=== PATIENT | female | born 1965 | race Caucasian/White ===

== ENCOUNTER 2016-08-24 17:43 | Emergency (ER) | payer OTHER ==
--- NOTE | 2016-08-24 18:22 | ER Document Report ---
ED Medical Screen (RME) - General Stated Complaint: SIDE PAIN Mode of Arrival: Ambulatory Information source: Patient Notes: Patient presents complaining of right-sided abdominal pain. Patient states pain does radiate to right flank area. Patient denies any nausea, vomiting, diarrhea. Patient denies any vaginal bleeding or discharge. hx: Diabetes, cholecystectomy, kidney surgery due to kidney stone I have greeted and performed a rapid initial assessment of this patient. A comprehensive ED assessment and evaluation of the patient, analysis of test results and completion of the medical decision making process will be conducted by additional ED providers. TRAVEL OUTSIDE OF THE [place] IN LAST 30 DAYS: No - Related Data Allergies/Adverse Reactions: levofloxacin [From Levaquin] Allergy (Verified 08/24/16 18:20) Sulfa (Sulfonamide Antibiotics) Allergy (Verified 08/24/16 18:20) Past Medical History - Social History Chew tobacco use (# tins/day): No Frequency of alcohol use: None Drug Abuse: None Renal/ Medical History: Denies: Hx Peritoneal Dialysis Physical Exam - Vital signs Vitals: Temp Pulse Resp BP Pulse Ox 97.7 F 67 16 121/61 96 08/24/16 17:51 08/24/16 17:51 08/24/16 17:51 08/24/16 17:51 08/24/16 17:51 - Back Back: CVA tenderness - Right Course - Vital Signs Vital signs: Temp Pulse Resp BP Pulse Ox 97.7 F 67 16 121/61 96 08/24/16 17:51 08/24/16 17:51 08/24/16 17:51 08/24/16 17:51 08/24/16 17:51
[2016-08-24 18:55] LABS: ABSOLUTE BASOPHILS # (AUTO) 0.1 10^3/uL (0.0-0.2); ABSOLUTE EOSINOPHILS # (AUTO) 0.3 10^3/uL (0.0-0.6); ABSOLUTE LYMPHOCYTES (AUTO) 3.5 10^3/uL (0.5-4.7); ABSOLUTE MONOCYTES (AUTO) 0.5 10^3/uL (0.1-1.4); ABSOLUTE NEUT (AUTO) 3.4 10^3/uL (1.7-8.2); BASOPHILS % (AUTO) 0.9 % (0-2); EOSINOPHILS % (AUTO) 3.7 % (0-6); HEMATOCRIT 42.8 % (36.0-47.0); HEMOGLOBIN 14.9 g/dL (12.0-15.5); HGB HCT DIFFERENCE 1.9; LYMPHOCYTES % (AUTO) 45.3 % (13-45); MEAN CORPUSCULAR HGB CONC 34.8 g/dL (32.0-36.0); MEAN CORPUSCULAR VOLUME 89 fl (80-97); MONOCYTES % (AUTO) 6.9 % (3-13); RED BLOOD COUNT 4.81 10^6/uL (3.72-5.28); RED CELL DISTRIBUTION WIDTH 13.8 % (11.5-14.0); SEGMENTED NEUTROPHILS % (AUTO) 43.2 % (42-78); WHITE BLOOD COUNT 7.8 10^3/uL (4.0-10.5)
[2016-08-24 18:58] LABS: APPEARANCE,URINE SLIGHTLY-CLOUDY; BILIRUBIN,URINE NEGATIVE (NEGATIVE); GLUCOSE, URINE >=500 mg/dL (NEGATIVE); KETONES,URINE NEGATIVE (NEGATIVE); LEUKOCYTE ESTERASE,URINE SMALL (NEGATIVE); NITRITE,URINE POSITIVE (NEGATIVE); PROTEIN,URINE NEGATIVE (NEGATIVE)
[2016-08-24 19:17] LABS: ALANINE AMINOTRANSFERASE 71 U/L (9-52); ALBUMIN 4.3 g/dL (3.5-5.0); ALKALINE PHOSPHATASE 124 U/L (38-126); ANION GAP 12 (5-19); ASPARTATE AMINO TRANSFERASE 34 U/L (14-36); BILIRUBIN,TOTAL 0.5 mg/dL (0.2-1.3); BLOOD UREA NITROGEN 14 mg/dL (7-20); CALCIUM 9.4 mg/dL (8.4-10.2); CARBON DIOXIDE 28 mmol/L (22-30); CHLORIDE 103 mmol/L (98-107); CREATININE RESULT 0.79 mg/dL (0.52-1.25); GLUCOSE 160 mg/dL (75-110); LIPASE 191.6 U/L (23-300); SODIUM 142.5 mmol/L (137-145); TOTAL PROTEIN 7.1 g/dL (6.3-8.2)
[2016-08-24] MEDS ORDERED: NAPROXEN 250 MG TABLET PO ONE (20:46)
[2016-08-24] MEDS ORDERED: CEPHALEXIN 500 MG CAPSULE PO ONE (20:46)
--- NOTE | 2016-08-24 20:49 | ER Document Report ---
ED General - General Chief Complaint: Abdominal Pain Stated Complaint: SIDE PAIN Mode of Arrival: Ambulatory Information source: Patient Notes: 51-year-old female presents with complaints of right lower quadrant and right flank pain that started 3 days ago. Patient notes foul-smelling urine. Denies any fevers chills nausea vomiting or diarrhea. Patient denies any burning on urination TRAVEL OUTSIDE OF THE [place] IN LAST 30 DAYS: No - HPI Onset: Other - Three-day duration Onset/Duration: Persistent Quality of pain: Achy Severity: Mild Pain Level: 1 Associated symptoms: Other Exacerbated by: Other - Urination Relieved by: Denies Similar symptoms previously: No Recently seen / treated by doctor: No - Related Data Allergies/Adverse Reactions: levofloxacin [From Levaquin] Allergy (Verified 08/24/16 18:20) Sulfa (Sulfonamide Antibiotics) Allergy (Verified 08/24/16 18:20) Past Medical History - General Information source: Patient - Social History Smoking Status: Current Every Day Smoker Cigarette use (# per day): Yes Chew tobacco use (# tins/day): No Smoking Education Provided: No Frequency of alcohol use: None Drug Abuse: None Family History: Reviewed & Not Pertinent Patient has suicidal ideation: No Patient has homicidal ideation: No Endocrine Medical History: Reports: Hx Diabetes Mellitus Type 2 Renal/ Medical History: Reports: Hx Kidney Stones. Denies: Hx Peritoneal Dialysis Past Surgical History: Reports: Hx Cholecystectomy, Hx Genitourinary Surgery - BLADDER LIFT, Hx Kidney (Renal Surgery) Review of Systems - Review of Systems Notes: REVIEW OF SYSTEMS: CONSTITUTIONAL : Denies fever, chills, or sweats. Denies recent illness. EENT: Denies eye, ear, throat, or mouth pain or symptoms. Denies nasal or sinus congestion or discharge. Denies throat, tongue, or mouth swelling or difficulty swallowing. CARDIOVASCULAR: Denies chest pain. Denies palpitations or racing or irregular heart beat. Denies ankle edema. RESPIRATORY: Denies cough, cold, or chest congestion. Denies shortness of breath, difficulty breathing, or wheezing. GASTROINTESTINAL: Denies abdominal pain or distention. Denies nausea, vomiting , or diarrhea. Denies blood in vomitus, stools, or per rectum. Denies black, tarry stools. Denies constipation. GENITOURINARY: Admits to foul-smelling urine FEMALE GENITOURINARY: Denies vaginal bleeding, heavy or abnormal periods, irregular periods. Denies vaginal discharge or odor. MUSCULOSKELETAL: Admits to flank pain. SKIN: Denies rash, lesions or sores. HEMATOLOGIC : Denies easy bruising or bleeding. LYMPHATIC: Denies swollen, enlarged glands. NEUROLOGICAL: Denies confusion or altered mental status. Denies passing out or loss of consciousness. Denies dizziness or lightheadedness. Denies headache. Denies weakness or paralysis or loss of use of either side. Denies problems with gait or speech. Denies sensory loss, numbness, or tingling. Denies seizures. PSYCHIATRIC: Denies anxiety or stress. Denies depression, suicidal ideation, or homicidal ideation. ALL OTHER SYSTEMS REVIEWED AND NEGATIVE. Dictation was performed using [employer] voice recognition software PHYSICAL EXAMINATION: GENERAL: Well-appearing, well-nourished and in no acute distress. HEAD: Atraumatic, normocephalic. EYES: Pupils equal round and reactive to light, extraocular movements intact, conjunctiva are normal. ENT: Nares patent, oropharynx clear without exudates. Moist mucous membranes. NECK: Normal range of motion, supple without lymphadenopathy LUNGS: Breath sounds clear to auscultation bilaterally and equal. No wheezes rales or rhonchi. HEART: Regular rate and rhythm without murmurs ABDOMEN: Soft, nontender, nondistended abdomen. No guarding, no rebound. No masses appreciated. Female : deferred Musculoskeletal: Right flank tenderness on palpation CVA NEUROLOGICAL: Cranial nerves grossly intact. Normal speech, normal gait. Normal sensory, motor exams PSYCH: Normal mood, normal affect. SKIN: Warm, Dry, normal turgor, no rashes or lesions noted. Physical Exam - Vital signs Vitals: Temp Pulse Resp BP Pulse Ox 97.7 F 67 16 121/61 96 08/24/16 17:51 08/24/16 17:51 08/24/16 17:51 08/24/16 17:51 08/24/16 17:51 Course - Re-evaluation Re-evalutation: 08/24/16 22:31 Physical examination is consistent with suprapubic right flank pain. Patient has allergies to levofloxacin and sulfa, she will be started on Keflex and is otherwise stable. Lab work otherwise notes no acute abnormality After performing a Medical Screening Examination, I estimate there is LOW risk for ACUTE APPENDICITIS, BOWEL OBSTRUCTION, ACUTE CHOLECYSTITIS, PERFORATED DIVERTICULITIS, INCARCERATED HERNIA, PANCREATITIS, PELVIC INFLAMMATORY DISEASE, PERFORATED ULCER, ECTOPIC , or TUBO-OVARIAN ABSCESS, thus I consider the discharge disposition reasonable. Also, there is no evidence or peritonitis , sepsis, or toxicity. The patient and I have discussed the diagnosis and risks , and we agree with discharging home with close follow-up with the understanding that symptoms and presentations can change. We also discussed returning to the Emergency Department immediately if new or worsening symptoms occur. We have discussed the symptoms which are most concerning (e.g., bloody stool, fever, changing or worsening pain, vomiting) that necessitate immediate return. - Vital Signs Vital signs: Temp Pulse Resp BP Pulse Ox 97.6 F 70 16 118/62 97 08/24/16 21:00 08/24/16 21:00 08/24/16 21:00 08/24/16 21:00 08/24/16 21:00 - Laboratory Result Diagrams: 08/24/16 18:35 08/24/16 18:35 Laboratory results interpreted by me: 08/24/16 08/24/16 08/24/16 18:35 18:35 18:35 Lymphocytes % 45.3 H Glucose 160 H ALT 71 H Urine Glucose (UA) >=500 H Urine Nitrite POSITIVE H Urine Urobilinogen 2.0 H Ur Leukocyte Esterase SMALL H Discharge - Discharge Clinical Impression: RLQ abdominal pain UTI (urinary tract infection) Qualifiers: Urinary tract infection type: acute cystitis Hematuria presence: with hematuria Qualified Code(s): N30.01 - Acute cystitis with hematuria Condition: Stable Disposition: HOME, SELF-CARE Instructions: Abdominal Pain ([facility]), Urinary Tract Infection ([facility]) Additional Instructions: Follow up with your physician tomorrow for further care or return to the ED IMMEDIATELY if symptoms worsen or new concerns occur Prescriptions: Cephalexin Monohydrate [Keflex 500 mg Capsule] 500 mg PO BID #20 capsule Hydrocodone/Acetaminophen [[place] 5-325 mg Tablet] 1 tab PO Q6 #10 tablet Forms: Return to Work
[2016-08-24 21:03] VITALS: BP 118/62
== END 2016-08-24 21:03 | disposition home or self-care (01) ==
LOC: ER 17:43
DX: N30.01 Acute cystitis with hematuria (principal); E11.9 Type 2 diabetes mellitus without complications; F17.210 Nicotine dependence, cigarettes, uncomplicated; Z87.442 Personal history of urinary calculi; Z90.49 Acquired absence of other specified parts of digestive tract; Z88.1 Allergy status to other antibiotic agents; Z88.2 Allergy status to sulfonamides
CPT/HCPCS: 36415; 80053; 81001; 83690; 84703; 85025; 99284

== ENCOUNTER 2016-11-09 16:49 | Emergency (ER) | payer OTHER ==
[2016-11-09] MEDS ORDERED: ASPIRIN 325 MG TABLET PO ONE (18:49)
--- NOTE | 2016-11-09 18:55 | ER Document Report ---
ED Medical Screen (RME) - General TRAVEL OUTSIDE OF THE [place] IN LAST 30 DAYS: No <MEAGNA FAJARDO - Last Filed: 11/09/16 18:48> <DENZEL NOLAND - Last Filed: 11/09/16 20:31> - General Chief Complaint: Urinary Problem Stated Complaint: WEAKNESS,SHORTNESS OF BREATH Time Seen by Provider: 11/09/16 18:40 Notes: 51-year-old female presents to the emergency department from urgent care for "really bad urinary tract infection." Patient states she went to urgent care today for some shortness of breath, heart racing, general malaise, and decreased urination. Patient states she feels like she can't catch her breath. Patient's symptoms were onset 2 days ago. Patient states she is only urinating very small amounts and she normally urinates much more. Patient had a mild stroke in September and was evaluated at [facility]. Patient states she had some fevers yesterday but not today. Patient has diabetes mellitus and is taking metformin. (MEAGAN FAJARDO) - Related Data Allergies/Adverse Reactions: levofloxacin [From Levaquin] Allergy (Verified 11/09/16 18:41) Sulfa (Sulfonamide Antibiotics) Allergy (Verified 11/09/16 18:41) Past Medical History Endocrine Medical History: Reports: Hx Diabetes Mellitus Type 2 Renal/ Medical History: Reports: Hx Kidney Stones. Denies: Hx Peritoneal Dialysis Past Surgical History: Reports: Hx Cholecystectomy, Hx Genitourinary Surgery - BLADDER LIFT, Hx Kidney (Renal Surgery) <MEAGAN FAJARDO - Last Filed: 11/09/16 18:48> Physical Exam <MEAGAN FAJARDO - Last Filed: 11/09/16 18:48> <DENZEL NOLAND - Last Filed: 11/09/16 20:31> - Vital signs Vitals: Temp Pulse Resp BP Pulse Ox 98.3 F 101 H 18 101/62 94 11/09/16 17:30 11/09/16 17:30 11/09/16 17:30 11/09/16 17:30 11/09/16 17:30 - Notes Notes: GENERAL: Alert, interacts well. No acute distress. EYES: Pupils equal, round, and reactive to light. Disconjugate gaze. LUNGS: Clear to auscultation bilaterally, no wheezes, rales, or rhonchi. No respiratory distress. HEART: Regular rate and rhythm. No murmurs, gallops, or rubs. NEUROLOGICAL: Alert and oriented x3. Normal speech. (MEAGAN FAJARDO) Course - Laboratory Result Diagrams: 11/09/16 19:15 11/09/16 19:15 <DENZEL NOLAND - Last Filed: 11/09/16 20:31> - Vital Signs Vital signs: Temp Pulse Resp BP Pulse Ox 98.3 F 101 H 18 101/62 94 11/09/16 17:30 11/09/16 17:30 11/09/16 17:30 11/09/16 17:30 11/09/16 17:30 - Laboratory Laboratory results interpreted by me: 11/09/16 11/09/16 11/09/16 19:15 19:15 19:55 WBC 13.2 H RDW 14.1 H Absolute Neutrophils 8.7 H Glucose 139 H Total Bilirubin 1.6 H Direct Bilirubin 0.5 H AST 46 H ALT 75 H Alkaline Phosphatase 160 H Urine Protein 100 H Urine Blood SMALL H Ur Leukocyte Esterase LARGE H Scribe Documentation - Scribe Written by Scribe:: Jose Enrique Cotton 11/09/16 18:50 acting as scribe for :: Dagmar <MEAGAN FAJARDO - Last Filed: 11/09/16 18:48>
[2016-11-09 19:28] LABS: ABSOLUTE BASOPHILS # (AUTO) 0.1 10^3/uL (0.0-0.2); ABSOLUTE LYMPHOCYTES (AUTO) 3.1 10^3/uL (0.5-4.7); ABSOLUTE MONOCYTES (AUTO) 1.3 10^3/uL (0.1-1.4); ABSOLUTE NEUT (AUTO) 8.7 10^3/uL (1.7-8.2); BASOPHILS % (AUTO) 0.8 % (0-2); EOSINOPHILS % (AUTO) 0.2 % (0-6); HEMATOCRIT 45.8 % (36.0-47.0); HGB HCT DIFFERENCE -0.8; LYMPHOCYTES % (AUTO) 23.6 % (13-45); MEAN CORPUSCULAR HEMOGLOBIN 29.4 pg (27.0-33.4); MEAN CORPUSCULAR HGB CONC 32.8 g/dL (32.0-36.0); MEAN CORPUSCULAR VOLUME 90 fl (80-97); MONOCYTES % (AUTO) 9.9 % (3-13); RED BLOOD COUNT 5.11 10^6/uL (3.72-5.28); RED CELL DISTRIBUTION WIDTH 14.1 % (11.5-14.0); SEGMENTED NEUTROPHILS % (AUTO) 65.5 % (42-78); WHITE BLOOD COUNT 13.2 10^3/uL (4.0-10.5)
--- NOTE | 2016-11-09 19:32 | RADIOLOGY REPORT (SQ) ---
EXAM DESCRIPTION: CHEST PA/LAT COMPLETED DATE/TIME: 11/09/2016 7:23 pm REASON FOR STUDY: palpitations COMPARISON: None. EXAM PARAMETERS: NUMBER OF VIEWS: two views TECHNIQUE: Digital Frontal and Lateral radiographic views of the chest acquired. RADIATION DOSE: NA LIMITATIONS: none FINDINGS: LUNGS AND PLEURA: No opacities, masses or pneumothorax. No pleural effusion. MEDIASTINUM AND HILAR STRUCTURES: No masses or contour abnormalities. HEART AND VASCULAR STRUCTURES: Heart normal size. No evidence for failure. BONES: No acute findings. HARDWARE: None in the chest. OTHER: No other significant finding. IMPRESSION: NO SIGNIFICANT RADIOGRAPHIC FINDING IN THE CHEST. TECHNICAL DOCUMENTATION: JOB ID: [id number] [employer]- All Rights Reserved
[2016-11-09 19:41] LABS: ALANINE AMINOTRANSFERASE 75 U/L (9-52); ALBUMIN 4.4 g/dL (3.5-5.0); ALKALINE PHOSPHATASE 160 U/L (38-126); ANION GAP 13 (5-19); ASPARTATE AMINO TRANSFERASE 46 U/L (14-36); BILIRUBIN,DIRECT 0.5 mg/dL (0.0-0.4); BILIRUBIN,TOTAL 1.6 mg/dL (0.2-1.3); BLOOD UREA NITROGEN 14 mg/dL (7-20); CALCIUM 9.4 mg/dL (8.4-10.2); CARBON DIOXIDE 23 mmol/L (22-30); CHLORIDE 103 mmol/L (98-107); CREATINE KINASE 63 U/L (30-135); CREATININE RESULT 0.87 mg/dL (0.52-1.25); GLUCOSE 139 mg/dL (75-110); POTASSIUM 4.3 mmol/L (3.6-5.0); TOTAL PROTEIN 7.8 g/dL (6.3-8.2)
[2016-11-09] MEDS ORDERED: MORPHINE SULFATE 10 MG/ML INJ IV ONE (19:43)
[2016-11-09] MEDS ORDERED: ONDANSETRON HCL INJ/PF 4 MG/2 ML SDV IV ONE (19:43)
[2016-11-09] MEDS ORDERED: NORMAL SALINE 1000 ML 1,000 ML IV ONE ×3 (19:43→22:43)
--- NOTE | 2016-11-09 19:47 | ER Document Report ---
ED General - General Chief Complaint: Urinary Problem Stated Complaint: WEAKNESS,SHORTNESS OF BREATH Time Seen by Provider: 11/09/16 18:40 Notes: Patient is a 51-year-old female who comes emergency department for chief complaint of feeling poorly for the past 2 days, she states she has decreased urination, she feels like her heart is racing intermittently, she has increased malaise, she states that she feels short of breath intermittently. She states that after she came to the emergency department on referral from urgent care she started having pain in her mid to lower abdomen worse on the right side. She has not eaten anything since last night due to lack of appetite. She states she feels intermittently nauseated. She denies fever, dysuria, cough, chest pain, headache, dizziness. Past medical history of type 2 diabetes on metformin, cholecystectomy, bladder lift, kidney stones. TRAVEL OUTSIDE OF THE [place] IN LAST 30 DAYS: No - Related Data Allergies/Adverse Reactions: levofloxacin [From Levaquin] Allergy (Verified 11/09/16 18:41) Sulfa (Sulfonamide Antibiotics) Allergy (Verified 11/09/16 18:41) Past Medical History - General Information source: Patient - Social History Smoking Status: Never Smoker Frequency of alcohol use: None Drug Abuse: None Lives with: Family Family History: Reviewed & Not Pertinent Endocrine Medical History: Reports: Hx Diabetes Mellitus Type 2 Renal/ Medical History: Reports: Hx Kidney Stones. Denies: Hx Peritoneal Dialysis Past Surgical History: Reports: Hx Cholecystectomy, Hx Genitourinary Surgery - BLADDER LIFT, Hx Kidney (Renal Surgery) Review of Systems - Review of Systems Constitutional: See HPI EENT: No symptoms reported Cardiovascular: See HPI Respiratory: See HPI Gastrointestinal: See HPI Genitourinary: See HPI Female Genitourinary: No symptoms reported Musculoskeletal: No symptoms reported Skin: No symptoms reported Hematologic/Lymphatic: No symptoms reported Neurological/Psychological: See HPI Physical Exam - Vital signs Vitals: Temp Pulse Resp BP Pulse Ox 98.3 F 101 H 18 101/62 94 11/09/16 17:30 11/09/16 17:30 11/09/16 17:30 11/09/16 17:30 11/09/16 17:30 Interpretation: Normal - General General appearance: Appears well In distress: None - Patient appears generally tired but is otherwise in no distress - HEENT Head: Normocephalic, Atraumatic Eyes: Normal Conjunctiva: Normal Extraocular movements intact: Yes Eyelashes: Normal Pupils: PERRL Sinus: Normal Nasal: Normal Mouth/Lips: Normal Mucous membranes: Normal Pharynx: Normal Neck: Normal - Respiratory Respiratory status: No respiratory distress Chest status: Nontender Breath sounds: Normal. No: Decreased air movement, Wheezing Chest palpation: Normal - Cardiovascular Rhythm: Regular, Tachycardia Heart sounds: Normal auscultation, S1 appreciated, S2 appreciated Murmur: No - Abdominal Inspection: Normal Distension: No distension Bowel sounds: Normal Tenderness: Tender - Very mild generalized abdominal tenderness, nonspecific, no guarding, no rebound tenderness, no rigidity, no distention. No: Guarding Organomegaly: No organomegaly - Back Back: Normal, Nontender. No: Tender, CVA tenderness - Extremities General upper extremity: Normal inspection, Nontender, Normal color, Normal ROM , Normal temperature General lower extremity: Normal inspection, Nontender, Normal color, Normal ROM , Normal temperature, Normal weight bearing. No: Lorenzo's sign - Neurological Neuro grossly intact: Yes Cognition: Normal Orientation: AAOx4 Hailey Coma Scale Eye Opening: Spontaneous Hailey Coma Scale Verbal: Oriented Hailey Coma Scale Motor: Obeys Commands Hailey Coma Scale Total: 15 Speech: Normal Motor strength normal: LUE, RUE, LLE, RLE Sensory: Normal - Psychological Associated symptoms: Normal affect, Normal mood - Skin Skin Temperature: Warm Skin Moisture: Dry Skin Color: Normal Course - Re-evaluation Re-evalutation: Initially patient borderline tachycardic with mild hypotension, this worsened to 90s over 50s. Patient has a very mild generalized abdominal tenderness which is nonspecific with no guarding. No CVA tenderness noted. CBC shows mild leukocytosis with elevation of neutrophils but no bandemia, chemistry is generally unremarkable, urine is consistent with infection. Culture placed. Rocephin given. Because of leukocytosis, abdominal pain, and reported flank pain CT was ordered but shows no ureterolithiasis or other acute etiology other than questionable stranding at the left kidney. Possible pyelonephritis. After 2 more liters of fluid patient's blood pressure normalized. Patient states she feels great. Cardiac workup unremarkable. Discussed with Dr. Bey. He recommends orthostatic vital signs and if normal patient can be discharged on oral antibiotic with follow-up recommendations and return precautions. Orthostatics are normal, patient states she feels great, will place on Keflex, discussed follow-up, discussed return precautions in detail, patient states understanding and agreement. - Vital Signs Vital signs: Temp Pulse Resp BP Pulse Ox 99.0 F 70 16 120/80 96 11/09/16 22:27 11/10/16 00:06 11/10/16 00:01 11/10/16 00:06 11/09/16 23:57 - Laboratory Result Diagrams: 11/09/16 19:15 11/09/16 19:15 Laboratory results interpreted by me: 11/09/16 11/09/16 11/09/16 19:15 19:15 19:55 WBC 13.2 H RDW 14.1 H Absolute Neutrophils 8.7 H Glucose 139 H Total Bilirubin 1.6 H Direct Bilirubin 0.5 H AST 46 H ALT 75 H Alkaline Phosphatase 160 H Urine Protein 100 H Urine Blood SMALL H Ur Leukocyte Esterase LARGE H Discharge - Discharge Clinical Impression: Weakness Urinary tract infection Qualifiers: Urinary tract infection type: site unspecified Hematuria presence: without hematuria Qualified Code(s): N39.0 - Urinary tract infection, site not specified Abdominal pain Qualifiers: Abdominal location: generalized Qualified Code(s): R10.84 - Generalized abdominal pain Condition: Stable Disposition: HOME, SELF-CARE Additional Instructions: Workup shows urinary tract infection. You have been given Rocephin, continue treatment with Keflex, we have a culture growing in our lab. You have kidney stones in your left kidney but you are not currently passing any stones. Follow-up with urology. Follow-up with primary care within the next several days. Return to emergency department immediately if you worsen in any way including vomiting, fever, return or increased pain, passing out, or any other concerning symptoms. Prescriptions: Cephalexin Monohydrate [Keflex 500 mg Capsule] 500 mg PO BID #14 capsule Forms: Return to Work
[2016-11-09 19:54] LABS: CREATINE KINASE MB < 0.22 ng/mL (<4.55); TROPONIN I < 0.012 ng/mL
[2016-11-09 20:22] LABS: APPEARANCE,URINE CLOUDY; BILIRUBIN,URINE NEGATIVE (NEGATIVE); GLUCOSE, URINE NEGATIVE (NEGATIVE); KETONES,URINE NEGATIVE (NEGATIVE); LEUKOCYTE ESTERASE,URINE LARGE (NEGATIVE); NITRITE,URINE NEGATIVE (NEGATIVE); PROTEIN,URINE 100 mg/dL (NEGATIVE); URINE SPECIFIC GRAVITY 1.018; UROBILINOGEN,URINE NEGATIVE mg/dL (<2.0)
[2016-11-09] MEDS ORDERED: CEFTRIAXONE 1 GM/D5W RTU 50 ML IV ONE (20:42)
--- NOTE | 2016-11-09 21:26 | RADIOLOGY REPORT (SQ) ---
EXAM DESCRIPTION: CT LTD RENAL STONE PROTOCOL ON COMPLETED DATE/TIME: 11/09/2016 9:03 pm REASON FOR STUDY: right flank and abd pain, nausea, UTI, hx stones COMPARISON: None. TECHNIQUE: CT scan of the abdomen and pelvis performed without intravenous or oral contrast. Images reviewed with lung, soft tissue, and bone windows. Reconstructed coronal and sagittal MPR images revi ewed. All images stored on PACS. All CT scanners at this facility use dose modulation, iterative reconstruction, and/or weight based d osing when appropriate to reduce radiation dose to as low as reasonably achievable (ALARA). [facility]: Dose Right [facility]: CareDose [facility]: Dose Right [facility]: Teradose 4D [facility]: Sendori RADIATION DOSE: 5.31mGy. LIMITATIONS: None. FINDINGS: LOWER CHEST: No significant findings. No nodules or infiltrates. NON-CONTRASTED LIVER, SPLEEN, ADRENALS: Evaluation limited by lack of IV contrast. No identified sign ificant masses. PANCREAS: There is a cyst in the tail the pancreas. This measures 3.6 cm in greatest diameter. No s olid components are appreciated. GALLBLADDER: Surgically absent. RIGHT KIDNEY AND URETER: No suspicious masses. Assessment limited by lack of IV contrast. No signif icant calcifications. No hydronephrosis or hydroureter. LEFT KIDNEY AND URETER: There is mild left perinephric stranding. There are numerous nonobstructing left renal calculi. The largest measures 6.4 mm. Hounsfield units measure 958. No hydronephrosis or hydroureter. AORTA AND RETROPERITONEUM: No aneurysm. No retroperitoneal masses or adenopathy. BOWEL AND PERITONEAL CAVITY: No obvious masses or inflammatory changes. No free fluid. APPENDIX: Normal. PELVIS, BLADDER, AND ABDOMINAL WALL:No abnormal masses. No free fluid. Bladder normal. BONES: No significant findings. OTHER: There are numerous phleboliths in the pelvis. IMPRESSION: 1. Nonobstructing left renal calculi. No hydronephrosis. There is minimal left perinep hric stranding. 2. 3.6 cm simple cyst in the tail the pancreas. 3. Nothing is noted to explain the patient's right lower quadrant and right flank pain. TECHNICAL DOCUMENTATION: JOB ID: [id number] Quality ID # [id number]: Final reports with documentation of one or more dose reduction techniques (e.g., Au tomated exposure control, adjustment of the mA and/or kV according to patient size, use of iterative reconstruction technique) 2010 [employer]- All Rights Reserved
[2016-11-10] MEDS ORDERED: CEPHALEXIN 500 MG CAPSULE PO ONE (00:05)
[2016-11-10 07:42] VITALS: BP 122/84
--- NOTE | 2016-11-10 07:50 | EKG REPORT ---
SEVERITY:- ABNORMAL ECG - SINUS RHYTHM RIGHT BUNDLE BRANCH BLOCK : Confirmed by: Thomas Miramontes MD 10-Nov-2016 07:50:17
== END 2016-11-10 00:20 | disposition home or self-care (01) ==
LOC: ER 16:49
DX: N39.0 Urinary tract infection, site not specified (principal); R53.1 Weakness; R10.84 Generalized abdominal pain; R53.81 Other malaise; R06.02 Shortness of breath; R10.30 Lower abdominal pain, unspecified; R63.0 Anorexia; D72.828 Other elevated white blood cell count; R11.0 Nausea; R00.0 Tachycardia, unspecified; I95.9 Hypotension, unspecified; E11.9 Type 2 diabetes mellitus without complications; Z79.84 Long term (current) use of oral hypoglycemic drugs; Z90.49 Acquired absence of other specified parts of digestive tract; Z88.1 Allergy status to other antibiotic agents; Z88.2 Allergy status to sulfonamides
CPT/HCPCS: 93005; 99285; 96361; 96375; 96365; 36415; 87040; 87086; 82553; 82550; 85025; 87088; 80053; 81001; 84484; 87186; 71020; 76380; 93010; J2270; J2405; J7030; J0696

== ENCOUNTER 2016-12-09 13:57 | Emergency (ER) | payer OTHER ==
[2016-12-09 14:13] VITALS: BP 126/77
--- NOTE | 2016-12-09 15:03 | ER Document Report ---
ED Medical Screen (RME) - General Chief Complaint: Fall Injury Stated Complaint: FALL HEAD PAIN Time Seen by Provider: 12/09/16 14:58 Notes: Patient fell down some steps about noon today and injured her left hand and wrist. Also hit her head, but says "my head is fine". No loss of consciousness. No neurologic deficits. TRAVEL OUTSIDE OF THE [place] IN LAST 30 DAYS: No - Related Data Allergies/Adverse Reactions: levofloxacin [From Levaquin] Allergy (Verified 11/09/16 18:41) Sulfa (Sulfonamide Antibiotics) Allergy (Verified 11/09/16 18:41) Past Medical History Endocrine Medical History: Reports: Hx Diabetes Mellitus Type 2 Renal/ Medical History: Reports: Hx Kidney Stones. Denies: Hx Peritoneal Dialysis Past Surgical History: Reports: Hx Cholecystectomy, Hx Genitourinary Surgery - BLADDER LIFT, Hx Kidney (Renal Surgery) - Immunizations Hx Diphtheria, Pertussis, Tetanus Vaccination: Yes Physical Exam - Vital signs Vitals: Temp Pulse Resp BP Pulse Ox 98.3 F 82 16 126/77 H 96 12/09/16 14:11 12/09/16 14:11 12/09/16 14:11 12/09/16 14:11 12/09/16 14:11 Course - Vital Signs Vital signs: Temp Pulse Resp BP Pulse Ox 98.3 F 82 16 126/77 H 96 12/09/16 14:11 12/09/16 14:11 12/09/16 14:11 12/09/16 14:11 12/09/16 14:11
--- NOTE | 2016-12-09 15:49 | ER Document Report ---
ED Fall - General Chief Complaint: Fall Injury Stated Complaint: FALL HEAD PAIN Time Seen by Provider: 12/09/16 14:58 Notes: Patient fell down some steps about noon today and injured her left hand and wrist. Also hit her head, but says "my head is fine". No loss of consciousness. No neurologic deficits. Not noted any swelling or tenderness of her scalp anywhere. No rib tenderness and no difficulty breathing. No shortness of breath. No abdominal pains. Primary complaint is of pain of the lateral, ulnar aspect of the left wrist and hand. TRAVEL OUTSIDE OF THE [place] IN LAST 30 DAYS: No - Related data Allergies/Adverse Reactions: levofloxacin [From Levaquin] Allergy (Verified 11/09/16 18:41) Sulfa (Sulfonamide Antibiotics) Allergy (Verified 11/09/16 18:41) Past Medical History - Social History Smoking Status: Current Every Day Smoker Cigarette use (# per day): Yes Family History: Reviewed & Not Pertinent Patient has suicidal ideation: No Patient has homicidal ideation: No Neurological Medical History: Reports: Hx Cerebrovascular Accident Endocrine Medical History: Reports: Hx Diabetes Mellitus Type 2 Renal/ Medical History: Reports: Hx Kidney Stones Past Surgical History: Reports: Hx Cholecystectomy, Hx Genitourinary Surgery - BLADDER LIFT, Hx Kidney (Renal Surgery) - Immunizations Hx Diphtheria, Pertussis, Tetanus Vaccination: Yes Review of Systems - Review of Systems Notes: REVIEW OF SYSTEMS: CONSTITUTIONAL : Denies fever. EENT: Denies eye, ear, nose or mouth or throat pain or other symptoms. CARDIOVASCULAR: Denies chest pain. RESPIRATORY: Denies cough, chest congestion, or shortness of breath. GASTROINTESTINAL: Denies abdominal pain or nausea, vomiting, or diarrhea. GENITOURINARY: Denies difficulty or painful urinating, urinary frequency, blood in urine. MUSCULOSKELETAL: Denies back or neck pain. See HPI. SKIN: Denies rash or skin lesions. NEUROLOGICAL: Denies LOC or altered mental status. Denies headache. Denies sensory loss or motor deficits. ALL OTHER SYSTEMS REVIEWED AND NEGATIVE. Physical Exam - Vital signs Vitals: Temp Pulse Resp BP Pulse Ox 98.3 F 82 16 126/77 H 96 12/09/16 14:11 12/09/16 14:11 12/09/16 14:11 12/09/16 14:11 12/09/16 14:11 Interpretation: Normal - Notes Notes: PHYSICAL EXAMINATION: GENERAL: Well-appearing, in no acute distress. Vital signs are normal. HEAD: Atraumatic, normocephalic. No hematoma felt. No tender areas felt. EYES: Pupils equal round and reactive to light, extraocular movements intact. NECK: Normal range of motion, supple. LUNGS: Breath sounds clear and equal bilaterally. HEART: Regular rate and rhythm without murmurs. ABDOMEN: Soft, nontender. No guarding or rebound. BACK: No tenderness throughout entire back. EXTREMITIES: Normal range of motion without pain except patient has complained of pain along the ulnar aspect of the left wrist and left hand. On the dorsal aspect of that wrist, there is a small cystic structure which patient says is new. It looks and feels like a ganglion cyst. I suppose it could be of traumatic origin. No bony deformities or dislocations noted on physical exam. NEUROLOGICAL: Normal speech, normal gait. Normal sensory, motor, and reflex exams. Awake, alert, and oriented x3. Cranial nerves normal. PSYCH: Normal mood, normal affect. SKIN: Warm, dry, no rashes. Course - Vital Signs Vital signs: Temp Pulse Resp BP Pulse Ox 98.3 F 82 16 126/77 H 96 12/09/16 14:11 12/09/16 14:11 12/09/16 14:11 12/09/16 14:11 12/09/16 14:11 - Diagnostic Test Radiology results interpreted by me: 12/09/16 21:04 X-ray of the left wrist and left hand are both normal except for some degenerative arthritic changes. Procedures - Immobilization Left Wrist Immobilizer type: Cock-up Performed by: PCT Post-Proc Neuro Vasc Exam: Normal Alignment checked and good: Yes Discharge - Discharge Clinical Impression: Left wrist sprain Qualifiers: Encounter type: initial encounter Qualified Code(s): S63.502A - Unspecified sprain of left wrist, initial encounter Contusion of head Qualifiers: Encounter type: initial encounter Contusion of head detail: unspecified part of head Qualified Code(s): S00.93XA - Contusion of unspecified part of head, initial encounter Condition: Stable Disposition: HOME, SELF-CARE Additional Instructions: HEAD INJURY PRECAUTIONS: At this point, there is no evidence that your head injury is serious. Observation is necessary, however. Take only clear liquids for the first few hours, unless told otherwise by the doctor. If no pain medication was prescribed, you may take acetaminophen according to the directions on the bottle. Do not take any medication that may alter your level of alertness (unless you've discussed it with the doctor first) . Limit activity for the first 24 hours. Bed rest is best. During the first 24 hours, check to see approximately every two to three hours that the patient is easily arousable, responds normally, and can perform common tasks such as walking without difficulty. Contact your doctor or go to the hospital if any of the following things occur: Persistent vomiting, difficulty in arousing the patient, worsening or continued headache, or failure to improve as expected. Head injuries can cause symptoms that persist for a few days or even a few weeks. MUSCLE STRAIN: You have strained a muscle -- torn the fibers within the muscle. This often occurs with strenuous exertion, or during an injury that suddenly stretches the muscle. The seriousness of a strain varies. Some strains heal within days, others cause problems for months. X-rays cannot show a muscle strain. X-rays are taken only if symptoms suggest that a fracture could be present. The usual treatment of a muscle strain is rest and ice packs. Sometimes, a sling, splint, or crutches may be necessary to rest the muscle. The muscle can be used again once pain subsides. Severe strains require a special exercise and stretching program to prevent permanent stiffness and disability. Your doctor will advise you if this will be necessary. Call the doctor immediately if pain or swelling becomes severe, or if numbness or discoloration develop. CONTUSION: Your injury has resulted in a contusion -- a crushing of the deep tissues. No injury to important structures was detected during the physician's exam. Contusions vary in the amount of pain they cause, and in the length of time required for healing. Typically, the area will become bruised, and will remain painful to touch for two or three weeks. However, most patients are back to working and playing within a few days. After the initial period of rest and cold-packs, your symptoms (together with the doctor's recommendations) will determine how rapidly you can get back to full activity. Usually this means "do what feels okay, but don't do things that hurt." If re-examination was recommended, it's important to follow up as instructed. Call the doctor or return any time if pain increases, if swelling becomes severe, if you develop numbness or weakness in an injured extremity, or if any other alarming symptoms occur. SPRAIN: Your injury is a sprain. A sprain results from stretching or tearing of the ligaments, usually from a twisting injury. The ligaments will require time and protection in order to heal properly. Many sprains are quite disabling and should be taken seriously. The usual initial treatment of sprains is cold packs, elevation, and rest of the injured area. Your physician has assessed the seriousness of your ligament injury, and has outlined a treatment plan. Understand that this treatment may change, depending on how you progress. If a re-examination was recommended, it is important that you follow up as instructed. Call the doctor any time if there is severe pain, numbness, or loss of function in the injured area. SPLINT PRECAUTIONS: A splint has been placed. This will protect the area while healing begins. Your problem does NOT normally require a cast. It MUST, however, be held still! Keep the splint on ALL THE TIME until instructed to remove it by the doctor. As you begin to use the area, be careful. You shouldn't do anything which causes discomfort -- you may disturb the injury even with the splint in place. After the initial period of rest and elevation, if splint does not prevent pain when you move, come back. You may require placement of a different splint , or a cast. If there is unexpected severe pain, or numbness, discoloration, or swelling beyond the splint, you should return at once. If you feel that the splint has broken or become loose, come back. ICE & ELEVATION: Apply ice packs frequently against the painful area. Many different schedules are recommended, such as "20 minutes on, 20 minutes off" or "one hour ice, two hours rest." If you need to work, you may need to go longer between ice treatments. You should plan to have the area ice packed AT LEAST one- fourth of the time. The ice should be applied over the wrap, tape, or splint, or over a layer of cloth -- not directly against the skin. Some ice bags have a built-in cloth and can be put directly on the skin. Your injured part should be elevated as much as possible over the next 48 hours. Try to keep the injury above the level of the heart. Avoid use of the injured area. Elevation and rest will decrease the swelling. ORAL NARCOTIC MEDICATION: You have been given a prescription for pain control. This medication is a narcotic. It's best taken with food, as nausea can result if taken on an empty stomach. Don't operate machinery or drive within six hours of taking this medication. Do not combine this medicine with alcohol, or with any medication which can cause sedation (such as cold tablets or sleeping pills) unless you get permission from the physician. Narcotics tend to cause constipation. If possible, drink plenty of fluids and eat a diet high in fiber and fruits. FOLLOW-UP CARE: If you have been referred to a physician for follow-up care, call the physician s office for an appointment as you were instructed or within the next two days. If you experience worsening or a significant change in your symptoms, notify the physician immediately or return to the Emergency Department at any time for re-evaluation. Prescriptions: Oxycodone HCl/Acetaminophen [Percocet 5-325 mg Tablet] 1 - 2 tab PO Q4H PRN #15 tablet PRN Reason: Forms: Return to Work Referrals: EFRAIN MARCELINO DO [ACTIVE STAFF] - Follow up as needed
--- NOTE | 2016-12-09 15:52 | RADIOLOGY REPORT (SQ) ---
EXAM DESCRIPTION: WRIST LEFT 3 VIEWS COMPLETED DATE/TIME: 12/09/2016 3:35 pm REASON FOR STUDY: Fell and injured left hand and wrist COMPARISON: None. NUMBER OF VIEWS: Three views. TECHNIQUE: AP, lateral, and oblique radiographic images acquired of the left wrist. LIMITATIONS: None. FINDINGS: MINERALIZATION: Normal. BONES: No fracture or dislocation. There are mild degenerative changes in the 1st carpometacarpal art int. SOFT TISSUES: No soft tissue swelling. No foreign body. OTHER: No other significant finding. IMPRESSION: Mild degenerative joint changes with no acute abnormality. TECHNICAL DOCUMENTATION: JOB ID: [id number] [employer]- All Rights Reserved
--- NOTE | 2016-12-09 15:53 | RADIOLOGY REPORT (SQ) ---
EXAM DESCRIPTION: HAND LEFT 3 VIEWS COMPLETED DATE/TIME: 12/09/2016 3:35 pm REASON FOR STUDY: : Injured left hand COMPARISON: None. EXAM PARAMETERS: NUMBER OF VIEWS: Three views. TECHNIQUE: AP, lateral and oblique radiographic images acquired of the left hand. LIMITATIONS: None. FINDINGS: MINERALIZATION: Normal. BONES: No acute fracture or dislocation. No worrisome bone lesions. JOINTS: There are mild degenerative changes the 1st carpometacarpal joint. SOFT TISSUES: No soft tissue swelling. No foreign body. OTHER: No other significant finding. IMPRESSION: Mild degenerative joint changes with acute osseous abnormality. TECHNICAL DOCUMENTATION: JOB ID: [id number] [employer]- All Rights Reserved
== END 2016-12-09 15:56 | disposition home or self-care (01) ==
LOC: ER 13:57
DX: S63.502A Unspecified sprain of left wrist, initial encounter (principal); S00.93XA Contusion of unspecified part of head, initial encounter; W10.9XXA Fall (on) (from) unspecified stairs and steps, initial encounter; M25.532 Pain in left wrist; M79.642 Pain in left hand; E11.9 Type 2 diabetes mellitus without complications; F17.210 Nicotine dependence, cigarettes, uncomplicated; Z86.73 Personal history of transient ischemic attack (TIA), and cerebral infarction without residual deficits
CPT/HCPCS: 99283; 73130; 73110; L3984

== ENCOUNTER 2017-02-28 18:15 | Inpatient (IN) | payer OTHER ==
[2017-02-28] MEDS ORDERED: HYDROCODONE/ACETAMINOPHEN 5-325 MG 6 TAB/DSPK PO PRN (18:47)
[2017-02-28] MEDS ORDERED: ONDANSETRON 4 MG TAB.RAPDIS SL ONE (18:47)
--- NOTE | 2017-02-28 18:48 | ER Document Report ---
ED Medical Screen (RME) - General Chief Complaint: Vomiting Stated Complaint: VOMITING,BACK PAIN Time Seen by Provider: 02/28/17 18:44 Mode of Arrival: Ambulatory Information source: Patient TRAVEL OUTSIDE OF THE [place] IN LAST 30 DAYS: No - HPI Patient complains to provider of: Abdominal pain with nausea and vomiting Onset: Last week Notes: 02/28/17 18:47 Patient is a 51-year-old female presenting to the emergency room today complaining of diffuse abdominal pain with nausea and vomiting that has been going on for the past 7 days, she reports chills with subjective fever, has a history of kidney stones and urinary tract infections in the past with slightly similar symptoms, she does report that the pain starts in the left flank and wraps around to her back into the right flank, however when I palpate her abdomen while sitting up in a chair she is diffusely tender - Related Data Allergies/Adverse Reactions: levofloxacin [From Levaquin] Allergy (Verified 02/28/17 18:27) Sulfa (Sulfonamide Antibiotics) Allergy (Verified 02/28/17 18:27) Past Medical History - Social History Chew tobacco use (# tins/day): No Frequency of alcohol use: None Drug Abuse: None Neurological Medical History: Reports: Hx Cerebrovascular Accident Endocrine Medical History: Reports: Hx Diabetes Mellitus Type 2 Renal/ Medical History: Reports: Hx Kidney Stones. Denies: Hx Peritoneal Dialysis Past Surgical History: Reports: Hx Cholecystectomy, Hx Genitourinary Surgery - BLADDER LIFT, Hx Kidney (Renal Surgery) - Immunizations Hx Diphtheria, Pertussis, Tetanus Vaccination: Yes Physical Exam - Vital signs Vitals: Temp Pulse Resp BP Pulse Ox 97.5 F 97 16 135/81 H 97 02/28/17 18:24 02/28/17 18:24 02/28/17 18:24 02/28/17 18:24 02/28/17 18:24 Course - Vital Signs Vital signs: Temp Pulse Resp BP Pulse Ox 97.5 F 97 16 135/81 H 97 02/28/17 18:24 02/28/17 18:24 02/28/17 18:24 02/28/17 18:24 02/28/17 18:24
[2017-02-28] MEDS ORDERED: HYDROCODONE/ACETAMINOPHEN 5-325 MG TABLET PO ONE (18:56)
[2017-02-28 19:52] LABS: ABSOLUTE BASOPHILS # (AUTO) 0.1 10^3/uL (0.0-0.2); ABSOLUTE EOSINOPHILS # (AUTO) 0.1 10^3/uL (0.0-0.6); ABSOLUTE LYMPHOCYTES (AUTO) 2.5 10^3/uL (0.5-4.7); ABSOLUTE MONOCYTES (AUTO) 0.8 10^3/uL (0.1-1.4); ABSOLUTE NEUT (AUTO) 3.2 10^3/uL (1.7-8.2); BASOPHILS % (AUTO) 0.9 % (0-2); EOSINOPHILS % (AUTO) 1.9 % (0-6); HEMOGLOBIN 13.4 g/dL (12.0-15.5); HGB HCT DIFFERENCE -1.8; MEAN CORPUSCULAR HEMOGLOBIN 29.4 pg (27.0-33.4); MEAN CORPUSCULAR HGB CONC 31.9 g/dL (32.0-36.0); MEAN CORPUSCULAR VOLUME 92 fl (80-97); MONOCYTES % (AUTO) 11.2 % (3-13); RED BLOOD COUNT 4.57 10^6/uL (3.72-5.28); RED CELL DISTRIBUTION WIDTH 13.7 % (11.5-14.0); WHITE BLOOD COUNT 6.7 10^3/uL (4.0-10.5)
[2017-02-28 19:58] LABS: APPEARANCE,URINE CLEAR; BILIRUBIN,URINE NEGATIVE (NEGATIVE); GLUCOSE, URINE >=500 mg/dL (NEGATIVE); KETONES,URINE NEGATIVE (NEGATIVE); LEUKOCYTE ESTERASE,URINE SMALL (NEGATIVE); NITRITE,URINE NEGATIVE (NEGATIVE); PROTEIN,URINE NEGATIVE (NEGATIVE); URINE SPECIFIC GRAVITY 1.028; UROBILINOGEN,URINE NEGATIVE mg/dL (<2.0)
[2017-02-28 20:07] LABS: ALANINE AMINOTRANSFERASE 56 U/L (9-52); ALBUMIN 4.1 g/dL (3.5-5.0); ALKALINE PHOSPHATASE 215 U/L (38-126); ANION GAP 18 (5-19); ASPARTATE AMINO TRANSFERASE 35 U/L (14-36); BILIRUBIN,DIRECT 0.4 mg/dL (0.0-0.4); BILIRUBIN,TOTAL 0.5 mg/dL (0.2-1.3); BLOOD UREA NITROGEN 15 mg/dL (7-20); CALCIUM 9.8 mg/dL (8.4-10.2); CARBON DIOXIDE 21 mmol/L (22-30); CHLORIDE 96 mmol/L (98-107); CREATININE RESULT 0.78 mg/dL (0.52-1.25); LIPASE 170.7 U/L (23-300); POTASSIUM 4.1 mmol/L (3.6-5.0); SODIUM 134.9 mmol/L (137-145); TOTAL PROTEIN 6.9 g/dL (6.3-8.2)
[2017-02-28 20:21] LABS: GLUCOSE 742 mg/dL (75-110)
[2017-02-28] MEDS ORDERED: NORMAL SALINE 1000 ML 1,000 ML IV PRN (20:25)
[2017-02-28 21:15] LABS: VENOUS BLOOD BASE EXCESS -3.1 mmol/L; VENOUS BLOOD HCO3 21.9 mmol/L (20-32); VENOUS BLOOD PH 7.37 (7.30-7.42)
[2017-02-28] MEDS ORDERED: NORMAL SALINE 100 ML with INSULIN REGULAR, HUMAN 100 UNIT IV PRN ×2 (21:34)
--- NOTE | 2017-02-28 21:38 | ER Document Report ---
ED GI/ - General Chief Complaint: Vomiting Stated Complaint: VOMITING,BACK PAIN Time Seen by Provider: 02/28/17 18:44 Mode of Arrival: Ambulatory Information source: Patient Notes: Patient presents complaining of nausea and vomiting for the past week. Patient states she is also had left upper quadrant abdominal pain that radiates to her back and has now gone to bilateral flank area. Patient does report that she is vomited 4 times today. Patient denies any fever, diarrhea, cough or cold symptoms. Patient denies any vaginal bleeding or discharge. Patient does report a previous history of frequent UTIs. Patient states she is recently relocated to this area and has not gotten established with a primary doctor. Patient states she has been off of her metformin for the past month. TRAVEL OUTSIDE OF THE [place] IN LAST 30 DAYS: No - HPI Patient complains to provider of: Abdominal pain, Flank pain, Vomiting Onset: Last week Timing/Duration: Persistent Quality of pain: Achy Pain Level: 4 Location: LUQ, Left flank Vaginal bleeding (Compared to normal period): None Associated symptoms: Nausea, Vomiting. denies: Dysuria, Fever, Loss of appetite , Urinary hesitancy, Urinary frequency, Urinary retention, Urinary urgency, Vaginal discharge Exacerbated by: Denies Relieved by: Denies Similar symptoms previously: Yes Recently seen / treated by doctor: No - Related Data Allergies/Adverse Reactions: levofloxacin [From Levaquin] Allergy (Verified 02/28/17 18:27) Sulfa (Sulfonamide Antibiotics) Allergy (Verified 02/28/17 18:27) Past Medical History - General Information source: Patient - Social History Smoking Status: Current Every Day Smoker Chew tobacco use (# tins/day): No Frequency of alcohol use: None Drug Abuse: None Occupation: [employer] living Lives with: Family Family History: Reviewed & Not Pertinent - Past Medical History Cardiac Medical History: Reports: Hx Hypercholesterolemia Neurological Medical History: Reports: Hx Cerebrovascular Accident Endocrine Medical History: Reports: Hx Diabetes Mellitus Type 2 Renal/ Medical History: Reports: Hx Kidney Stones. Denies: Hx Peritoneal Dialysis GI Medical History: Reports: Other - pancreatitis Past Surgical History: Reports: Hx Cholecystectomy, Hx Genitourinary Surgery - BLADDER LIFT, Hx Kidney (Renal Surgery) - left nephrostomy tube 2008 - Immunizations Hx Diphtheria, Pertussis, Tetanus Vaccination: Yes Review of Systems - Review of Systems Constitutional: No symptoms reported. denies: Fever, Recent illness EENT: No symptoms reported Cardiovascular: No symptoms reported Respiratory: No symptoms reported. denies: Cough, Short of breath Gastrointestinal: Abdominal pain, Nausea, Vomiting. denies: Diarrhea Genitourinary: Flank pain. denies: Dysuria, Discharge Female Genitourinary: No symptoms reported Musculoskeletal: Back pain Skin: No symptoms reported Hematologic/Lymphatic: No symptoms reported Neurological/Psychological: No symptoms reported Physical Exam - Vital signs Vitals: Temp Pulse Resp BP Pulse Ox 97.5 F 97 16 135/81 H 97 02/28/17 18:24 02/28/17 18:24 02/28/17 18:24 02/28/17 18:24 02/28/17 18:24 - General General appearance: Appears well, Alert In distress: None - HEENT Head: Normocephalic, Atraumatic Nasal: Normal Mouth/Lips: Normal Mucous membranes: Dry Pharynx: Normal Neck: Normal, Supple. No: Lymphadenopathy - Respiratory Respiratory status: No respiratory distress Chest status: Nontender Breath sounds: Normal. No: Rales, Rhonchi, Stridor, Wheezing Chest palpation: Normal - Cardiovascular Rhythm: Regular Heart sounds: S1 appreciated, S2 appreciated Murmur: No - Abdominal Inspection: Normal Distension: No distension Bowel sounds: Normal Tenderness: Tender - LUQ Organomegaly: No organomegaly - Back Back: CVA tenderness - bilat. No: Vertebra tenderness - Extremities General upper extremity: Normal inspection, Normal ROM General lower extremity: Normal inspection, Normal ROM - Neurological Neuro grossly intact: Yes Cognition: Normal Orientation: AAOx4 Hanna Coma Scale Eye Opening: Spontaneous Hanna Coma Scale Verbal: Oriented Hailey Coma Scale Motor: Obeys Commands Hailey Coma Scale Total: 15 - Psychological Associated symptoms: Normal affect, Normal mood - Skin Skin Temperature: Warm Skin Moisture: Dry Skin Color: Normal Course - Re-evaluation Re-evalutation: 02/28/17 21:[address] Mohr regarding patient presentation and reviewed diagnostic test results. Recommends adding on hemoglobin A1c and starting insulin drip at 1 unit an hour. Agrees with plan for IV fluid hydration and CT scan. 03/01/17 00:[address] Ravi regarding patient status, recommends repeating chemistry panel and consulting with urology at [facility]. 03/01/17 00:51 call placed to transfer center for consultation with urology at [facility] 03/01/17 01:[address] Castillo (urology at [facility]) and discuss patient's presentation as well as CT report findings. States that patient probably has gas as a result of the organism that is likely infecting her urine. Discussed antibiotic choice with Dr. Castillo, recommends placing patient on Rocephin 03/01/17 01:[address] Ravi who agrees to accept patient as a full admission to [facility] - Vital Signs Vital signs: Temp Pulse Resp BP Pulse Ox 97.8 F 72 21 H 101/56 L 97 03/01/17 04:55 03/01/17 04:55 03/01/17 04:55 03/01/17 04:55 03/01/17 04:55 - Laboratory Result Diagrams: 02/28/17 19:15 03/01/17 01:28 Laboratory results interpreted by me: 02/28/17 02/28/17 02/28/17 19:15 19:15 19:15 MCHC 31.9 L Sodium 134.9 L Chloride 96 L Carbon Dioxide 21 L Glucose 742 H* POC Glucose Hemoglobin A1c % Serum Osmolality ALT 56 H Alkaline Phosphatase 215 H Urine Glucose (UA) >=500 H Urine Blood SMALL H Ur Leukocyte Esterase SMALL H 02/28/17 02/28/17 03/01/17 19:15 19:25 00:32 MCHC Sodium Chloride Carbon Dioxide Glucose POC Glucose 462 H* Hemoglobin A1c % 11.7 H Serum Osmolality 317 H ALT Alkaline Phosphatase Urine Glucose (UA) Urine Blood Ur Leukocyte Esterase 03/01/17 01:28 MCHC Sodium Chloride Carbon Dioxide Glucose 466 H* POC Glucose Hemoglobin A1c % Serum Osmolality ALT Alkaline Phosphatase Urine Glucose (UA) Urine Blood Ur Leukocyte Esterase 03/01/17 01:16 Labs- Entire Visit 02/28/17 02/28/17 02/28/17 19:15 19:15 19:15 WBC 6.7 RBC 4.57 Hgb 13.4 Hct 42.0 MCV 92 MCH 29.4 MCHC 31.9 L RDW 13.7 Plt Count 211 Seg Neutrophils % 48.0 Lymphocytes % 38.0 Monocytes % 11.2 Eosinophils % 1.9 Basophils % 0.9 Absolute Neutrophils 3.2 Absolute Lymphocytes 2.5 Absolute Monocytes 0.8 Absolute Eosinophils 0.1 Absolute Basophils 0.1 VBG pH VBG pCO2 VBG HCO3 VBG Base Excess Sodium 134.9 L Potassium 4.1 Chloride 96 L Carbon Dioxide 21 L Anion Gap 18 BUN 15 Creatinine 0.78 Est GFR ( Amer) > 60 Est GFR (Non-Af Amer) > 60 Glucose 742 H* POC Glucose Hemoglobin A1c % Serum Osmolality Calcium 9.8 Total Bilirubin 0.5 Direct Bilirubin 0.4 Indirect Bilirubin Not Reportable Neonat Total Bilirubin Not Reportable AST 35 ALT 56 H Alkaline Phosphatase 215 H Total Protein 6.9 Albumin 4.1 Lipase 170.7 Urine Color STRAW Urine Appearance CLEAR Urine pH 6.0 Ur Specific [place] 1.028 Urine Protein NEGATIVE Urine Glucose (UA) >=500 H Urine Ketones NEGATIVE Urine Blood SMALL H Urine Nitrite NEGATIVE Urine Bilirubin NEGATIVE Urine Urobilinogen NEGATIVE Ur Leukocyte Esterase SMALL H Urine WBC (Auto) 28 Urine RBC (Auto) 2 Urine Bacteria (Auto) 1+ Squamous Epi Cells Auto 1 Urine Mucus (Auto) RARE Urine Ascorbic Acid NEGATIVE 02/28/17 02/28/17 02/28/17 19:15 19:25 20:58 WBC RBC Hgb Hct MCV MCH MCHC RDW Plt Count Seg Neutrophils % Lymphocytes % Monocytes % Eosinophils % Basophils % Absolute Neutrophils Absolute Lymphocytes Absolute Monocytes Absolute Eosinophils Absolute Basophils VBG pH 7.37 VBG pCO2 39.0 VBG HCO3 21.9 VBG Base Excess -3.1 Sodium Potassium Chloride Carbon Dioxide Anion Gap BUN Creatinine Est GFR ( Amer) Est GFR (Non-Af Amer) Glucose POC Glucose Hemoglobin A1c % 11.7 H Serum Osmolality 317 H Calcium Total Bilirubin Direct Bilirubin Indirect Bilirubin Neonat Total Bilirubin AST ALT Alkaline Phosphatase Total Protein Albumin Lipase Urine Color Urine Appearance Urine pH Ur Specific [place] Urine Protein Urine Glucose (UA) Urine Ketones Urine Blood Urine Nitrite Urine Bilirubin Urine Urobilinogen Ur Leukocyte Esterase Urine WBC (Auto) Urine RBC (Auto) Urine Bacteria (Auto) Squamous Epi Cells Auto Urine Mucus (Auto) Urine Ascorbic Acid 03/01/17 00:32 WBC RBC Hgb Hct MCV MCH MCHC RDW Plt Count Seg Neutrophils % Lymphocytes % Monocytes % Eosinophils % Basophils % Absolute Neutrophils Absolute Lymphocytes Absolute Monocytes Absolute Eosinophils Absolute Basophils VBG pH VBG pCO2 VBG HCO3 VBG Base Excess Sodium Potassium Chloride Carbon Dioxide Anion Gap BUN Creatinine Est GFR ( Amer) Est GFR (Non-Af Amer) Glucose POC Glucose 462 H* Hemoglobin A1c % Serum Osmolality Calcium Total Bilirubin Direct Bilirubin Indirect Bilirubin Neonat Total Bilirubin AST ALT Alkaline Phosphatase Total Protein Albumin Lipase Urine Color Urine Appearance Urine pH Ur Specific [place] Urine Protein Urine Glucose (UA) Urine Ketones Urine Blood Urine Nitrite Urine Bilirubin Urine Urobilinogen Ur Leukocyte Esterase Urine WBC (Auto) Urine RBC (Auto) Urine Bacteria (Auto) Squamous Epi Cells Auto Urine Mucus (Auto) Urine Ascorbic Acid - Diagnostic Test Radiology reviewed: Reports reviewed Discharge - Discharge Clinical Impression: Pyelonephritis, Non-compliance Diabetes Qualifiers: Diabetes mellitus type: type 2 Diabetes mellitus complication status: with hyperglycemia 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
[2017-02-28] MEDS ORDERED: INSULIN LISPRO 100 UNIT/ML 3 ML VIAL ONE (22:09)
[2017-02-28] MEDS ORDERED: INSULIN REG, HUMAN 100 UNIT/ML 3 ML VIAL (PYX) ONE (22:10)
--- NOTE | 2017-02-28 23:50 | RADIOLOGY REPORT (SQ) ---
EXAM DESCRIPTION: CT ABD/PELVIS WITH IV ONLY COMPLETED DATE/TIME: 02/28/2017 11:13 pm REASON FOR STUDY: LUQ, bilat flank pain, hyperglycemia COMPARISON: 11/09/2016 TECHNIQUE: CT scan of the abdomen and pelvis performed using helical scanning technique with dynamic intravenous contrast injection. No oral contrast. Images reviewed with lung, soft tissue, and bone windows. Reconstructed coronal and sagittal MPR images reviewed. Delayed images for evaluation of the urinary system also acquired. All images stored on PACS. All CT scanners at this facility use dose modulation, iterative reconstruction, and/or weight based d osing when appropriate to reduce radiation dose to as low as reasonably achievable (ALARA). [facility]: Dose Right [facility]: CareDose [facility]: Dose Right [facility]: Teradose 4D [facility]: [email or web address] CONTRAST TYPE AND DOSE: contrast/concentration: Isovue 370.00 mg/ml; Total Contrast Delivered: 69.0 ml; Total Saline Delivered: 65.0 ml RENAL FUNCTION: GFR > 60. RADIATION DOSE: Up-to-date CT equipment and radiation dose reduction techniques were employed. CTDIv ol: 5.5 mGy. DLP: 604 mGy-cm.. LIMITATIONS: None. FINDINGS: LOWER CHEST: No significant findings. No nodules or infiltrates. LIVER: Normal size. No masses. No dilated ducts. SPLEEN: Normal size. No focal lesions. PANCREAS: 4.1 cm cystic lesion in the tail of the pancreas, slightly bigger than the prior exam wher e it measured 3.6 cm in greatest dimension. . No significant calcifications. No adjacent inflammatio n or peripancreatic fluid collections. Pancreatic duct not dilated. GALLBLADDER: Surgically absent. ADRENAL GLANDS: No significant masses or asymmetry. RIGHT KIDNEY AND URETER: No solid masses. No significant calcifications. No hydronephrosis or hyd roureter. LEFT KIDNEY AND URETER: There is gas present in the collecting system of the left kidney and proxima l ureter with mild adjacent fat stranding in the pararenal space. Multiple parenchymal calcification s. No hydronephrosis or hydroureter. AORTA AND VESSELS: No aneurysm. No dissection. Renal arteries, SMA, celiac without stenosis. RETROPERITONEUM: There is similar left upper retroperitoneal retroperitoneal adenopathy. BOWEL AND PERITONEAL CAVITY: No masses or inflammatory changes. No free fluid or peritoneal masses. APPENDIX: Normal. PELVIS: No mass. No free fluid. Normal bladder. ABDOMINAL WALL: No masses. No hernias. BONES: No significant or acute findings. OTHER: No other significant finding. IMPRESSION: There is gas present in the collecting system of the bladder, left kidney and proximal u reter with mild adjacent fat stranding in the left pararenal space, this appearance is concerning for infection, correlate for history of recent urologic instrumentation. Multiple left renal parenchymal stones. No hydronephrosis or hydroureter.There is similar left upper retroperitoneal retroperitone al adenopathy. 4.1 cm cystic lesion in the tail of the pancreas, slightly bigger than the prior exam where it measu red 3.6 cm in greatest dimension. TECHNICAL DOCUMENTATION: JOB ID: [id number] Quality ID # [id number]: Final reports with documentation of one or more dose reduction techniques (e.g., Au tomated exposure control, adjustment of the mA and/or kV according to patient size, use of iterative reconstruction technique) 2010 [employer]- All Rights Reserved
[2017-03-01] MEDS ORDERED: CEFTRIAXONE 1 GM/D5W RTU 1 GM/50 ML RTUPB IV ONE (00:18)
[2017-03-01] MEDS: NORMAL SALINE 1000 ML 1,000 ML IV PRN ×4 (01:00→19:33)
[2017-03-01] MEDS ORDERED: NORMAL SALINE 100 ML with INSULIN REGULAR, HUMAN 100 UNIT IV PRN ×2 (01:14)
[2017-03-01] MEDS ORDERED: GLUCAGON,HUMAN RECOMB 1 MG INJ IM PRN (01:14)
[2017-03-01] MEDS ORDERED: DEXTROSE 50%-WATER 25 GM/50 ML DISP.SYRIN IV PRN ×2 (01:14)
[2017-03-01] MEDS ORDERED: DEXTROSE 40% GEL 15 GM TUBE PO PRN ×2 (01:14)
[2017-03-01] MEDS ORDERED: HYDROCODONE/ACETAMINOPHEN 5-325 MG TABLET PO ONE (01:23)
[2017-03-01 01:49] LABS: ANION GAP 11 (5-19); BLOOD UREA NITROGEN 13 mg/dL (7-20); CALCIUM 8.7 mg/dL (8.4-10.2); CARBON DIOXIDE 23 mmol/L (22-30); CHLORIDE 107 mmol/L (98-107); CREATININE RESULT 0.59 mg/dL (0.52-1.25); POTASSIUM 4.3 mmol/L (3.6-5.0)
[2017-03-01 02:00] LABS: GLUCOSE 466 mg/dL (75-110)
[2017-03-01] MEDS ORDERED: PROMETHAZINE HCL INJ 25 MG/1 ML VIAL IV PRN (05:48)
[2017-03-01] MEDS ORDERED: ACETAMINOPHEN 325 MG TABLET PO PRN (05:48)
[2017-03-01] MEDS ORDERED: MAGNESIUM HYDROXIDE SUSP 30 ML UDCUP PO PRN (05:49)
[2017-03-01] MEDS ORDERED: NICOTINE 14 MG/24 HR PATCH.TD24 TD PRN (05:50)
[2017-03-01] MEDS ORDERED: PIPERACILLIN SODIUM/TAZOBACTAM 3.375 GM in NORMAL SALINE 100 ML IV SCH (06:00)
--- NOTE | 2017-03-01 06:07 | PDOC H&P ---
History of Present Illness Admission Date/PCP: 03/01/17 01:29 PCP None Patient complains of: N/V, back pain History of Present Illness: KAYLEY CALLOWAY is a 51 year old female with underlying type 2 diabetes mellitus, hypothyroidism, mild reflux, status post prior stroke in September of this year, with no reported aftereffects, along with,, by her account fairly frequent urinary tract infections, who presents to the emergency room for evaluation of approximately a one-week history of nausea and vomiting, along with initially left upper quadrant abdominal pain that eventually radiated to her back, and then transitioned to bilateral flank pain. 4 episodes of vomiting in the last 4 days. Due to her nausea and vomiting, has not been able to tolerate her oral medications for several days. No fever chills, diarrhea or cough. Patient has been discussed with emergency room nurse practitioner who evaluated the patient. Nurse practitioner also discussed the patient with Dr. Castillo (sp.?? ), on-call urologist at [facility], in particular concerning the CT scan results with air in the urinary tract. Urologist felt patient could be adequately managed at our facility. Dictation via voice recognition software. Laboratory results are listed in Apieron and are reviewed. X-ray summary results are listed below, with full report(s) reviewed. . Social history/personal habits: . Has children. 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 Up until approximately 2 weeks ago, was smoking a pack a day; now down to half pack a day. No alcohol or illicit drug use. Allergies/adverse reactions are listed in Ap[facility] and are reviewed. Home medications initially autopopulated into [facility] may not accurately reflect patient's true medications, dosages, and/or frequencies. electrical/instrument technician to reconcile medications. Unfortunately, patient not certain of all medications/dosages/frequencies. REVIEW OF SYSTEMS: Constitutional: No fever or chills. Eyes: Wears glasses. ENT: No swallowing problems or complaints. Denies hearing loss. Pulmonary: No current complaints. Cardiovascular: No current complaints, including chest pain. Gastrointestinal: See history and present illness. Skin: No current complaints, including rashes. Hematologic: Easy bruising. Neurologic: No current complaints, including numbness or tingling. Musculoskeletal: No current or chronic joint complaints, such as arthritis. Psychiatric: Denies anxiety or depression. Endocrine: No current complaints, including polyuria. Genitourinary: No current complaints, including dysuria. PHYSICAL EXAMINATION: 5 feet 2 inches tall. 65.8 kg. BMI 26.5 kg/m. 97% saturation on room air. Respirations are 21 and unlabored. Temperature 97.8. Blood pressure 101/52. Pulse 72 and regular. Slightly overweight somewhat chronically ill-appearing female who appears not to feel very well. Awake alert pleasant and cooperative, however. is present at her side; patient approves. Female floor nurse Kim is present. Skin is warm and dry. No grossly obvious evidence of rash in areas of skin examined. No subcutaneous nodules palpated. ENT: Hearing grossly normal to normal conversation. Tongue midline on protrusion pink and moist. Eyes: No scleral icterus. Pupils equal and reactive to light at 4 mm. [place] conjunctivae. Slight right lid droop, which patient states is a chronic finding , without recent change. Neck is supple and nontender to gentle active range of motion and palpation. Midline trachea. No palpable thyroid nodule mass enlargement or tenderness. Lymphatic: No palpable cervical or clavicular nodes. Neck and lymphatic exams limited by patient body habitus. Psychiatric: Reasonable insight into acute and chronic medical issues. Oriented to time location and why here. Lungs: Auscultation reveals clear and equal breath sounds bilaterally. No use of accessory respiratory muscles. Cardiovascular: Heart regular rate and rhythm, without gallop murmur or rub. No carotid or abdominal aortic bruits. No ankle or pedal edema. Faintly palpable dorsalis pedis pulses. Abdomen:soft slightly distended with positive bowel sounds. Unable to adequately evaluate abdomen for masses or organomegaly due to distention. Very mild left upper quadrant discomfort to palpation, perhaps a bit more noticeable than the left flank. Certainly no guarding or peritoneal signs. Otherwise, abdomen and right flank are nontender to palpation. Extremities: Feet are warm and dry. No calf tenderness to compression. No grossly obvious visual evidence of calf swelling. Gentle manipulation of lower extremities fails to reveal any obvious evidence of injury or instability to knees hips or ankles. Neurologic: Moves upper extremities grossly normally. Patellar reflexes absent. Absent Babinski. Light touch is intact at feet. Dorsiflexion and plantarflexion of feet 5 / 5 and symmetric. Past Medical History Cardiac Medical History: Reports: Hyperlipidema Denies: Atrial Fibrillation, Congestive Heart Failure, Coronary Artery Disease, DVT, Myocardial Infarction, Hypertension, Pulmonary Embolism Pulmonary Medical History: Denies: Asthma, Chronic Obstructive Pulmonary Disease (COPD), Sleep Apnea EENT Medical History: Reports: Eyes - Glasses Denies: Ears, Throat Neurological Medical History: Reports: Ischemic CVA, Other - Stroke September 2016, without aftereffects Denies: Hemorrhagic CVA, Seizures Endocrine Medical History: Reports: Diabetes Mellitus Type 2, Hypothyroidism - Postoperative; surgery for goiter Denies: Diabetes Mellitus Type 1, Hyperthyroidism Renal/ Medical History: Reports: Other - Frequent UTIs GI Medical History: Reports: Gastroesophageal Reflux Disease, Other - pancreatitis Denies: Cirrhosis, Hepatitis, Peptic Ulcer Disease Musculoskeltal Medical History: Denies: Arthritis Skin Medical History: Reports: None Psychiatric Medical History: Reports: Tobacco Dependency Denies: Alcohol Dependency, Depression, General Anxiety Disorder, Substance Abuse Hematology: Reports: Other - Easy bruising Infectious Medical History: Denies: Hepatitis B, Hepatitis C Past Surgical History Past Surgical History: Reports: Cholecystectomy, Other - Left nephrostomy tube, 2008, due to large stone; bladder tack Social History Information Source: Patient, Emergency Med Personnel, [facility] Records Lives with: Spouse/Significant other Smoking Status: Current Every Day Smoker Cigarettes Packs Per Day: 1 Frequency of Alcohol Use: None Hx Recreational Drug Use: No Drugs: None Hx Prescription Drug Abuse: No - Advance Directive Resuscitation Status: Full Code Family History Family History: Reviewed & Not Pertinent Parental Family History Reviewed: Yes - Mother alive and hypertensive. Father alive, uncertain health status. Children Family History Reviewed: Yes - Healthy Sibling(s) Family History Reviewed.: Yes - Hypertension Medication/Allergy Home Medications: Aspirin 82 mg PO DAILY 03/01/17 Atorvastatin Calcium [Lipitor 80 mg Tablet] 80 mg PO QHS 03/01/17 Levothyroxine Sodium [Synthroid] 75 mcg PO DAILY 03/01/17 Metformin HCl 500 mg PO BID 03/01/17 Allergies/Adverse Reactions: levofloxacin [From Levaquin] Allergy (Verified 02/28/17 18:27) Sulfa (Sulfonamide Antibiotics) Allergy (Verified 02/28/17 18:27) Physical Exam Vital Signs: Temp Pulse Resp BP Pulse Ox 97.8 F 72 21 H 101/56 L 97 03/01/17 04:55 03/01/17 04:55 03/01/17 04:55 03/01/17 04:55 03/01/17 04:55 Intake & Output 02/28/17 03/01/17 03/02/17 00:59 00:59 00:59 Weight 65.8 kg Results Impressions: Abdomen/Pelvis CT 02/28/17 21:35 IMPRESSION: There is gas present in the collecting system of the bladder, left kidney and proximal ureter with mild adjacent fat stranding in the left pararenal space, this appearance is concerning for infection, correlate for history of recent urologic instrumentation. Multiple left renal parenchymal stones. No hydronephrosis or hydroureter.There is similar left upper retroperitoneal retroperitoneal adenopathy. 4.1 cm cystic lesion in the tail of the pancreas, slightly bigger than the prior exam where it measured 3.6 cm in greatest dimension. Assessment & Plan - Diagnosis (1) History of CVA (cerebrovascular accident) Is this a current diagnosis for this admission?: Yes Plan: Resume home medications as appropriate once these have been determined and reviewed. (2) Retroperitoneal lymphadenopathy Is this a current diagnosis for this admission?: Yes Plan: Surgery consult. Both and patient understand the importance of follow- up of this abnormal finding, to ensure the findings are not due to cancer. Discussed with day hospitalist team. (3) Pancreatic cyst Is this a current diagnosis for this admission?: Yes Plan: Surgery consult. Both and patient understand the importance of follow- up of this abnormal finding, to ensure the findings are not due to cancer. Discussed with day hospitalist team. (4) Tobacco dependency Is this a current diagnosis for this admission?: Yes Plan: As needed nicotine patch. (5) Pyelonephritis Is this a current diagnosis for this admission?: Yes Plan: Zosyn. As needed medication for control of pain, fever, nausea and vomiting. IV Pepcid. I have strongly encouraged patient not to get out of bed without notifying staff , to avoid a fall with injury. Knee high SCDs for DVT prophylaxis, along with subcutaneous Lovenox. Impression and plans were discussed with patient and , both of whom concur. Time spent in evaluation and management of patient: 70 minutes. 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 Insulin drip protocol. - Time Time Spent: 50 to 70 Minutes Anticipated discharge: Home Within: Other - Inpatient Certification Based on my medical assessment, after consideration of the patient's comorbidities, presenting symptoms, or acuity I expect that the services needed warrant INPATIENT care.: Yes I certify that my determination is in accordance with my understanding of Medicare's requirements for reasonable and necessary INPATIENT services [42 CFR 412.3e].: Yes Medical Necessity: Need Close Monitoring Due to Risk of Patient Decompensation, Need For IV Fluids, Need For Continuous Telemetry Monitoring, Need for IV Antibiotics, Risk of Diagnosis Which Will Require Inpatient Eval/Care/Monitoring Post Hospital Care: D/C or Transfer Summary
[2017-03-01] MEDS ORDERED: DEXTROSE 5%-1/2 NORMAL SALINE 1,000 ML IV PRN (06:09)
[2017-03-01 06:25] LABS: ADD ON TESTING BLD IN LAB ACKNOWLEDGE
[2017-03-01] MEDS ORDERED: PIPERACILLIN/TAZOBACTAM 3.375 GM VIAL IV ONE (06:25)
[2017-03-01] MEDS: MORPHINE SULFATE 10 MG/ML INJ IV PRN ×4 (06:28→22:00)
[2017-03-01 06:35] LABS: ABSOLUTE BASOPHILS # (AUTO) 0.1 10^3/uL (0.0-0.2); ABSOLUTE EOSINOPHILS # (AUTO) 0.2 10^3/uL (0.0-0.6); ABSOLUTE LYMPHOCYTES (AUTO) 2.2 10^3/uL (0.5-4.7); ABSOLUTE MONOCYTES (AUTO) 0.6 10^3/uL (0.1-1.4); ABSOLUTE NEUT (AUTO) 2.5 10^3/uL (1.7-8.2); BASOPHILS % (AUTO) 1.1 % (0-2); EOSINOPHILS % (AUTO) 3.7 % (0-6); HEMATOCRIT 31.4 % (36.0-47.0); HGB HCT DIFFERENCE 0.4; LYMPHOCYTES % (AUTO) 38.5 % (13-45); MEAN CORPUSCULAR HEMOGLOBIN 29.8 pg (27.0-33.4); MEAN CORPUSCULAR HGB CONC 33.6 g/dL (32.0-36.0); MEAN CORPUSCULAR VOLUME 89 fl (80-97); MONOCYTES % (AUTO) 11.2 % (3-13); RED BLOOD COUNT 3.55 10^6/uL (3.72-5.28); RED CELL DISTRIBUTION WIDTH 13.3 % (11.5-14.0); SEGMENTED NEUTROPHILS % (AUTO) 45.5 % (42-78); WHITE BLOOD COUNT 5.6 10^3/uL (4.0-10.5)
[2017-03-01 06:39] LABS: MAGNESIUM 1.8 mg/dL (1.6-2.3)
[2017-03-01 06:40] LABS: ANION GAP 9 (5-19); BLOOD UREA NITROGEN 9 mg/dL (7-20); CALCIUM 8.1 mg/dL (8.4-10.2); CARBON DIOXIDE 22 mmol/L (22-30); CHLORIDE 109 mmol/L (98-107); GLUCOSE 269 mg/dL (75-110); SODIUM 140.3 mmol/L (137-145)
[2017-03-01 06:41] LABS: HEMOGLOBIN 10.6 g/dL (12.0-15.5)
[2017-03-01 06:47] LABS: POTASSIUM 3.3 mmol/L (3.6-5.0)
[2017-03-01] MEDS ORDERED: INSULIN GLARGINE,HUM.REC.ANLOG 1,000 UNIT/10 ML UNIT SUBCUT ONE (09:33)
[2017-03-01] MEDS: ENOXAPARIN SODIUM INJ 40 MG/0.4 ML DISP.SYRIN SUBCUT SCH (09:42)
[2017-03-01] MEDS: POTASSIUM CHLORIDE 10 MEQ TABLET.SA PO SCH ×2 (09:43→22:02)
[2017-03-01] MEDS: FAMOTIDINE INJ/PF 20 MG/2 ML SDV IV SCH ×2 (09:43→22:01)
[2017-03-01] MEDS: INSULIN GLARGINE,HUM.REC.ANLOG 300 UNIT/3 ML INSULN.PEN SUBCUT SCH (09:52)
[2017-03-01 10:08] LABS: ANION GAP 8 (5-19); BLOOD UREA NITROGEN 8 mg/dL (7-20); CALCIUM 7.9 mg/dL (8.4-10.2); CARBON DIOXIDE 23 mmol/L (22-30); CHLORIDE 107 mmol/L (98-107); CREATININE RESULT 0.52 mg/dL (0.52-1.25); GLUCOSE 270 mg/dL (75-110); POTASSIUM 3.2 mmol/L (3.6-5.0); SODIUM 138.3 mmol/L (137-145)
--- NOTE | 2017-03-01 12:00 | PDOC PROGRESS REPORT ---
Subjective Progress Note for:: 03/01/17 Subjective:: Patient reports that her back pain is improved. Physical Exam Vital Signs: Temp Pulse Resp BP Pulse Ox 97.9 F 72 16 106/50 L 97 03/01/17 07:38 03/01/17 07:38 03/01/17 07:38 03/01/17 07:38 03/01/17 07:38 Intake & Output 02/28/17 03/01/17 03/02/17 06:59 06:59 06:59 Intake Total 1540 Balance 1540 Weight 65.8 kg General appearance: PRESENT: no acute distress Eye exam: PRESENT: conjunctiva pink. ABSENT: scleral icterus Ear exam: PRESENT: normal external ear exam Mouth exam: PRESENT: moist, tongue midline Neck exam: ABSENT: JVD Respiratory exam: PRESENT: clear to auscultation maribell. ABSENT: rales, rhonchi, wheezes Cardiovascular exam: PRESENT: RRR. ABSENT: diastolic murmur, rubs, systolic murmur GI/Abdominal exam: PRESENT: normal bowel sounds, soft. ABSENT: distended, guarding, mass, organolmegaly, rebound, tenderness Extremities exam: ABSENT: calf tenderness, clubbing, pedal edema Neurological exam: PRESENT: alert, awake, oriented to person, oriented to place , oriented to time, oriented to situation, CN II-XII grossly intact. ABSENT: motor sensory deficit Psychiatric exam: PRESENT: appropriate affect Skin exam: PRESENT: dry, intact, warm. ABSENT: cyanosis, rash Results Laboratory Results: 03/01/17 06:15 03/01/17 09:13 03/01/17 03/01/17 03/01/17 06:15 06:15 06:15 WBC RBC Hgb Hct MCV MCH MCHC RDW Plt Count Seg Neutrophils % Lymphocytes % Monocytes % Eosinophils % Basophils % Absolute Neutrophils Absolute Lymphocytes Absolute Monocytes Absolute Eosinophils Absolute Basophils Sodium 140.3 Potassium 3.3 L D Chloride 109 H Carbon Dioxide 22 Anion Gap 9 BUN 9 Creatinine 0.50 L Est GFR ( Amer) > 60 Est GFR (Non-Af Amer) > 60 Glucose 269 H Calcium 8.1 L Magnesium 1.8 TSH 10.90 H 03/01/17 03/01/17 06:15 09:13 WBC 5.6 RBC 3.55 L Hgb 10.6 L D Hct 31.4 L MCV 89 MCH 29.8 MCHC 33.6 RDW 13.3 Plt Count 152 Seg Neutrophils % 45.5 Lymphocytes % 38.5 Monocytes % 11.2 Eosinophils % 3.7 Basophils % 1.1 Absolute Neutrophils 2.5 Absolute Lymphocytes 2.2 Absolute Monocytes 0.6 Absolute Eosinophils 0.2 Absolute Basophils 0.1 Sodium 138.3 Potassium 3.2 L Chloride 107 Carbon Dioxide 23 Anion Gap 8 BUN 8 Creatinine 0.52 Est GFR ( Amer) > 60 Est GFR (Non-Af Amer) > 60 Glucose 270 H Calcium 7.9 L Magnesium TSH Impressions: Abdomen/Pelvis CT 02/28/17 21:35 IMPRESSION: There is gas present in the collecting system of the bladder, left kidney and proximal ureter with mild adjacent fat stranding in the left pararenal space, this appearance is concerning for infection, correlate for history of recent urologic instrumentation. Multiple left renal parenchymal stones. No hydronephrosis or hydroureter.There is similar left upper retroperitoneal retroperitoneal adenopathy. 4.1 cm cystic lesion in the tail of the pancreas, slightly bigger than the prior exam where it measured 3.6 cm in greatest dimension. Assessment & Plan - Diagnosis (1) Pyelonephritis Is this a current diagnosis for this admission?: Yes Plan: Currently is on Zosyn. She is growing gram-negative rods from her urine culture. Clinically she is improving. (2) Diabetes mellitus type 2, uncontrolled Qualifiers: Diabetes mellitus complication status: without complication Diabetes mellitus personal care aide insulin use: without senior care use Qualified Code(s): E11.65 - Type 2 diabetes mellitus with hyperglycemia Is this a current diagnosis for this admission?: Yes Plan: The patient has been on insulin drip. Her blood sugars have improved. She is not acidotic and we will DC the insulin drip and start her on Lantus as well as sliding scale insulin. She normally uses metformin as an outpatient. (3) History of CVA (cerebrovascular accident) Is this a current diagnosis for this admission?: Yes (4) Pancreatic cyst Is this a current diagnosis for this admission?: Yes Plan: Asymptomatic with no abdominal pain currently. (5) Retroperitoneal lymphadenopathy Is this a current diagnosis for this admission?: Yes Plan: Secondary to pyelonephritis. Patient will need to have this followed up as an outpatient. - Time Time Spent with patient: 25-34 minutes - Inpatient Certification Medical Necessity: Need For IV Fluids, Need for IV Antibiotics
[2017-03-01] MEDS: INSULIN LISPRO 100 UNIT/ML 3 ML VIAL SUBCUT PRN ×3 (12:29→22:02)
[2017-03-01] MEDS: PIPERACILLIN SODIUM/TAZOBACTAM 3.375 GM in DEXTROSE 5%-WATER 100 ML IV SCH ×2 (12:30→18:11)
--- NOTE | 2017-03-01 13:14 | PDOC CONSULTATION ---
Consultation Consult Date: 03/01/17 Consult reason:: pancreatic cyst History of Present Illness Admission Date/PCP: 03/01/17 01:29 History of Present Illness: KAYLEY CALLOWAY is a 51 year old female with underlying type 2 diabetes mellitus, hypothyroidism, mild reflux, status post prior stroke in September of this year, with no reported aftereffects, along with,, by her account fairly frequent urinary tract infections, who presents to the emergency room for evaluation of approximately a one-week history of nausea and vomiting, along with initially left upper quadrant abdominal pain that eventually radiated to her back, and then transitioned to bilateral flank pain. 4 episodes of vomiting in the last 4 days. Due to her nausea and vomiting, has not been able to tolerate her oral medications for several days. No fever chills, diarrhea or cough. Past Medical History Cardiac Medical History: Reports: Hyperlipidema Denies: Atrial Fibrillation, Congestive Heart Failure, Coronary Artery Disease, DVT, Myocardial Infarction, Hypertension, Pulmonary Embolism Pulmonary Medical History: Denies: Asthma, Chronic Obstructive Pulmonary Disease (COPD), Sleep Apnea EENT Medical History: Reports: Eyes - Glasses, Other - Easy bruising Denies: Ears, Throat Neurological Medical History: Reports: Ischemic CVA, Other - Stroke September 2016, without aftereffects Denies: Hemorrhagic CVA, Seizures Endocrine Medical History: Reports: Diabetes Mellitus Type 2, Hypothyroidism - Postoperative; surgery for goiter Denies: Diabetes Mellitus Type 1, Hyperthyroidism Renal/ Medical History: Reports: Other - Frequent UTIs GI Medical History: Reports: Gastroesophageal Reflux Disease, Other - pancreatitis Denies: Cirrhosis, Hepatitis, Peptic Ulcer Disease Musculoskeltal Medical History: Denies: Arthritis Skin Medical History: Reports: None Psychiatric Medical History: Reports: Tobacco Dependency Denies: Alcohol Dependency, Depression, General Anxiety Disorder, Substance Abuse Hematology: Reports: Other - Easy bruising Infectious Medical History: Denies: Hepatitis B, Hepatitis C Past Surgical History Past Surgical History: Reports: Cholecystectomy, Other - Left nephrostomy tube, 2008, due to large stone; bladder tack Social History Lives with: Spouse/Significant other Smoking Status: Current Every Day Smoker Cigarettes Packs Per Day: 1 Frequency of Alcohol Use: None Hx Recreational Drug Use: No Drugs: None Hx Prescription Drug Abuse: No - Advance Directive Resuscitation Status: Full Code Family History Family History: Reviewed & Not Pertinent Parental Family History Reviewed: Yes Children Family History Reviewed: No Sibling(s) Family History Reviewed.: No Medication/Allergy Home Medications: Aspirin [Ecotrin 81 mg EC Tablet] 81 mg PO DAILY 03/01/17 Atorvastatin Calcium [Lipitor 80 mg Tablet] 80 mg PO QHS 03/01/17 Levothyroxine Sodium [Synthroid 0.075 mg Tablet] 0.075 mg PO ACBRKFST 03/01/17 Metformin HCl [Glucophage 500 mg Tablet] 500 mg PO BID 03/01/17 Allergies/Adverse Reactions: levofloxacin [From Levaquin] Allergy (Verified 02/28/17 18:27) Sulfa (Sulfonamide Antibiotics) Allergy (Verified 02/28/17 18:27) Review of Systems Review of Systems: Constitutional symptoms no no report of HEENT no visual or hearing problems or sore throat cardiovascular denies any chest pains respiratory no shortness of breath GI complain of left lower quadrant pains radiating to the back and then migrating to the right side. History of nausea and vomiting. Hematology lymph adenopathy and no easy bruisability or lymph node enlargement. Neurologic no seizures are balance problems skin no skin rash musculoskeletal denies any joint pains rest of the systems are reviewed and negative Physical Exam Vital Signs: Temp Pulse Resp BP Pulse Ox 97.9 F 72 16 106/50 L 97 03/01/17 07:38 03/01/17 07:38 03/01/17 07:38 03/01/17 07:38 03/01/17 07:38 Intake & Output 02/28/17 03/01/17 03/02/17 06:59 06:59 06:59 Intake Total 1540 Balance 1540 Weight 65.8 kg Exam: HEENT normocephalic, no neck adenopathy, neck is supple, no adenopathy. Pulmonary no wheezing good breath sounds bilaterally Cardiovascular regular sinus rhythm. Abdominal G Abdomen is soft with tenderness in the left lower quadrant. Next Extremities no edema. Results Laboratory Results: 03/01/17 06:15 03/01/17 09:13 03/01/17 03/01/17 03/01/17 06:15 06:15 06:15 WBC RBC Hgb Hct MCV MCH MCHC RDW Plt Count Seg Neutrophils % Lymphocytes % Monocytes % Eosinophils % Basophils % Absolute Neutrophils Absolute Lymphocytes Absolute Monocytes Absolute Eosinophils Absolute Basophils Sodium 140.3 Potassium 3.3 L D Chloride 109 H Carbon Dioxide 22 Anion Gap 9 BUN 9 Creatinine 0.50 L Est GFR ( Amer) > 60 Est GFR (Non-Af Amer) > 60 Glucose 269 H Calcium 8.1 L Magnesium 1.8 TSH 10.90 H 03/01/17 03/01/17 06:15 09:13 WBC 5.6 RBC 3.55 L Hgb 10.6 L D Hct 31.4 L MCV 89 MCH 29.8 MCHC 33.6 RDW 13.3 Plt Count 152 Seg Neutrophils % 45.5 Lymphocytes % 38.5 Monocytes % 11.2 Eosinophils % 3.7 Basophils % 1.1 Absolute Neutrophils 2.5 Absolute Lymphocytes 2.2 Absolute Monocytes 0.6 Absolute Eosinophils 0.2 Absolute Basophils 0.1 Sodium 138.3 Potassium 3.2 L Chloride 107 Carbon Dioxide 23 Anion Gap 8 BUN 8 Creatinine 0.52 Est GFR ( Amer) > 60 Est GFR (Non-Af Amer) > 60 Glucose 270 H Calcium 7.9 L Magnesium TSH Impressions: Abdomen/Pelvis CT 02/28/17 21:35 IMPRESSION: There is gas present in the collecting system of the bladder, left kidney and proximal ureter with mild adjacent fat stranding in the left pararenal space, this appearance is concerning for infection, correlate for history of recent urologic instrumentation. Multiple left renal parenchymal stones. No hydronephrosis or hydroureter.There is similar left upper retroperitoneal retroperitoneal adenopathy. 4.1 cm cystic lesion in the tail of the pancreas, slightly bigger than the prior exam where it measured 3.6 cm in greatest dimension. 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 She would need a GI/pancreatic surgeon to make sure there is no malignancy in the cyst. (4) Retroperitoneal lymphadenopathy Is this a current diagnosis for this admission?: Yes Plan: The same follow-up at a tertiary hospital. Will need further study which may include MRI. - Time Time Spent: 30 to 50 Minutes
[2017-03-01] MEDS ORDERED: ATORVASTATIN CALCIUM 80 MG TABLET PO SCH (22:00)
[2017-03-02] MEDS: PIPERACILLIN SODIUM/TAZOBACTAM 3.375 GM in DEXTROSE 5%-WATER 100 ML IV SCH ×3 (00:36→12:20)
[2017-03-02 05:09] LABS: ABSOLUTE BASOPHILS # (AUTO) 0.1 10^3/uL (0.0-0.2); ABSOLUTE EOSINOPHILS # (AUTO) 0.1 10^3/uL (0.0-0.6); ABSOLUTE LYMPHOCYTES (AUTO) 2.2 10^3/uL (0.5-4.7); ABSOLUTE MONOCYTES (AUTO) 0.5 10^3/uL (0.1-1.4); ABSOLUTE NEUT (AUTO) 2.8 10^3/uL (1.7-8.2); BASOPHILS % (AUTO) 1.2 % (0-2); EOSINOPHILS % (AUTO) 2.5 % (0-6); HEMOGLOBIN 12.5 g/dL (12.0-15.5); HGB HCT DIFFERENCE -0.5; LYMPHOCYTES % (AUTO) 38.3 % (13-45); MEAN CORPUSCULAR HEMOGLOBIN 29.2 pg (27.0-33.4); MEAN CORPUSCULAR VOLUME 89 fl (80-97); MONOCYTES % (AUTO) 8.7 % (3-13); RED BLOOD COUNT 4.29 10^6/uL (3.72-5.28); RED CELL DISTRIBUTION WIDTH 13.7 % (11.5-14.0); SEGMENTED NEUTROPHILS % (AUTO) 49.3 % (42-78); WHITE BLOOD COUNT 5.8 10^3/uL (4.0-10.5)
[2017-03-02 05:32] LABS: ANION GAP 10 (5-19); BLOOD UREA NITROGEN 9 mg/dL (7-20); CALCIUM 8.7 mg/dL (8.4-10.2); CARBON DIOXIDE 23 mmol/L (22-30); CHLORIDE 105 mmol/L (98-107); CREATININE RESULT 0.63 mg/dL (0.52-1.25); GLUCOSE 266 mg/dL (75-110); POTASSIUM 4.1 mmol/L (3.6-5.0); SODIUM 137.6 mmol/L (137-145)
[2017-03-02] MEDS ORDERED: LEVOTHYROXINE SODIUM 0.075 MG TABLET PO SCH (08:00)
[2017-03-02] MEDS: INSULIN LISPRO 100 UNIT/ML 3 ML VIAL SUBCUT PRN ×2 (08:14→12:34)
[2017-03-02] MEDS: ENOXAPARIN SODIUM INJ 40 MG/0.4 ML DISP.SYRIN SUBCUT SCH (09:42)
[2017-03-02] MEDS: INSULIN GLARGINE,HUM.REC.ANLOG 300 UNIT/3 ML INSULN.PEN SUBCUT SCH (09:42)
[2017-03-02] MEDS: POTASSIUM CHLORIDE 10 MEQ TABLET.SA PO SCH (09:43)
[2017-03-02] MEDS: FAMOTIDINE INJ/PF 20 MG/2 ML SDV IV SCH (09:43)
[2017-03-02] MEDS ORDERED: ASPIRIN 81 MG TABLET, ENT COATED PO SCH (10:00)
--- NOTE | 2017-03-02 11:42 | PDOC DISCHARGE SUMMARY ---
General - Admit/Disc Date/PCP Admission Date/Primary Care Provider: 03/01/17 05:34 Discharge Date: 03/02/17 - Discharge Diagnosis (1) Pyelonephritis Is this a current diagnosis for this admission?: Yes Summary: Growing out E. coli from her culture. She will complete a course of Ceftin orally. (2) Diabetes mellitus type 2, uncontrolled Is this a current diagnosis for this admission?: Yes (3) History of CVA (cerebrovascular accident) Is this a current diagnosis for this admission?: Yes (4) Pancreatic cyst Is this a current diagnosis for this admission?: Yes (5) Retroperitoneal lymphadenopathy Is this a current diagnosis for this admission?: Yes Summary: This most likely is related to her underlying pyelonephritis. She will need follow-up for this in the next 3 months. Patient is aware to discuss this with her primary care physician. - Additional Information Resuscitation Status: Full Code Discharge Diet: Cardiac, Diabetic Discharge Activity: Activity As Tolerated Home Medications: Aspirin [Ecotrin 81 mg EC Tablet] 81 mg PO DAILY 03/01/17 Atorvastatin Calcium [Lipitor 80 mg Tablet] 80 mg PO QHS #30 tablet 03/02/17 Cefuroxime Axetil [Ceftin 500 mg Tablet] 1 tab PO BID #20 tablet 03/02/17 Levothyroxine Sodium [Synthroid 0.075 mg Tablet] 0.075 mg PO ACBRKFST #30 tablet 03/02/17 Metformin HCl [Glucophage 500 mg Tablet] 500 mg PO BID #60 tablet 03/02/17 Nicotine [Nicoderm 14 mg/24 Hr Transdermal Patch] 1 each TD DAILYP PRN patch.td24 03/02/17 History of Present Illness History of Present Illness: KAYLEY CALLOWAY is a 51 year old female with history of type 2 diabetes who presented with a one-week history nausea vomiting and left flank pain. Patient is found to have pyelonephritis and was admitted for IV antibiotics. Hospital Course Hospital Course: 51-year-old female who was admitted with pyelonephritis. The patient eventually grew out E. coli from her cultures. This was pansensitive. She is started on Ceftin orally. She has minimal pain now and no fevers or chills and is tolerating a diet. The patient was noted to have some air in the urinary tract most likely related to her infection. The patient also was noted to have retroperitoneal lymphadenopathy. The patient was evaluated by general surgery. Patient will need follow-up of this in the next 3 months to make certain that the lymphadenopathy has resolved. Patient has been informed of this and is aware that she needs to discuss this with her primary care physician. She does not have a primary care physician at this time however we will refer her for primary care. The patient's other medical problems including diabetes, hypothyroidism and previous CVA were unchanged during this hospitalization. Physical Exam Vital Signs: Temp Pulse Resp BP Pulse Ox 98.4 F 73 16 133/67 H 94 03/02/17 07:42 03/02/17 07:42 03/02/17 07:42 03/02/17 07:42 03/02/17 07:42 Intake & Output 03/01/17 03/02/17 03/03/17 06:59 06:59 06:59 Intake Total 1540 4354 Output Total 2625 Balance 1540 1729 General appearance: PRESENT: no acute distress Eye exam: PRESENT: conjunctiva pink. ABSENT: scleral icterus Ear exam: PRESENT: normal external ear exam Mouth exam: PRESENT: moist, tongue midline Neck exam: ABSENT: JVD Respiratory exam: PRESENT: clear to auscultation maribell. ABSENT: rales, rhonchi, wheezes Cardiovascular exam: PRESENT: RRR. ABSENT: diastolic murmur, rubs, systolic murmur GI/Abdominal exam: PRESENT: normal bowel sounds, soft. ABSENT: distended, guarding, mass, organolmegaly, rebound, tenderness Extremities exam: ABSENT: calf tenderness, clubbing, pedal edema Neurological exam: PRESENT: alert, awake, oriented to person, oriented to place , oriented to time, oriented to situation, CN II-XII grossly intact. ABSENT: motor sensory deficit Psychiatric exam: PRESENT: appropriate affect Skin exam: PRESENT: dry, intact, warm. ABSENT: cyanosis, rash Results Laboratory Results: 03/02/17 04:11 03/02/17 04:11 03/02/17 03/02/17 04:11 04:11 WBC 5.8 RBC 4.29 Hgb 12.5 Hct 38.0 MCV 89 MCH 29.2 MCHC 33.0 RDW 13.7 Plt Count 139 L Seg Neutrophils % 49.3 Lymphocytes % 38.3 Monocytes % 8.7 Eosinophils % 2.5 Basophils % 1.2 Absolute Neutrophils 2.8 Absolute Lymphocytes 2.2 Absolute Monocytes 0.5 Absolute Eosinophils 0.1 Absolute Basophils 0.1 Sodium 137.6 Potassium 4.1 Chloride 105 Carbon Dioxide 23 Anion Gap 10 BUN 9 Creatinine 0.63 Est GFR ( Amer) > 60 Est GFR (Non-Af Amer) > 60 Glucose 266 H Calcium 8.7 Impressions: Abdomen/Pelvis CT 02/28/17 21:35 IMPRESSION: There is gas present in the collecting system of the bladder, left kidney and proximal ureter with mild adjacent fat stranding in the left pararenal space, this appearance is concerning for infection, correlate for history of recent urologic instrumentation. Multiple left renal parenchymal stones. No hydronephrosis or hydroureter.There is similar left upper retroperitoneal retroperitoneal adenopathy. 4.1 cm cystic lesion in the tail of the pancreas, slightly bigger than the prior exam where it measured 3.6 cm in greatest dimension. Qualifiers PATEINT BEING DISCHARGED WITH ANY OF THE FOLLOWING DIAGNOSIS?: No Plan Discharge Plan: Patient is discharged to home. She will follow-up with her primary care physician in the next 2 weeks. She is aware that she will need follow-up of her retroperitoneal lymphadenopathy next several months with a repeat CT. Time Spent: Less than 30 Minutes
[2017-03-02 12:49] VITALS: BP 134/77
== END 2017-03-02 14:35 | disposition home or self-care (01) | DRG 690 ==
LOC: ER 18:15 → EH 03-01 01:29 → UNDOADMIN 03-01 01:29 → EH 03-01 04:55 → 3N 03-01 04:55 → EH 03-01 05:34 → 3N 03-01 05:34
PROVIDERS: ADMIT Family Medicine; ATTEND Family Medicine
DX: N12 Tubulo-interstitial nephritis, not specified as acute or chronic (principal); K86.2 Cyst of pancreas; B96.20 Unspecified Escherichia coli [E. coli] as the cause of diseases classified elsewhere; R59.1 Generalized enlarged lymph nodes; E03.9 Hypothyroidism, unspecified; K21.9 Gastro-esophageal reflux disease without esophagitis; E11.65 Type 2 diabetes mellitus with hyperglycemia; Z79.84 Long term (current) use of oral hypoglycemic drugs; Z79.82 Long term (current) use of aspirin; Z79.899 Other long term (current) drug therapy; Z86.73 Personal history of transient ischemic attack (TIA), and cerebral infarction without residual deficits; Z90.49 Acquired absence of other specified parts of digestive tract; F17.210 Nicotine dependence, cigarettes, uncomplicated; Z88.1 Allergy status to other antibiotic agents; Z88.2 Allergy status to sulfonamides
CPT/HCPCS: 36415; 74177; 80048; 80053; 81001; 82803; 82962; 83036; 83690; 83735; 83930; 84443; 85025; 87040; 87086; 87088; 87186; 96361; 96374; 99285; J0696; J1650; J1815; J2270; J2543; J3490; J7030; S0028; S0119

== ENCOUNTER 2017-03-05 14:24 | Emergency (ER) | payer OTHER ==
[2017-03-05] MEDS ORDERED: NORMAL SALINE 1000 ML 1,000 ML IV ONE ×2 (14:58→17:09)
[2017-03-05] MEDS ORDERED: ONDANSETRON HCL INJ/PF 4 MG/2 ML SDV IV ONE (14:59)
--- NOTE | 2017-03-05 14:59 | ER Document Report ---
ED Medical Screen (RME) - General Chief Complaint: Abdominal Pain >50 Stated Complaint: VOMITING Time Seen by Provider: 03/05/17 14:58 TRAVEL OUTSIDE OF THE [place] IN LAST 30 DAYS: No - HPI Notes: 03/05/17 15:04 Recent admission for pyelonephritis and discharged on Ceftin states still feels unwell. States unable to tolerate her p.o. antibiotics - Related Data Allergies/Adverse Reactions: levofloxacin [From Levaquin] Allergy (Verified 03/05/17 14:42) Sulfa (Sulfonamide Antibiotics) Allergy (Verified 03/05/17 14:42) Past Medical History - Past Medical History Cardiac Medical History: Reports: Hx Hypercholesterolemia Denies: Hx Atrial Fibrillation, Hx Congestive Heart Failure, Hx Coronary Artery Disease, Hx DVT, Hx Heart Attack, Hx Hypertension, Hx Pulmonary Embolism Pulmonary Medical History: Denies: Hx Asthma, Hx COPD, Hx Sleep Apnea Neurological Medical History: Reports: Hx Cerebrovascular Accident. Denies: Hx Seizures Endocrine Medical History: Reports: Hx Diabetes Mellitus Type 2, Hx Hypothyroidism - Postoperative; surgery for goiter. Denies: Hx Diabetes Mellitus Type 1, Hx Hyperthyroidism Renal/ Medical History: Reports: Hx Kidney Stones. Denies: Hx Peritoneal Dialysis GI Medical History: Reports: Hx Gastroesophageal Reflux Disease. Denies: Hx Cirrhosis, Hx Hepatitis Musculoskeltal Medical History: Denies Hx Arthritis Psychiatric Medical History: Denies: Hx Depression Infectious Medical History: Denies: Hx Hepatitis Past Surgical History: Reports: Hx Cholecystectomy, Hx Genitourinary Surgery - BLADDER LIFT, Hx Kidney (Renal Surgery) - left nephrostomy tube 2008, Other - Left nephrostomy tube, 2008, due to large stone; bladder tack - Immunizations Hx Diphtheria, Pertussis, Tetanus Vaccination: Yes Review of Systems - Review of Systems Gastrointestinal: Nausea, Vomiting Physical Exam - Vital signs Vitals: Temp Pulse Resp BP Pulse Ox 97.7 F 84 16 120/76 97 03/05/17 14:39 03/05/17 14:39 03/05/17 14:39 03/05/17 14:39 03/05/17 14:39 - Respiratory Respiratory status: No respiratory distress Chest status: Nontender Breath sounds: Normal Chest palpation: Normal Course - Vital Signs Vital signs: Temp Pulse Resp BP Pulse Ox 97.7 F 84 16 120/76 97 03/05/17 14:39 03/05/17 14:39 03/05/17 14:54 03/05/17 14:39 03/05/17 14:39
[2017-03-05 15:57] LABS: ABSOLUTE BASOPHILS # (AUTO) 0.1 10^3/uL (0.0-0.2); ABSOLUTE EOSINOPHILS # (AUTO) 0.2 10^3/uL (0.0-0.6); ABSOLUTE LYMPHOCYTES (AUTO) 3.1 10^3/uL (0.5-4.7); ABSOLUTE MONOCYTES (AUTO) 0.6 10^3/uL (0.1-1.4); ABSOLUTE NEUT (AUTO) 5.6 10^3/uL (1.7-8.2); BASOPHILS % (AUTO) 0.8 % (0-2); EOSINOPHILS % (AUTO) 1.9 % (0-6); HEMATOCRIT 41.9 % (36.0-47.0); HEMOGLOBIN 14.2 g/dL (12.0-15.5); HGB HCT DIFFERENCE 0.7; LYMPHOCYTES % (AUTO) 32.1 % (13-45); MEAN CORPUSCULAR HEMOGLOBIN 29.5 pg (27.0-33.4); MEAN CORPUSCULAR HGB CONC 33.8 g/dL (32.0-36.0); MEAN CORPUSCULAR VOLUME 87 fl (80-97); MONOCYTES % (AUTO) 6.7 % (3-13); RED BLOOD COUNT 4.79 10^6/uL (3.72-5.28); RED CELL DISTRIBUTION WIDTH 13.4 % (11.5-14.0); SEGMENTED NEUTROPHILS % (AUTO) 58.5 % (42-78); WHITE BLOOD COUNT 9.6 10^3/uL (4.0-10.5)
[2017-03-05 16:12] LABS: APPEARANCE,URINE CLEAR; BILIRUBIN,URINE NEGATIVE (NEGATIVE); GLUCOSE, URINE >=500 mg/dL (NEGATIVE); KETONES,URINE NEGATIVE (NEGATIVE); LEUKOCYTE ESTERASE,URINE TRACE (NEGATIVE); NITRITE,URINE NEGATIVE (NEGATIVE); PROTEIN,URINE NEGATIVE (NEGATIVE); URINE SPECIFIC GRAVITY 1.033; UROBILINOGEN,URINE NEGATIVE mg/dL (<2.0)
[2017-03-05 16:15] LABS: ALANINE AMINOTRANSFERASE 62 U/L (9-52); ALBUMIN 4.2 g/dL (3.5-5.0); ALKALINE PHOSPHATASE 296 U/L (38-126); ANION GAP 15 (5-19); ASPARTATE AMINO TRANSFERASE 36 U/L (14-36); BILIRUBIN,DIRECT 0.4 mg/dL (0.0-0.4); BILIRUBIN,TOTAL 0.6 mg/dL (0.2-1.3); BLOOD UREA NITROGEN 10 mg/dL (7-20); CALCIUM 10.2 mg/dL (8.4-10.2); CARBON DIOXIDE 24 mmol/L (22-30); CHLORIDE 99 mmol/L (98-107); CREATININE RESULT 0.59 mg/dL (0.52-1.25); GLUCOSE 391 mg/dL (75-110); LIPASE 199.4 U/L (23-300); POTASSIUM 4.4 mmol/L (3.6-5.0); SODIUM 138.3 mmol/L (137-145); TOTAL PROTEIN 7.1 g/dL (6.3-8.2)
--- NOTE | 2017-03-05 16:33 | ER Document Report ---
ED General - General Chief Complaint: Abdominal Pain >50 Stated Complaint: VOMITING Time Seen by Provider: 03/05/17 14:58 Mode of Arrival: Ambulatory Information source: Patient TRAVEL OUTSIDE OF THE [place] IN LAST 30 DAYS: No - HPI Onset: Other - 3 DAYS Onset/Duration: Gradual Quality of pain: Dull Severity: Mild Associated symptoms: Chills, Nausea, Vomiting Exacerbated by: Food Relieved by: Denies Similar symptoms previously: Yes - ADMITTED W/ SIMILAR 03/01 Recently seen / treated by doctor: Yes - D/C 03/02, WAS FEELING BETTER, WORSENED NEXT DAY. - Related Data Allergies/Adverse Reactions: levofloxacin [From Levaquin] Allergy (Verified 03/05/17 14:42) Sulfa (Sulfonamide Antibiotics) Allergy (Verified 03/05/17 14:42) Past Medical History - Social History Smoking Status: Current Every Day Smoker Chew tobacco use (# tins/day): No Frequency of alcohol use: None Drug Abuse: None Lives with: Spouse/Significant other Family History: Reviewed & Not Pertinent Patient has suicidal ideation: No Patient has homicidal ideation: No - Past Medical History Cardiac Medical History: Reports: Hx Hypercholesterolemia Denies: Hx Atrial Fibrillation, Hx Congestive Heart Failure, Hx Coronary Artery Disease, Hx DVT, Hx Heart Attack, Hx Hypertension, Hx Pulmonary Embolism Pulmonary Medical History: Denies: Hx Asthma, Hx COPD, Hx Sleep Apnea Neurological Medical History: Reports: Hx Cerebrovascular Accident. Denies: Hx Seizures Endocrine Medical History: Reports: Hx Diabetes Mellitus Type 2, Hx Hypothyroidism - Postoperative; surgery for goiter. Denies: Hx Diabetes Mellitus Type 1, Hx Hyperthyroidism Renal/ Medical History: Reports: Hx Kidney Stones. Denies: Hx Peritoneal Dialysis GI Medical History: Reports: Hx Gastroesophageal Reflux Disease. Denies: Hx Cirrhosis, Hx Hepatitis Musculoskeltal Medical History: Denies Hx Arthritis Psychiatric Medical History: Denies: Hx Depression Infectious Medical History: Denies: Hx Hepatitis Past Surgical History: Reports: Hx Cholecystectomy, Hx Genitourinary Surgery - BLADDER LIFT, Hx Kidney (Renal Surgery) - left nephrostomy tube 2008, Other - Left nephrostomy tube, 2008, due to large stone; bladder tack - Immunizations Hx Diphtheria, Pertussis, Tetanus Vaccination: Yes Hx Pneumococcal Vaccination: 09/18/16 Review of Systems - Review of Systems Constitutional: No symptoms reported EENT: No symptoms reported Cardiovascular: No symptoms reported Respiratory: No symptoms reported Gastrointestinal: See HPI Genitourinary: See HPI Musculoskeletal: No symptoms reported Skin: No symptoms reported Neurological/Psychological: No symptoms reported Physical Exam - Vital signs Vitals: Temp Pulse Resp BP Pulse Ox 97.7 F 84 16 120/76 97 03/05/17 14:39 03/05/17 14:39 03/05/17 14:39 03/05/17 14:39 03/05/17 14:39 Interpretation: Normal. No: Tachycardic, Tachypneic, Febrile - General General appearance: Appears well, Alert In distress: None - HEENT Head: Normocephalic Eyes: Other - STRABISMUS, CHRONIC. No: Normal Conjunctiva: Normal Ears: Normal Nasal: Normal Mouth/Lips: Normal Mucous membranes: Dry - MILDLY Pharynx: Normal Neck: Normal - Respiratory Respiratory status: No respiratory distress - Cardiovascular Rhythm: Regular - Abdominal Inspection: Normal Distension: No distension Tenderness: Tender - MILDLY, LEFT - Back Back: Normal, CVA tenderness - LEFT - Extremities General upper extremity: Normal inspection General lower extremity: Normal inspection - Neurological Neuro grossly intact: Yes Cognition: Normal Orientation: AAOx4 - Psychological Associated symptoms: Normal affect, Normal mood - Skin Skin Temperature: Warm Skin Moisture: Dry Skin Color: Normal Skin Turgor: Elastic Course - Re-evaluation Re-evalutation: 03/05/17 19:43 Patient states she is somewhat improved, wants to go home. Results of laboratory evaluation discussed. Treatment plan discussed. - Vital Signs Vital signs: Temp Pulse Resp BP Pulse Ox 97.7 F 84 16 120/76 97 03/05/17 14:39 03/05/17 14:39 03/05/17 14:54 03/05/17 14:39 03/05/17 14:39 - Laboratory Result Diagrams: 03/05/17 15:15 03/05/17 15:15 Laboratory results interpreted by me: 03/05/17 03/05/17 03/05/17 15:15 15:15 18:05 Glucose 391 H POC Glucose 240 H ALT 62 H Alkaline Phosphatase 296 H Urine Glucose (UA) >=500 H Ur Leukocyte Esterase TRACE H 03/05/17 19:17 Glucose POC Glucose 215 H ALT Alkaline Phosphatase Urine Glucose (UA) Ur Leukocyte Esterase - Consults DR. BUSTEED Time consulted: 16:00 Reason for consultation: 03/05/17 19:43 Suggests IV rehydration, glucose control, nausea control, IV antibx, and at- home management if patient is agreeable. 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 YOU MAY TAKE ZOFRAN IF NEEDED FOR NAUSEA CONTROL. RESUME TAKING CEFTIN TOMORROW (TUESDAY). CONTINUE ALL OTHER MEDS USUAL. FOLLOW UP WITH YOUR PRIMARY CARE PROVIDER OR RETURN TO E.R. IF PROBLEMS. Prescriptions: Ondansetron [Zofran Odt 4 mg Tablet] 1 - 2 tab PO Q4H #10 tab.gina
[2017-03-05] MEDS ORDERED: INSULIN REG, HUMAN 100 UNIT/ML 3 ML VIAL (PYX) IV ONE (16:44)
[2017-03-05] MEDS ORDERED: CEFTRIAXONE 2 GM/D5W RTU 2 GM/50 ML RTUPB IV ONE (16:48)
[2017-03-05] MEDS ORDERED: HYDROMORPHONE HCL INJ/PF 2 MG/ML AMPULE IV ONE (18:01)
[2017-03-05 20:03] VITALS: BP 123/58
== END 2017-03-05 20:11 | disposition home or self-care (01) ==
LOC: ER 14:24
DX: E86.0 Dehydration (principal); R11.2 Nausea with vomiting, unspecified; E11.65 Type 2 diabetes mellitus with hyperglycemia; N10 Acute pyelonephritis; R68.83 Chills (without fever); F17.200 Nicotine dependence, unspecified, uncomplicated; E78.00 Pure hypercholesterolemia, unspecified; Z86.73 Personal history of transient ischemic attack (TIA), and cerebral infarction without residual deficits; Z88.2 Allergy status to sulfonamides; Z87.442 Personal history of urinary calculi
CPT/HCPCS: 99284; 96361; 96375; 96365; 36415; 82962; 83690; 85025; 80053; 81001; J1170; J1815; J2405; J7030; J0696

== ENCOUNTER 2017-03-23 12:55 | Inpatient (IN) | payer OTHER ==
[2017-03-23] MEDS ORDERED: NORMAL SALINE 1000 ML 1,000 ML with POTASSIUM CHLORIDE 10 MEQ IV PRN ×2 (13:26)
[2017-03-23] MEDS ORDERED: GLUCAGON,HUMAN RECOMB 1 MG INJ IM PRN ×2 (13:28→16:03)
[2017-03-23] MEDS ORDERED: DEXTROSE 50%-WATER SYRINGE 12.5 GM/25 ML DOSE IV PRN ×2 (13:28→16:03)
[2017-03-23] MEDS ORDERED: DEXTROSE 50%-WATER SYRINGE 25 GM/50 ML DOSE IV PRN ×2 (13:28→16:03)
[2017-03-23] MEDS ORDERED: DEXTROSE 40% GEL 15 GM TUBE PO PRN ×2 (13:28→16:03)
[2017-03-23] MEDS ORDERED: DEXTROSE 40% GEL 15 GM TUBE X 2 PO PRN ×2 (13:28→16:03)
[2017-03-23 14:26] LABS: ABSOLUTE BASOPHILS # (AUTO) 0.1 10^3/uL (0.0-0.2); ABSOLUTE EOSINOPHILS # (AUTO) 0.1 10^3/uL (0.0-0.6); ABSOLUTE LYMPHOCYTES (AUTO) 1.5 10^3/uL (0.5-4.7); ABSOLUTE MONOCYTES (AUTO) 0.6 10^3/uL (0.1-1.4); ABSOLUTE NEUT (AUTO) 5.3 10^3/uL (1.7-8.2); BASOPHILS % (AUTO) 1.4 % (0-2); EOSINOPHILS % (AUTO) 1.6 % (0-6); LYMPHOCYTES % (AUTO) 19.4 % (13-45); MEAN CORPUSCULAR HEMOGLOBIN 28.8 pg (27.0-33.4); MEAN CORPUSCULAR HGB CONC 33.4 g/dL (32.0-36.0); MEAN CORPUSCULAR VOLUME 86 fl (80-97); MONOCYTES % (AUTO) 8.3 % (3-13); RED BLOOD COUNT 4.18 10^6/uL (3.72-5.28); RED CELL DISTRIBUTION WIDTH 14.1 % (11.5-14.0); SEGMENTED NEUTROPHILS % (AUTO) 69.3 % (42-78); WHITE BLOOD COUNT 7.7 10^3/uL (4.0-10.5)
[2017-03-23] MEDS: NORMAL SALINE 1000 ML 1,000 ML IV PRN (14:44)
[2017-03-23] MEDS: ONDANSETRON HCL INJ/PF 4 MG/2 ML SDV IV PRN ×2 (14:44→19:02)
[2017-03-23 14:45] LABS: ALANINE AMINOTRANSFERASE 79 U/L (9-52); ALBUMIN 3.4 g/dL (3.5-5.0); ALKALINE PHOSPHATASE 213 U/L (38-126); ANION GAP 14 (5-19); ASPARTATE AMINO TRANSFERASE 20 U/L (14-36); BILIRUBIN,DIRECT 0.7 mg/dL (0.0-0.4); BILIRUBIN,TOTAL 1.3 mg/dL (0.2-1.3); BLOOD UREA NITROGEN 20 mg/dL (7-20); CALCIUM 8.9 mg/dL (8.4-10.2); CARBON DIOXIDE 21 mmol/L (22-30); CHLORIDE 104 mmol/L (98-107); CREATININE RESULT 0.82 mg/dL (0.52-1.25); GLUCOSE 186 mg/dL (75-110); LIPASE 23.1 U/L (23-300); POTASSIUM 3.5 mmol/L (3.6-5.0); SODIUM 139.2 mmol/L (137-145)
[2017-03-23 14:54] LABS: AMYLASE < 30 U/L (30-110)
[2017-03-23] MEDS: MORPHINE SULFATE 10 MG/ML INJ IV PRN (14:54)
[2017-03-23] MEDS ORDERED: INFLUENZA ADLT QUAD (36MOS+) 2017-18 VAC 0.5 ML SYR IM PRN (15:11)
[2017-03-23] MEDS ORDERED: INSULIN LISPRO 100 UNIT/ML 3 ML VIAL SUBCUT PRN (16:03)
[2017-03-23] MEDS: ERTAPENEM SODIUM 1 GM in NORMAL SALINE 50 ML IV SCH (16:10)
--- NOTE | 2017-03-23 19:05 | PDOC H&P ---
History of Present Illness Admission Date/PCP: 03/23/17 12:55 Patient complains of: Nausea, vomiting, abdominal pain History of Present Illness: KAYLEY CALLOWAY is a 51 year old female presented to the office earlier today as follow up management visit for Diabetes Mellitus but reported worsening abdominal pain, nausea and vomiting over preceding 5 days. She localized pain to LUQ and epigastric region radiating into her back. She related her pain at 10 +/10. She claimed that pain is similar to what led to her recent hospitalization at [facility]. She denied associated fever, hematuria, shortness of breath, or heartburn. She reported associated chills, poor appetite, intermittent nausea and vomiting that has been limiting her ability to eat or drink adequately over last 5 days. Her home accuchek have remained elevated in the range of 139-490mg/dL. Her last HgbA1c on 03/11/2017 was greater than 14. She admitted to missing doses of her medication due to nausea and vomiting. She reported episode of headache but no dizziness. Her morbidities include Diabetes mellitus, Hyperlipidemia, Old stroke, GERD, and Hypothyroidism. 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 Denies: Seizures Endocrine Medical History: Reports: Diabetes Mellitus Type 2, Hypothyroidism - Postoperative; surgery for goiter Denies: Diabetes Mellitus Type 1, Hyperthyroidism GI Medical History: Reports: Gastroesophageal Reflux Disease Denies: Cirrhosis, Hepatitis Musculoskeltal Medical History: Denies: Arthritis Psychiatric Medical History: Denies: Depression Past Surgical History Past Surgical History: Reports: Cholecystectomy, Other - Left nephrostomy tube, 2008, due to large stone; bladder tack Social History Smoking Status: Smoker,Current Status Unk Frequency of Alcohol Use: None Hx Recreational Drug Use: No Drugs: None Hx Prescription Drug Abuse: No Family History Family History: Reviewed & Not Pertinent Parental Family History Reviewed: Yes Children Family History Reviewed: Yes Sibling(s) Family History Reviewed.: Yes Medication/Allergy Home Medications: Aspirin [Aspirin EC] 81 mg PO DAILY 03/23/17 Atorvastatin Calcium [Lipitor 80 mg Tablet] 80 mg PO QHS 03/23/17 Levothyroxine Sodium [Synthroid 0.075 mg Tablet] 0.075 mg PO DAILY 03/23/17 Metformin HCl [Glucophage 500 mg Tablet] 500 mg PO BIDBS 03/23/17 Allergies/Adverse Reactions: levofloxacin [From Levaquin] Allergy (Verified 03/05/17 14:42) Sulfa (Sulfonamide Antibiotics) Allergy (Verified 03/05/17 14:42) Review of Systems Constitutional: PRESENT: chills. ABSENT: as per HPI, anorexia, fatigue, fever(s ), headache(s), night sweats, weakness, weight gain, weight loss, other Eyes: ABSENT: visual disturbances Ears: ABSENT: hearing changes Nose, Mouth, and Throat: PRESENT: headache(s). ABSENT: as per HPI, mouth pain, sore throat, vertigo, other Cardiovascular: ABSENT: chest pain, dyspnea on exertion, edema, orthropnea, palpitations Respiratory: ABSENT: cough, hemoptysis Gastrointestinal: PRESENT: abdominal pain, nausea, vomiting. ABSENT: as per HPI , bloating, coffee ground emesis, constipation, diarrhea, dysphagia, heartburn, hematemesis, hematochezia, melena, other Genitourinary: ABSENT: difficulty urinating, dysuria, hematuria, nocturia Musculoskeletal: ABSENT: joint swelling Integumentary: ABSENT: rash, wounds Neurological: ABSENT: abnormal gait, abnormal speech, confusion, dizziness, focal weakness, syncope Psychiatric: ABSENT: anxiety, depression, homidical ideation, suicidal ideation Endocrine: ABSENT: cold intolerance, heat intolerance, menstrual abnormalities, polydipsia, polyuria Hematologic/Lymphatic: ABSENT: easy bleeding, easy bruising, lymphadenopathy Physical Exam Vital Signs: Temp Pulse Resp BP Pulse Ox 98.0 F 90 18 102/59 L 96 03/23/17 15:34 03/23/17 15:34 03/23/17 15:34 03/23/17 15:34 03/23/17 15:34 Intake & Output 03/22/17 03/23/17 03/24/17 06:59 06:59 06:59 Weight 62.766 kg General appearance: PRESENT: mild distress - due to expressed abdominal pain Head exam: PRESENT: atraumatic, normocephalic Eye exam: PRESENT: conjunctiva pink, EOMI, PERRLA. ABSENT: scleral icterus Ear exam: PRESENT: normal external ear exam Mouth exam: PRESENT: moist, tongue midline Teeth exam: ABSENT: dental caries, dental tenderness, edentulous, poor dentation , other Throat exam: ABSENT: post pharyngeal erythema, tonsillar erythema, tonsillar exudate, tonsillogmegaly, other Neck exam: PRESENT: full ROM. ABSENT: carotid bruit, JVD, lymphadenopathy, thyromegaly Respiratory exam: PRESENT: clear to auscultation maribell Cardiovascular exam: PRESENT: RRR. ABSENT: diastolic murmur, rubs, systolic murmur Pulses: PRESENT: normal dorsalis pedis pul, +2 pedal pulses bilateral Vascular exam: PRESENT: normal capillary refill. ABSENT: pallor GI/Abdominal exam: PRESENT: guarding - LUQ region, tenderness - Epigastric and LUQ regions. ABSENT: ascites, diminished bowel sounds, distended, firm, hernia , hyperactive bowel sounds, hypoactive bowel sounds, mass, Slater's sign, normal bowel sounds, organolmegaly, rebound, rigid, soft, other Rectal exam: PRESENT: deferred Extremities exam: ABSENT: calf tenderness, joint swelling, pedal edema Musculoskeletal exam: PRESENT: ambulatory, normal inspection Neurological exam: PRESENT: alert, awake, oriented to person, oriented to place , oriented to time, oriented to situation, CN II-XII grossly intact. ABSENT: motor sensory deficit Psychiatric exam: PRESENT: anxious - due to elicited tenderness and ongoing abdominal pain Skin exam: PRESENT: dry, intact, warm. ABSENT: cyanosis, rash Results Laboratory Results: 03/23/17 14:14 03/23/17 14:08 03/23/17 03/23/17 14:08 14:14 WBC 7.7 RBC 4.18 Hgb 12.0 Hct 36.0 MCV 86 MCH 28.8 MCHC 33.4 RDW 14.1 H Plt Count 109 L Seg Neutrophils % 69.3 Lymphocytes % 19.4 Monocytes % 8.3 Eosinophils % 1.6 Basophils % 1.4 Absolute Neutrophils 5.3 Absolute Lymphocytes 1.5 Absolute Monocytes 0.6 Absolute Eosinophils 0.1 Absolute Basophils 0.1 Sodium 139.2 Potassium 3.5 L Chloride 104 Carbon Dioxide 21 L Anion Gap 14 BUN 20 Creatinine 0.82 Est GFR ( Amer) > 60 Est GFR (Non-Af Amer) > 60 Glucose 186 H Calcium 8.9 Total Bilirubin 1.3 AST 20 ALT 79 H Alkaline Phosphatase 213 H Total Protein 6.0 L Albumin 3.4 L Amylase < 30 L Lipase 23.1 Assessment & Plan - Diagnosis (1) Nausea & vomiting Qualifiers: Vomiting type: unspecified Vomiting Intractability: unspecified Qualified Code(s): R11.2 - Nausea with vomiting, unspecified Is this a current diagnosis for this admission?: Yes Plan: See admitting attending physician orders (2) Abdominal pain, acute, left upper quadrant Is this a current diagnosis for this admission?: Yes Plan: See admitting attending physician orders (3) Abdominal pain, acute, epigastric Is this a current diagnosis for this admission?: Yes Plan: See admitting attending physician orders (4) Diabetes mellitus type 2, uncontrolled Qualifiers: Diabetes mellitus complication status: with unspecified complications Diabetes mellitus detention insulin use: without detention use Qualified Code( s): E11.8 - Type 2 diabetes mellitus with unspecified complications; E11.65 - Type 2 diabetes mellitus with hyperglycemia; E11.65 - Type 2 diabetes mellitus with hyperglycemia; E11.65 - Type 2 diabetes mellitus with hyperglycemia; E11.65 - Type 2 diabetes mellitus with hyperglycemia Is this a current diagnosis for this admission?: Yes Plan: See admitting attending physician orders (5) Pancreatic cyst Is this a current diagnosis for this admission?: Yes Plan: See admitting attending physician orders (6) Retroperitoneal lymphadenopathy Is this a current diagnosis for this admission?: Yes Plan: See admitting attending physician orders (7) Hyperlipidemia Qualifiers: Hyperlipidemia type: pure hypercholesterolemia Qualified Code(s): E78.00 - Pure hypercholesterolemia, unspecified; E78.0 - Pure hypercholesterolemia Is this a current diagnosis for this admission?: Yes Plan: See admitting attending physician orders (8) Hypothyroidism Qualifiers: Hypothyroidism type: unspecified Qualified Code(s): E03.9 - Hypothyroidism , unspecified Is this a current diagnosis for this admission?: Yes Plan: See admitting attending physician orders (9) GERD (gastroesophageal reflux disease) Qualifiers: Esophagitis presence: esophagitis presence not specified Qualified Code(s) : K21.9 - Gastro-esophageal reflux disease without esophagitis Is this a current diagnosis for this admission?: Yes Plan: See admitting attending physician orders (10) History of CVA (cerebrovascular accident) Is this a current diagnosis for this admission?: Yes Plan: See admitting attending physician orders - Time Time Spent: Greater than 70 Minutes Medications reviewed and adjusted accordingly: Yes Anticipated discharge: Home Within: Other - Inpatient Certification Based on my medical assessment, after consideration of the patient's comorbidities, presenting symptoms, or acuity I expect that the services needed warrant INPATIENT care.: Yes I certify that my determination is in accordance with my understanding of Medicare's requirements for reasonable and necessary INPATIENT services [42 CFR 412.3e].: Yes Medical Necessity: Need Close Monitoring Due to Risk of Patient Decompensation, Need For IV Fluids, Need For Continuous Telemetry Monitoring, Need for Pain Control, Need for IV Antibiotics, Risk of Complication if Not Cared For in Hospital Post Hospital Care: D/C Show Operations Supervisor Documentation - Plan Summary Plan Summary: See admitting attending physician orders
[2017-03-23 19:59] LABS: APPEARANCE,URINE SLIGHTLY-CLOUDY; BILIRUBIN,URINE NEGATIVE (NEGATIVE); GLUCOSE, URINE 150 mg/dL (NEGATIVE); KETONES,URINE 20 mg/dL (NEGATIVE); LEUKOCYTE ESTERASE,URINE SMALL (NEGATIVE); NITRITE,URINE POSITIVE (NEGATIVE); PROTEIN,URINE 100 mg/dL (NEGATIVE); URINE SPECIFIC GRAVITY 1.021
[2017-03-23] MEDS ORDERED: PANTOPRAZOLE SODIUM 40 MG VIAL IV ONE (20:00)
[2017-03-23] MEDS ORDERED: FAMOTIDINE INJ/PF 20 MG/2 ML SDV IV SCH (22:00)
[2017-03-23] MEDS: INSULIN LISPRO 100 UNIT/ML 3 ML VIAL SUBCUT PRN (22:21)
[2017-03-24] MEDS: MORPHINE SULFATE 10 MG/ML INJ IV PRN ×4 (00:31→22:49)
[2017-03-24] MEDS: NORMAL SALINE 1000 ML 1,000 ML IV PRN ×2 (03:28→23:13)
[2017-03-24] MEDS: PANTOPRAZOLE SODIUM 40 MG VIAL IV SCH ×2 (06:19→17:00)
[2017-03-24] MEDS: INSULIN LISPRO 100 UNIT/ML 3 ML VIAL SUBCUT PRN ×4 (08:03→22:49)
--- NOTE | 2017-03-24 08:20 | PDOC PROGRESS REPORT ---
Subjective Progress Note for:: 03/24/17 Subjective:: Patient reported improvement in nausea and vomiting so far today. There is low grade fever and her blood culture did grew gram negative rods with urinalysis suggestive of UTI with moderate hematuria. No abdominal pain. No chest pain or difficulty with breathing. Physical Exam Vital Signs: Temp Pulse Resp BP Pulse Ox 98.3 F 89 16 102/64 95 03/24/17 07:41 03/24/17 07:41 03/24/17 07:41 03/24/17 07:41 03/24/17 07:41 Intake & Output 03/23/17 03/24/17 03/25/17 06:59 06:59 06:59 Intake Total 2654 Output Total 600 Balance 2053 Weight 62.8 kg General appearance: PRESENT: no acute distress Head exam: PRESENT: atraumatic, normocephalic Eye exam: PRESENT: conjunctiva pink, EOMI, PERRLA. ABSENT: scleral icterus Mouth exam: PRESENT: moist Respiratory exam: PRESENT: clear to auscultation maribell Cardiovascular exam: PRESENT: RRR. ABSENT: diastolic murmur, rubs, systolic murmur GI/Abdominal exam: PRESENT: normal bowel sounds, soft, tenderness - LUQ and flank regiong tenderness.. ABSENT: distended, guarding, mass, organolmegaly, rebound Musculoskeletal exam: PRESENT: normal inspection Neurological exam: PRESENT: alert, awake, oriented to person, oriented to place , oriented to time, oriented to situation, CN II-XII grossly intact. ABSENT: motor sensory deficit Psychiatric exam: PRESENT: appropriate affect, normal mood. ABSENT: homicidal ideation, suicidal ideation Skin exam: PRESENT: dry, intact, warm. ABSENT: cyanosis, rash Results Laboratory Results: 03/23/17 14:14 03/23/17 14:08 03/23/17 03/23/17 03/23/17 14:08 14:14 18:15 WBC 7.7 RBC 4.18 Hgb 12.0 Hct 36.0 MCV 86 MCH 28.8 MCHC 33.4 RDW 14.1 H Plt Count 109 L Seg Neutrophils % 69.3 Lymphocytes % 19.4 Monocytes % 8.3 Eosinophils % 1.6 Basophils % 1.4 Absolute Neutrophils 5.3 Absolute Lymphocytes 1.5 Absolute Monocytes 0.6 Absolute Eosinophils 0.1 Absolute Basophils 0.1 Sodium 139.2 Potassium 3.5 L Chloride 104 Carbon Dioxide 21 L Anion Gap 14 BUN 20 Creatinine 0.82 Est GFR ( Amer) > 60 Est GFR (Non-Af Amer) > 60 Glucose 186 H Calcium 8.9 Total Bilirubin 1.3 AST 20 ALT 79 H Alkaline Phosphatase 213 H Total Protein 6.0 L Albumin 3.4 L Amylase < 30 L Lipase 23.1 Urine Color YELLOW Urine Appearance SLIGHTLY-CLOUDY Urine pH 5.0 Ur Specific [place] 1.021 Urine Protein 100 H Urine Glucose (UA) 150 H Urine Ketones 20 H Urine Blood MODERATE H Urine Nitrite POSITIVE H Ur Leukocyte Esterase SMALL H Urine WBC (Auto) 69 Urine RBC (Auto) 7 Assessment & Plan - Diagnosis (3) Nausea & vomiting Qualifiers: Vomiting type: unspecified Vomiting Intractability: unspecified Qualified Code(s): R11.2 - Nausea with vomiting, unspecified Is this a current diagnosis for this admission?: Yes (4) Abdominal pain, acute, left upper quadrant Is this a current diagnosis for this admission?: Yes (5) Abdominal pain, acute, epigastric Is this a current diagnosis for this admission?: Yes (6) Diabetes mellitus type 2, uncontrolled Qualifiers: Diabetes mellitus complication status: with unspecified complications Diabetes mellitus head of music insulin use: without longterm use Qualified Code( s): E11.8 - Type 2 diabetes mellitus with unspecified complications; E11.65 - Type 2 diabetes mellitus with hyperglycemia; E11.65 - Type 2 diabetes mellitus with hyperglycemia; E11.65 - Type 2 diabetes mellitus with hyperglycemia; E11.65 - Type 2 diabetes mellitus with hyperglycemia Is this a current diagnosis for this admission?: Yes (7) Pancreatic cyst Is this a current diagnosis for this admission?: Yes (8) Retroperitoneal lymphadenopathy Is this a current diagnosis for this admission?: Yes (9) Hyperlipidemia Qualifiers: Hyperlipidemia type: pure hypercholesterolemia Qualified Code(s): E78.00 - Pure hypercholesterolemia, unspecified; E78.0 - Pure hypercholesterolemia Is this a current diagnosis for this admission?: Yes (10) Hypothyroidism Qualifiers: Hypothyroidism type: unspecified Qualified Code(s): E03.9 - Hypothyroidism , unspecified Is this a current diagnosis for this admission?: Yes (11) GERD (gastroesophageal reflux disease) Qualifiers: Esophagitis presence: esophagitis presence not specified Qualified Code(s) : K21.9 - Gastro-esophageal reflux disease without esophagitis Is this a current diagnosis for this admission?: Yes (12) History of CVA (cerebrovascular accident) Is this a current diagnosis for this admission?: Yes - Time Time Spent with patient: 25-34 minutes Medications reviewed and adjusted accordingly: Yes Anticipated discharge: Home Within: Other - Inpatient Certification Based on my medical assessment, after consideration of the patient's comorbidities, presenting symptoms, or acuity I expect that the services needed warrant INPATIENT care.: Yes I certify that my determination is in accordance with my understanding of Medicare's requirements for reasonable and necessary INPATIENT services [42 CFR 412.3e].: Yes Medical Necessity: Need Close Monitoring Due to Risk of Patient Decompensation, Need For IV Fluids, Need For Continuous Telemetry Monitoring, Need for Pain Control, Need for IV Antibiotics, Risk of Complication if Not Cared For in Hospital Post Hospital Care: D/C Web Specialist Documentation - Plan Summary Plan Summary: Continue IV Invanz coverage. Follow up on blood and urine culture findings with organism identification adn sensitivity to adjust antibiotic as needed. Advance diet to mechanical soft with diabetic restrictions. Potassium replacement in progress. Repeat CBC with Diff and BMP in am.
[2017-03-24] MEDS: ENOXAPARIN SODIUM INJ 40 MG/0.4 ML DISP.SYRIN SUBCUT SCH (09:31)
--- NOTE | 2017-03-24 09:49 | RADIOLOGY REPORT (SQ) ---
EXAM DESCRIPTION: CT ABD/PELVIS NO ORAL OR IV COMPLETED DATE/TIME: 03/23/2017 7:36 pm REASON FOR STUDY: Abdominal pain w/pancreatic cyst/Retro Lymph nodes COMPARISON: CT abdomen pelvis 11/09/2016, 02/28/2017 TECHNIQUE: CT scan of the abdomen and pelvis performed without intravenous or oral contrast. Images reviewed with lung, soft tissue, and bone windows. Reconstructed coronal and sagittal MPR images revi ewed. All images stored on PACS. All CT scanners at this facility use dose modulation, iterative reconstruction, and/or weight based d osing when appropriate to reduce radiation dose to as low as reasonably achievable (ALARA). [facility]: Dose Right [facility]: CareDose [facility]: Dose Right [facility]: Teradose 4D [facility]: [employer] RADIATION DOSE: Up-to-date CT equipment and radiation dose reduction techniques were employed. CTDIv ol: 5.4 mGy. DLP: 299 mGy-cm.mGy. LIMITATIONS: None. FINDINGS: LOWER CHEST: No significant findings. No nodules or infiltrates. NON-CONTRASTED LIVER, SPLEEN, ADRENALS: Evaluation limited by lack of IV contrast. No identified sign ificant masses. PANCREAS: There is a 4.1 x 3.3 cm cyst at the tail of the pancreas, similar in size compared to 2016. Slight increase in size since 11/09/2016 (3.9 x 3.1 cm.) Cyst is water density without fluid fl uid levels, or gross septations. No surrounding inflammatory change in the fat at the splenic hilum or peripancreatic fat GALLBLADDER: Surgically absent RIGHT KIDNEY AND URETER: No suspicious masses. Assessment limited by lack of IV contrast. No signif icant calcifications. No hydronephrosis or hydroureter. LEFT KIDNEY AND URETER: There is air in the left renal pelvis and upper ureter similar compared to 04/2017. Small amount of air in the urinary bladder. Chronic appearing ectasia left upper pole jim rio. Multiple left lower pole intrarenal nonobstructive stones muscle 5 mm in size, 530 [place] u nits. No solid nodules. No gross left renal cysts. AORTA AND RETROPERITONEUM: No abdominal aortic aneurysm. A left retroaortic renal vein is present. On coronal images 36-41, and axial images is 30 through 46, multiple enlarged retroperitoneal lymph n odes are present on the left, stable in size compared to previous studies. Index lymph nodes are as follows: 1.9 x 1 cm axial image 30 2.3 x 1.3 cm axial image 36 1.1 x 1 cm axial image 46 BOWEL AND PERITONEAL CAVITY: No obvious masses or inflammatory changes. No free fluid. APPENDIX: Normal. PELVIS, BLADDER, AND ABDOMINAL WALL:No free pelvic fluid. No pelvic masses or adenopathy. Normal si ze postmenopausal female organs. Small amount of air in the urinary bladder of uncertain etiology. BONES: No significant findings. OTHER: No other significant finding. IMPRESSION: 4.1 x 3.3 cm pancreatic tail cyst, similar compared to CT exam 02/28/2017 Air in the urinary bladder and left upper pole intrarenal collecting system. Multiple left lower cristina e intrarenal nonobstructive stones. No left ureteral calculus. Stable ectasia left upper pole calic es. Left retroperitoneal adenopathy, unchanged from 02/28/2017, similar compared to 11/09/2016. COMMENT: Quality ID # [id number]: Final reports with documentation of one or more dose reduction techniques (e.g., Automated exposure control, adjustment of the mA and/or kV according to patient size, use of iterative reconstruction technique) TECHNICAL DOCUMENTATION: JOB ID: [id number] [employer]- All Rights Reserved
[2017-03-24] MEDS ORDERED: LEVOTHYROXINE SODIUM 0.075 MG TABLET PO SCH (10:00)
[2017-03-24] MEDS: ERTAPENEM SODIUM 1 GM in NORMAL SALINE 50 ML IV SCH (14:52)
[2017-03-25] MEDS: PANTOPRAZOLE SODIUM 40 MG VIAL IV SCH (05:46)
[2017-03-25] MEDS: LEVOTHYROXINE SODIUM 0.075 MG TABLET PO SCH (05:46)
[2017-03-25] MEDS: MORPHINE SULFATE 10 MG/ML INJ IV PRN (06:00)
[2017-03-25] MEDS: ENOXAPARIN SODIUM INJ 40 MG/0.4 ML DISP.SYRIN SUBCUT SCH (09:24)
[2017-03-25] MEDS: ERTAPENEM SODIUM 1 GM in NORMAL SALINE 50 ML IV SCH (14:50)
[2017-03-25] MEDS ORDERED: TRIMETHOBENZAMIDE HCL 300 MG CAPSULE PO PRN (15:54)
--- NOTE | 2017-03-25 16:05 | PDOC PROGRESS REPORT ---
Subjective Subjective:: Patient reported nausea but no vomiting today. No abdominal pain. No chest pain or difficulty with breathing. No fever or chills. Physical Exam Vital Signs: Temp Pulse Resp BP Pulse Ox 98.4 F 66 16 107/72 97 03/25/17 11:25 03/25/17 11:25 03/25/17 11:25 03/25/17 11:25 03/25/17 11:25 Intake & Output 03/24/17 03/25/17 03/26/17 06:59 06:59 06:59 Intake Total 2654 2912 Output Total 600 1100 Balance 2054 1812 Weight 62.8 kg 64.4 kg Physical Exam: General appearance: PRESENT: no acute distress Head exam: PRESENT: atraumatic, normocephalic Eye exam: PRESENT: conjunctiva pink, EOMI, PERRLA. ABSENT: scleral icterus Mouth exam: PRESENT: moist Respiratory exam: PRESENT: clear to auscultation maribell Cardiovascular exam: PRESENT: RRR. ABSENT: diastolic murmur, rubs, systolic murmur GI/Abdominal exam: PRESENT: normal bowel sounds, soft, expressed tenderness - LUQ and flank region tenderness.. ABSENT: distended, guarding, mass, organomegaly, rebound Musculoskeletal exam: PRESENT: normal inspection Neurological exam: PRESENT: alert, awake, oriented to person, oriented to place , oriented to time, oriented to situation, CN II-XII grossly intact. ABSENT: motor sensory deficit Psychiatric exam: PRESENT: appropriate affect, normal mood. ABSENT: homicidal ideation, suicidal ideation Skin exam: PRESENT: dry, intact, warm. ABSENT: cyanosis, rash Results Laboratory Results: 03/23/17 14:14 03/23/17 14:08 03/25/17 13:20 Stool Occult Blood NEGATIVE 03/23/17 18:15 Clean Catch Midstream Urine Culture - Final Yeast, Not Randi Albicans C.albicans/C.dubliniensis Impressions: Abdomen/Pelvis CT 03/23/17 00:00 IMPRESSION: 4.1 x 3.3 cm pancreatic tail cyst, similar compared to CT exam 02/28 Air in the urinary bladder and left upper pole intrarenal collecting system. Multiple left lower pole intrarenal nonobstructive stones. No left ureteral calculus. Stable ectasia left upper pole calices. Left retroperitoneal adenopathy, unchanged from 02/28/2017, similar compared to . Assessment & Plan - Diagnosis (3) Nausea & vomiting Qualifiers: Vomiting type: unspecified Vomiting Intractability: unspecified Qualified Code(s): R11.2 - Nausea with vomiting, unspecified Is this a current diagnosis for this admission?: Yes (4) Abdominal pain, acute, left upper quadrant Is this a current diagnosis for this admission?: Yes (5) Abdominal pain, acute, epigastric Is this a current diagnosis for this admission?: Yes (6) Diabetes mellitus type 2, uncontrolled Qualifiers: Diabetes mellitus complication status: with unspecified complications Diabetes mellitus skilled nursing insulin use: without assistant principal use Qualified Code( s): E11.8 - Type 2 diabetes mellitus with unspecified complications; E11.65 - Type 2 diabetes mellitus with hyperglycemia; E11.65 - Type 2 diabetes mellitus with hyperglycemia; E11.65 - Type 2 diabetes mellitus with hyperglycemia; E11.65 - Type 2 diabetes mellitus with hyperglycemia Is this a current diagnosis for this admission?: Yes (7) Pancreatic cyst Is this a current diagnosis for this admission?: Yes (8) Retroperitoneal lymphadenopathy Is this a current diagnosis for this admission?: Yes (9) Hyperlipidemia Qualifiers: Hyperlipidemia type: pure hypercholesterolemia Qualified Code(s): E78.00 - Pure hypercholesterolemia, unspecified; E78.0 - Pure hypercholesterolemia Is this a current diagnosis for this admission?: Yes (10) Hypothyroidism Qualifiers: Hypothyroidism type: unspecified Qualified Code(s): E03.9 - Hypothyroidism , unspecified Is this a current diagnosis for this admission?: Yes (11) GERD (gastroesophageal reflux disease) Qualifiers: Esophagitis presence: esophagitis presence not specified Qualified Code(s) : K21.9 - Gastro-esophageal reflux disease without esophagitis Is this a current diagnosis for this admission?: Yes (12) History of CVA (cerebrovascular accident) Is this a current diagnosis for this admission?: Yes - Time Time Spent with patient: 25-34 minutes Medications reviewed and adjusted accordingly: Yes Anticipated discharge: Home Within: Other - Inpatient Certification Based on my medical assessment, after consideration of the patient's comorbidities, presenting symptoms, or acuity I expect that the services needed warrant INPATIENT care.: Yes I certify that my determination is in accordance with my understanding of Medicare's requirements for reasonable and necessary INPATIENT services [42 CFR 412.3e].: Yes Medical Necessity: Need Close Monitoring Due to Risk of Patient Decompensation, Need For IV Fluids, Need For Continuous Telemetry Monitoring, Need for IV Antibiotics, Risk of Complication if Not Cared For in Hospital Post Hospital Care: D/C Sheet Metal Helper Documentation - Plan Summary Plan Summary: Continue IV Invanz. Start on Diflucan 100 mg po daily. D/C IV Protonix and Morphine. D/C Zofran. Start on Tigan 300mg p[o tidp for nausea or vomiting. Continue all other current medication management.
[2017-03-25] MEDS: LANSOPRAZOLE 30 MG TAB.RAP.DR PO SCH (16:45)
[2017-03-25] MEDS: TRAMADOL HCL 50 MG TABLET PO PRN ×2 (17:18→23:59)
[2017-03-25] MEDS: FLUCONAZOLE 100 MG TABLET PO SCH (17:18)
[2017-03-25] MEDS: NORMAL SALINE 1000 ML 1,000 ML IV PRN (22:15)
[2017-03-25] MEDS: INSULIN LISPRO 100 UNIT/ML 3 ML VIAL SUBCUT PRN (22:15)
[2017-03-26] MEDS ORDERED: TRIMETHOBENZAMIDE HCL 300 MG CAPSULE ONE (05:02)
[2017-03-26] MEDS: LANSOPRAZOLE 30 MG TAB.RAP.DR PO SCH (05:08)
[2017-03-26] MEDS: LEVOTHYROXINE SODIUM 0.075 MG TABLET PO SCH (05:08)
[2017-03-26] MEDS: NORMAL SALINE 1000 ML 1,000 ML IV PRN (08:25)
[2017-03-26] MEDS: ENOXAPARIN SODIUM INJ 40 MG/0.4 ML DISP.SYRIN SUBCUT SCH (09:08)
[2017-03-26] MEDS: INSULIN LISPRO 100 UNIT/ML 3 ML VIAL SUBCUT PRN (12:14)
[2017-03-26] MEDS: TRAMADOL HCL 50 MG TABLET PO PRN ×2 (13:31→23:33)
--- NOTE | 2017-03-26 14:06 | PDOC PROGRESS REPORT ---
Subjective Progress Note for:: 03/26/17 Subjective:: Patient reported nausea or vomiting. Tolerating oral feeding. Accuchek slightly elevated. No abdominal pain. No chest pain or difficulty with breathing. No fever or chills. Physical Exam Vital Signs: Temp Pulse Resp BP Pulse Ox 98.1 F 56 L 16 114/65 95 03/26/17 11:22 03/26/17 11:22 03/26/17 11:22 03/26/17 11:22 03/26/17 11:22 Intake & Output 03/25/17 03/26/17 03/27/17 06:59 06:59 06:59 Intake Total 2912 3960 Output Total 1100 2200 Balance 1812 1760 Weight 64.4 kg Physical Exam: General appearance: PRESENT: no acute distress Head exam: PRESENT: atraumatic, normocephalic Eye exam: PRESENT: conjunctiva pink, EOMI, PERRLA. ABSENT: scleral icterus Mouth exam: PRESENT: moist Respiratory exam: PRESENT: clear to auscultation maribell Cardiovascular exam: PRESENT: RRR. ABSENT: diastolic murmur, rubs, systolic murmur GI/Abdominal exam: PRESENT: normal bowel sounds, soft ABSENT: tenderness, distended, guarding, mass, organomegaly, rebound Musculoskeletal exam: PRESENT: normal inspection Neurological exam: PRESENT: alert, awake, oriented to person, oriented to place , oriented to time, oriented to situation, CN II-XII grossly intact. ABSENT: motor sensory deficit Psychiatric exam: PRESENT: appropriate affect, normal mood. ABSENT: homicidal ideation, suicidal ideation Skin exam: PRESENT: dry, intact, warm. ABSENT: cyanosis, rash Results Laboratory Results: 03/23/17 14:14 03/23/17 14:08 03/23/17 18:15 Clean Catch Midstream Urine Culture - Final Yeast, Not Randi Albicans C.albicans/C.dubliniensis Impressions: Abdomen/Pelvis CT 03/23/17 00:00 IMPRESSION: 4.1 x 3.3 cm pancreatic tail cyst, similar compared to CT exam 02/28 Air in the urinary bladder and left upper pole intrarenal collecting system. Multiple left lower pole intrarenal nonobstructive stones. No left ureteral calculus. Stable ectasia left upper pole calices. Left retroperitoneal adenopathy, unchanged from 02/28/2017, similar compared to . Assessment & Plan - Diagnosis (3) Nausea & vomiting Qualifiers: Vomiting type: unspecified Vomiting Intractability: unspecified Qualified Code(s): R11.2 - Nausea with vomiting, unspecified Is this a current diagnosis for this admission?: Yes (4) Abdominal pain, acute, left upper quadrant Is this a current diagnosis for this admission?: Yes (5) Abdominal pain, acute, epigastric Is this a current diagnosis for this admission?: Yes (6) Diabetes mellitus type 2, uncontrolled Qualifiers: Diabetes mellitus complication status: with unspecified complications Diabetes mellitus mcfp insulin use: without mcfp use Qualified Code( s): E11.8 - Type 2 diabetes mellitus with unspecified complications; E11.65 - Type 2 diabetes mellitus with hyperglycemia; E11.65 - Type 2 diabetes mellitus with hyperglycemia; E11.65 - Type 2 diabetes mellitus with hyperglycemia; E11.65 - Type 2 diabetes mellitus with hyperglycemia Is this a current diagnosis for this admission?: Yes (7) Pancreatic cyst Is this a current diagnosis for this admission?: Yes (8) Retroperitoneal lymphadenopathy Is this a current diagnosis for this admission?: Yes (9) Hyperlipidemia Qualifiers: Hyperlipidemia type: pure hypercholesterolemia Qualified Code(s): E78.00 - Pure hypercholesterolemia, unspecified; E78.0 - Pure hypercholesterolemia Is this a current diagnosis for this admission?: Yes (10) Hypothyroidism Qualifiers: Hypothyroidism type: unspecified Qualified Code(s): E03.9 - Hypothyroidism , unspecified Is this a current diagnosis for this admission?: Yes (11) GERD (gastroesophageal reflux disease) Qualifiers: Esophagitis presence: esophagitis presence not specified Qualified Code(s) : K21.9 - Gastro-esophageal reflux disease without esophagitis Is this a current diagnosis for this admission?: Yes (12) History of CVA (cerebrovascular accident) Is this a current diagnosis for this admission?: Yes - Time Time Spent with patient: 25-34 minutes Medications reviewed and adjusted accordingly: Yes Anticipated discharge: Home Within: Other - Inpatient Certification Based on my medical assessment, after consideration of the patient's comorbidities, presenting symptoms, or acuity I expect that the services needed warrant INPATIENT care.: Yes I certify that my determination is in accordance with my understanding of Medicare's requirements for reasonable and necessary INPATIENT services [42 CFR 412.3e].: Yes Medical Necessity: Need Close Monitoring Due to Risk of Patient Decompensation, Need For IV Fluids, Need For Continuous Telemetry Monitoring, Need for IV Antibiotics, Risk of Complication if Not Cared For in Hospital Post Hospital Care: D/C Bottom Cager Documentation - Plan Summary Plan Summary: See attending physician orders. Restart on preadmission home medications.
[2017-03-26] MEDS: METFORMIN HCL 500 MG TABLET PO SCH (17:17)
[2017-03-26] MEDS: FLUCONAZOLE 100 MG TABLET PO SCH (17:17)
[2017-03-26] MEDS: ERTAPENEM SODIUM 1 GM in NORMAL SALINE 50 ML IV SCH (17:18)
[2017-03-26] MEDS: ATORVASTATIN CALCIUM 80 MG TABLET PO SCH (22:07)
[2017-03-27] MEDS: LANSOPRAZOLE 30 MG TAB.RAP.DR PO SCH (06:17)
[2017-03-27] MEDS: LEVOTHYROXINE SODIUM 0.075 MG TABLET PO SCH (06:17)
[2017-03-27 07:08] LABS: ABSOLUTE EOSINOPHILS # (AUTO) 0.3 10^3/uL (0.0-0.6); ABSOLUTE LYMPHOCYTES (AUTO) 2.1 10^3/uL (0.5-4.7); ABSOLUTE MONOCYTES (AUTO) 0.6 10^3/uL (0.1-1.4); ABSOLUTE NEUT (AUTO) 2.9 10^3/uL (1.7-8.2); BASOPHILS % (AUTO) 0.8 % (0-2); HEMATOCRIT 32.8 % (36.0-47.0); HGB HCT DIFFERENCE 0.2; LYMPHOCYTES % (AUTO) 35.4 % (13-45); MEAN CORPUSCULAR HEMOGLOBIN 28.5 pg (27.0-33.4); MEAN CORPUSCULAR HGB CONC 33.5 g/dL (32.0-36.0); MEAN CORPUSCULAR VOLUME 85 fl (80-97); MONOCYTES % (AUTO) 10.2 % (3-13); RED BLOOD COUNT 3.85 10^6/uL (3.72-5.28); RED CELL DISTRIBUTION WIDTH 14.2 % (11.5-14.0); SEGMENTED NEUTROPHILS % (AUTO) 48.6 % (42-78)
[2017-03-27 07:27] LABS: ALANINE AMINOTRANSFERASE 56 U/L (9-52); ALBUMIN 2.8 g/dL (3.5-5.0); ALKALINE PHOSPHATASE 236 U/L (38-126); ANION GAP 11 (5-19); ASPARTATE AMINO TRANSFERASE 23 U/L (14-36); BILIRUBIN,DIRECT 0.4 mg/dL (0.0-0.4); BILIRUBIN,TOTAL 0.4 mg/dL (0.2-1.3); BLOOD UREA NITROGEN 10 mg/dL (7-20); CALCIUM 8.3 mg/dL (8.4-10.2); CARBON DIOXIDE 23 mmol/L (22-30); CHLORIDE 107 mmol/L (98-107); CREATININE RESULT 0.67 mg/dL (0.52-1.25); GLUCOSE 144 mg/dL (75-110); MAGNESIUM 1.6 mg/dL (1.6-2.3); POTASSIUM 3.6 mmol/L (3.6-5.0); SODIUM 141.3 mmol/L (137-145); TOTAL PROTEIN 5.4 g/dL (6.3-8.2)
[2017-03-27] MEDS: ENOXAPARIN SODIUM INJ 40 MG/0.4 ML DISP.SYRIN SUBCUT SCH (10:51)
[2017-03-27] MEDS: METFORMIN HCL 500 MG TABLET PO SCH ×2 (10:52→17:33)
[2017-03-27] MEDS: ASPIRIN 81 MG TABLET, ENT COATED PO SCH (10:52)
--- NOTE | 2017-03-27 11:45 | PDOC PROGRESS REPORT ---
Subjective Progress Note for:: 03/27/17 Subjective:: Patient continue to experience intermittent nausea but no vomiting or associated abdominal pain. No chest pain or difficulty with breathing. No fever or chills. Blood culture did grew E. coli sensitive to Invanz. She remain on oral Diflucan for [place] species in her urine culture.. Physical Exam Vital Signs: Temp Pulse Resp BP Pulse Ox 98.3 F 63 15 133/75 H 96 03/27/17 07:26 03/27/17 07:26 03/27/17 07:26 03/27/17 07:26 03/27/17 07:26 Intake & Output 03/26/17 03/27/17 03/28/17 06:59 06:59 06:59 Intake Total 3960 4699 Output Total 2200 4300 Balance 1760 399 Physical Exam: General appearance: PRESENT: no acute distress Head exam: PRESENT: atraumatic, normocephalic Eye exam: PRESENT: conjunctiva pink, EOMI, PERRLA. ABSENT: scleral icterus Mouth exam: PRESENT: moist Respiratory exam: PRESENT: clear to auscultation maribell Cardiovascular exam: PRESENT: RRR. ABSENT: diastolic murmur, rubs, systolic murmur GI/Abdominal exam: PRESENT: normal bowel sounds, soft ABSENT: tenderness, distended, guarding, mass, organomegaly, rebound Musculoskeletal exam: PRESENT: normal inspection Neurological exam: PRESENT: alert, awake, oriented to person, oriented to place , oriented to time, oriented to situation, CN II-XII grossly intact. ABSENT: motor sensory deficit Psychiatric exam: PRESENT: appropriate affect, normal mood. ABSENT: homicidal ideation, suicidal ideation Skin exam: PRESENT: dry, intact, warm. ABSENT: cyanosis, rash Results Laboratory Results: 03/27/17 06:42 03/27/17 06:42 03/26/17 03/27/17 03/27/17 23:07 06:42 06:42 WBC 6.0 RBC 3.85 Hgb 11.0 L Hct 32.8 L MCV 85 MCH 28.5 MCHC 33.5 RDW 14.2 H Plt Count 150 Seg Neutrophils % 48.6 Lymphocytes % 35.4 Monocytes % 10.2 Eosinophils % 5.0 Basophils % 0.8 Absolute Neutrophils 2.9 Absolute Lymphocytes 2.1 Absolute Monocytes 0.6 Absolute Eosinophils 0.3 Absolute Basophils 0.0 Sodium 141.3 Potassium 3.6 Chloride 107 Carbon Dioxide 23 Anion Gap 11 BUN 10 Creatinine 0.67 Est GFR ( Amer) > 60 Est GFR (Non-Af Amer) > 60 Glucose 144 H Calcium 8.3 L Magnesium 1.6 Total Bilirubin 0.4 AST 23 ALT 56 H Alkaline Phosphatase 236 H Total Protein 5.4 L Albumin 2.8 L Stool Occult Blood NEGATIVE 03/23/17 14:08 Blood Blood Culture - Final Escherichia Coli 03/23/17 14:14 Blood Blood Culture - Final Escherichia Coli Impressions: Abdomen/Pelvis CT 03/23/17 00:00 IMPRESSION: 4.1 x 3.3 cm pancreatic tail cyst, similar compared to CT exam 02/28 Air in the urinary bladder and left upper pole intrarenal collecting system. Multiple left lower pole intrarenal nonobstructive stones. No left ureteral calculus. Stable ectasia left upper pole calices. Left retroperitoneal adenopathy, unchanged from 02/28/2017, similar compared to . Assessment & Plan - Diagnosis (3) Nausea & vomiting Qualifiers: Vomiting type: unspecified Vomiting Intractability: unspecified Qualified Code(s): R11.2 - Nausea with vomiting, unspecified Is this a current diagnosis for this admission?: Yes (4) Abdominal pain, acute, left upper quadrant Is this a current diagnosis for this admission?: Yes (5) Abdominal pain, acute, epigastric Is this a current diagnosis for this admission?: Yes (6) Diabetes mellitus type 2, uncontrolled Qualifiers: Diabetes mellitus complication status: with unspecified complications Diabetes mellitus mcfp insulin use: without mcfp use Qualified Code( s): E11.8 - Type 2 diabetes mellitus with unspecified complications; E11.65 - Type 2 diabetes mellitus with hyperglycemia; E11.65 - Type 2 diabetes mellitus with hyperglycemia; E11.65 - Type 2 diabetes mellitus with hyperglycemia; E11.65 - Type 2 diabetes mellitus with hyperglycemia Is this a current diagnosis for this admission?: Yes (7) Pancreatic cyst Is this a current diagnosis for this admission?: Yes (8) Retroperitoneal lymphadenopathy Is this a current diagnosis for this admission?: Yes (9) Hyperlipidemia Qualifiers: Hyperlipidemia type: pure hypercholesterolemia Qualified Code(s): E78.00 - Pure hypercholesterolemia, unspecified; E78.0 - Pure hypercholesterolemia Is this a current diagnosis for this admission?: Yes (10) Hypothyroidism Qualifiers: Hypothyroidism type: unspecified Qualified Code(s): E03.9 - Hypothyroidism , unspecified Is this a current diagnosis for this admission?: Yes (11) GERD (gastroesophageal reflux disease) Qualifiers: Esophagitis presence: esophagitis presence not specified Qualified Code(s) : K21.9 - Gastro-esophageal reflux disease without esophagitis Is this a current diagnosis for this admission?: Yes (12) History of CVA (cerebrovascular accident) Is this a current diagnosis for this admission?: Yes - Time Time Spent with patient: 25-34 minutes Medications reviewed and adjusted accordingly: Yes Anticipated discharge: Home Within: Other - Inpatient Certification Based on my medical assessment, after consideration of the patient's comorbidities, presenting symptoms, or acuity I expect that the services needed warrant INPATIENT care.: Yes I certify that my determination is in accordance with my understanding of Medicare's requirements for reasonable and necessary INPATIENT services [42 CFR 412.3e].: Yes Medical Necessity: Need Close Monitoring Due to Risk of Patient Decompensation, Need For IV Fluids, Need For Continuous Telemetry Monitoring, Need for IV Antibiotics, Risk of Complication if Not Cared For in Hospital Post Hospital Care: D/C Body Art Technician Documentation - Plan Summary Plan Summary: Continue current medication management. Obtain thyroid function panel in view of her elevate Alk. phos and ALT on Levothyroxine therapy.
[2017-03-27 14:15] LABS: FREE T3 3.07 pg/mL (2.77-5.27)
[2017-03-27 14:28] LABS: THYROID STIMULATING HORMONE 5.15 uIU/mL (0.47-4.68)
[2017-03-27] MEDS: ERTAPENEM SODIUM 1 GM in NORMAL SALINE 50 ML IV SCH (17:32)
[2017-03-27] MEDS: FLUCONAZOLE 100 MG TABLET PO SCH (17:33)
[2017-03-27] MEDS: ATORVASTATIN CALCIUM 80 MG TABLET PO SCH (21:38)
[2017-03-28] MEDS: NORMAL SALINE 1000 ML 1,000 ML IV PRN (03:21)
[2017-03-28] MEDS: TRAMADOL HCL 50 MG TABLET PO PRN (03:26)
[2017-03-28] MEDS: LANSOPRAZOLE 30 MG TAB.RAP.DR PO SCH (06:17)
[2017-03-28] MEDS: LEVOTHYROXINE SODIUM 0.075 MG TABLET PO SCH (06:17)
[2017-03-28] MEDS: ASPIRIN 81 MG TABLET, ENT COATED PO SCH (11:32)
[2017-03-28] MEDS: METFORMIN HCL 500 MG TABLET PO SCH ×2 (11:33→16:39)
[2017-03-28] MEDS: ENOXAPARIN SODIUM INJ 40 MG/0.4 ML DISP.SYRIN SUBCUT SCH (11:33)
--- NOTE | 2017-03-28 14:06 | PDOC PROGRESS REPORT ---
Subjective Subjective:: No nausea, vomiting or abdominal pain so far today. Tolerating oral feeding. No chest pain or difficulty with breathing. No fever or chills. Physical Exam Vital Signs: Temp Pulse Resp BP Pulse Ox 97.8 F 52 L 16 143/73 H 99 03/28/17 11:46 03/28/17 11:46 03/28/17 11:46 03/28/17 11:46 03/28/17 11:46 Intake & Output 03/27/17 03/28/17 03/29/17 06:59 06:59 06:59 Intake Total 4699 2930 Output Total 4300 1850 Balance 399 1080 Physical Exam: General appearance: PRESENT: no acute distress Head exam: PRESENT: atraumatic, normocephalic Eye exam: PRESENT: conjunctiva pink, EOMI, PERRLA. ABSENT: scleral icterus Mouth exam: PRESENT: moist Respiratory exam: PRESENT: clear to auscultation maribell Cardiovascular exam: PRESENT: RRR. ABSENT: diastolic murmur, rubs, systolic murmur GI/Abdominal exam: PRESENT: normal bowel sounds, soft ABSENT: tenderness, distended, guarding, mass, organomegaly, rebound Musculoskeletal exam: PRESENT: normal inspection Neurological exam: PRESENT: alert, awake, oriented to person, oriented to place , oriented to time, oriented to situation, CN II-XII grossly intact. ABSENT: motor sensory deficit Psychiatric exam: PRESENT: appropriate affect, normal mood. ABSENT: homicidal ideation, suicidal ideation Skin exam: PRESENT: dry, intact, warm. ABSENT: cyanosis, rash Results Laboratory Results: 03/27/17 06:42 03/27/17 06:42 03/27/17 06:42 TSH 5.15 H Free T4 1.28 Free T3 pg/mL 3.07 03/23/17 14:08 Blood Blood Culture - Final Escherichia Coli 03/23/17 14:14 Blood Blood Culture - Final Escherichia Coli Impressions: Abdomen/Pelvis CT 03/23/17 00:00 IMPRESSION: 4.1 x 3.3 cm pancreatic tail cyst, similar compared to CT exam 02/28 Air in the urinary bladder and left upper pole intrarenal collecting system. Multiple left lower pole intrarenal nonobstructive stones. No left ureteral calculus. Stable ectasia left upper pole calices. Left retroperitoneal adenopathy, unchanged from 02/28/2017, similar compared to . Assessment & Plan - Diagnosis (3) Nausea & vomiting Qualifiers: Vomiting type: unspecified Vomiting Intractability: unspecified Qualified Code(s): R11.2 - Nausea with vomiting, unspecified Is this a current diagnosis for this admission?: Yes (4) Abdominal pain, acute, left upper quadrant Is this a current diagnosis for this admission?: Yes (5) Abdominal pain, acute, epigastric Is this a current diagnosis for this admission?: Yes (6) Diabetes mellitus type 2, uncontrolled Qualifiers: Diabetes mellitus complication status: with unspecified complications Diabetes mellitus predatory animal exterminator insulin use: without [facility] use Qualified Code( s): E11.8 - Type 2 diabetes mellitus with unspecified complications; E11.65 - Type 2 diabetes mellitus with hyperglycemia; E11.65 - Type 2 diabetes mellitus with hyperglycemia; E11.65 - Type 2 diabetes mellitus with hyperglycemia; E11.65 - Type 2 diabetes mellitus with hyperglycemia Is this a current diagnosis for this admission?: Yes (7) Pancreatic cyst Is this a current diagnosis for this admission?: Yes (8) Retroperitoneal lymphadenopathy Is this a current diagnosis for this admission?: Yes (9) Hyperlipidemia Qualifiers: Hyperlipidemia type: pure hypercholesterolemia Qualified Code(s): E78.00 - Pure hypercholesterolemia, unspecified; E78.0 - Pure hypercholesterolemia Is this a current diagnosis for this admission?: Yes (10) Hypothyroidism Qualifiers: Hypothyroidism type: unspecified Qualified Code(s): E03.9 - Hypothyroidism , unspecified Is this a current diagnosis for this admission?: Yes (11) GERD (gastroesophageal reflux disease) Qualifiers: Esophagitis presence: esophagitis presence not specified Qualified Code(s) : K21.9 - Gastro-esophageal reflux disease without esophagitis Is this a current diagnosis for this admission?: Yes (12) History of CVA (cerebrovascular accident) Is this a current diagnosis for this admission?: Yes - Time Time Spent with patient: 25-34 minutes Medications reviewed and adjusted accordingly: Yes Anticipated discharge: Home Within: within 24 hours - Inpatient Certification Based on my medical assessment, after consideration of the patient's comorbidities, presenting symptoms, or acuity I expect that the services needed warrant INPATIENT care.: Yes I certify that my determination is in accordance with my understanding of Medicare's requirements for reasonable and necessary INPATIENT services [42 CFR 412.3e].: Yes Medical Necessity: Need Close Monitoring Due to Risk of Patient Decompensation, Need For Continuous Telemetry Monitoring, Risk of Complication if Not Cared For in Hospital Post Hospital Care: D/C Industrial Laborer Documentation - Plan Summary Plan Summary: D/C IV Invanz. Start on Augmentin 500/125 mg po tid. D/C IV fluid infusion. Continue all other current medication management. If she continue to demonstrate clinical improvement consider discharge home tomorrow.
[2017-03-28] MEDS ORDERED: TRAMADOL HCL 50 MG TABLET PO PRN (14:30)
[2017-03-28] MEDS ORDERED: INFLUENZA ADLT QUAD (36MOS+) 2017-18 VAC 0.5 ML SYR IM PRN (14:30)
[2017-03-28] MEDS: FLUCONAZOLE 100 MG TABLET PO SCH (16:45)
[2017-03-28] MEDS: ATORVASTATIN CALCIUM 80 MG TABLET PO SCH (22:24)
[2017-03-28] MEDS: AMOXICILLIN TR/POT CLAVULANATE 500-125 MG TAB PO SCH (22:24)
[2017-03-29] MEDS: AMOXICILLIN TR/POT CLAVULANATE 500-125 MG TAB PO SCH (06:00)
[2017-03-29] MEDS: LANSOPRAZOLE 30 MG TAB.RAP.DR PO SCH (06:00)
[2017-03-29] MEDS: LEVOTHYROXINE SODIUM 0.075 MG TABLET PO SCH (06:00)
--- NOTE | 2017-03-29 08:35 | PDOC DISCHARGE SUMMARY ---
General - Admit/Disc Date/PCP Admission Date/Primary Care Provider: 03/23/17 12:55 Discharge Date: 03/29/17 - Discharge Diagnosis (3) Nausea & vomiting Is this a current diagnosis for this admission?: Yes (4) Abdominal pain, acute, left upper quadrant Is this a current diagnosis for this admission?: Yes (5) Abdominal pain, acute, epigastric Is this a current diagnosis for this admission?: Yes (6) Diabetes mellitus type 2, uncontrolled Is this a current diagnosis for this admission?: Yes (7) Pancreatic cyst Is this a current diagnosis for this admission?: Yes (8) Retroperitoneal lymphadenopathy Is this a current diagnosis for this admission?: Yes (9) Hyperlipidemia Is this a current diagnosis for this admission?: Yes (10) Hypothyroidism Is this a current diagnosis for this admission?: Yes (11) GERD (gastroesophageal reflux disease) Is this a current diagnosis for this admission?: Yes (12) History of CVA (cerebrovascular accident) Is this a current diagnosis for this admission?: Yes - Additional Information Discharge Diet: Cardiac, Diabetic Discharge Activity: Activity As Tolerated Home Medications: Aspirin [Aspirin EC] 81 mg PO DAILY 03/23/17 Atorvastatin Calcium [Lipitor 80 mg Tablet] 80 mg PO QHS 03/23/17 Levothyroxine Sodium [Synthroid 0.075 mg Tablet] 0.075 mg PO DAILY 03/23/17 Amox Tr/Potassium Clavulanate [Augmentin "500" Tablet] 1 tab PO Q8 #21 tablet 03/29/17 Metformin HCl 850 mg PO BIDACBS #60 tablet 03/29/17 Trimethobenzamide HCl [Tigan 300 mg Capsule] 300 mg PO TIDP PRN #60 capsule 04/05 History of Present Illness History of Present Illness: KAYLEY CALLOWAY is a 51 year old female presented to the office earlier today as follow up management visit for Diabetes Mellitus but reported worsening abdominal pain, nausea and vomiting over preceding 5 days. She localized pain to LUQ and epigastric region radiating into her back. She related her pain at 10 +/10. She claimed that pain is similar to what led to her recent hospitalization at [facility]. She denied associated fever, hematuria, shortness of breath, or heartburn. She reported associated chills, poor appetite, intermittent nausea and vomiting that has been limiting her ability to eat or drink adequately over last 5 days. Her home accuchek have remained elevated in the range of 139-490mg/dL. Her last HgbA1c on 03/11/2017 was greater than 14. She admitted to missing doses of her medication due to nausea and vomiting. She reported episode of headache but no dizziness. Her morbidities include Diabetes mellitus, Hyperlipidemia, Old stroke, GERD, and Hypothyroidism. Hospital Course Hospital Course: Patient abdominal pain, nausea, and vomiting did improve with IV fluid and Zofran administration She was management with IV Invanz with eventual growth of E. coli on blood culture and oral Diflucan for Randi species UTI. Her hyperglycemia did improve but demonstrate persistent elevation. I increase her Metformin to 850 mg po BIDACBS upon discharge. Further adjustment to her diabetic management will be done on outpatient follow up in the office. She will see me in the office in the next 7 days. She was instructed on home accuchek achs and to present her record for review during follow up office visit. Physical Exam Vital Signs: Temp Pulse Resp BP Pulse Ox 97.7 F 60 16 121/67 96 03/29/17 07:57 03/29/17 07:57 03/29/17 07:57 03/29/17 07:57 03/29/17 07:57 Intake & Output 03/28/17 03/29/17 03/30/17 06:59 06:59 06:59 Intake Total 2930 1565 Output Total 1850 Balance 1080 1565 Physical Exam: General appearance: PRESENT: no acute distress Head exam: PRESENT: atraumatic, normocephalic Eye exam: PRESENT: conjunctiva pink, EOMI, PERRLA. ABSENT: scleral icterus Mouth exam: PRESENT: moist Respiratory exam: PRESENT: clear to auscultation maribell Cardiovascular exam: PRESENT: RRR. ABSENT: diastolic murmur, rubs, systolic murmur GI/Abdominal exam: PRESENT: normal bowel sounds, soft ABSENT: tenderness, distended, guarding, mass, organomegaly, rebound Musculoskeletal exam: PRESENT: normal inspection Neurological exam: PRESENT: alert, awake, oriented to person, oriented to place , oriented to time, oriented to situation, CN II-XII grossly intact. ABSENT: motor sensory deficit Psychiatric exam: PRESENT: appropriate affect, normal mood. ABSENT: homicidal ideation, suicidal ideation Skin exam: PRESENT: dry, intact, warm. ABSENT: cyanosis, rash Results Laboratory Results: 03/27/17 06:42 03/27/17 06:42 Impressions: Abdomen/Pelvis CT 03/23/17 00:00 IMPRESSION: 4.1 x 3.3 cm pancreatic tail cyst, similar compared to CT exam 02/28 Air in the urinary bladder and left upper pole intrarenal collecting system. Multiple left lower pole intrarenal nonobstructive stones. No left ureteral calculus. Stable ectasia left upper pole calices. Left retroperitoneal adenopathy, unchanged from 02/28/2017, similar compared to . Qualifiers PATEINT BEING DISCHARGED WITH ANY OF THE FOLLOWING DIAGNOSIS?: No Plan Discharge Plan: D/C home today. Follow up in the office as instructed upon discharge. She will need urology referral for further evaluation of air in her bladder as indicated on the abdominal Pelvic CT scan completed on admission.
[2017-03-29 08:36] VITALS: BP 125/63
== END 2017-03-29 10:12 | disposition home or self-care (01) | DRG 638 ==
LOC: 5 12:55
PROVIDERS: ADMIT Internal Medicine Geriatric Medicine; ATTEND Internal Medicine Geriatric Medicine
PROC: 3E0234Z Introduction of Serum, Toxoid and Vaccine into Muscle, Percutaneous Approach (ICD-10-PCS; principal; 2017-03-29)
DX: E11.65 Type 2 diabetes mellitus with hyperglycemia (principal); K86.2 Cyst of pancreas; B37.49 Other urogenital candidiasis; R59.1 Generalized enlarged lymph nodes; E78.5 Hyperlipidemia, unspecified; K21.9 Gastro-esophageal reflux disease without esophagitis; T50.906A Underdosing of unspecified drugs, medicaments and biological substances, initial encounter; B96.20 Unspecified Escherichia coli [E. coli] as the cause of diseases classified elsewhere; F17.210 Nicotine dependence, cigarettes, uncomplicated; E89.0 Postprocedural hypothyroidism; R10.12 Left upper quadrant pain; R31.9 Hematuria, unspecified; R10.13 Epigastric pain; Z86.73 Personal history of transient ischemic attack (TIA), and cerebral infarction without residual deficits; Z79.82 Long term (current) use of aspirin; Z79.899 Other long term (current) drug therapy; Z91.128 Patient's intentional underdosing of medication regimen for other reason; Z90.49 Acquired absence of other specified parts of digestive tract; Z88.3 Allergy status to other anti-infective agents; Z88.2 Allergy status to sulfonamides; Z23 Encounter for immunization
CPT/HCPCS: 36415; 74176; 80053; 81001; 82150; 82272; 82962; 83690; 83735; 84439; 84443; 84481; 85025; 87040; 87077; 87086; 87186; 90686; J1335; J1650; J1815; J2270; J2405; J3490; J7030; S0164

== ENCOUNTER 2017-08-09 22:35 | Emergency (ER) | payer OTHER ==
[2017-08-09] MEDS ORDERED: FENTANYL CITRATE INJ/PF 100 MCG/2 ML AMPUL IV ONE (23:12)
[2017-08-09] MEDS ORDERED: ONDANSETRON HCL INJ/PF 4 MG/2 ML SDV IV ONE (23:12)
--- NOTE | 2017-08-09 23:17 | ER Document Report ---
ED General - General Chief Complaint: Nausea/Vomiting Stated Complaint: BACK PAIN,VOMITING Time Seen by Provider: 08/09/17 22:58 Mode of Arrival: Ambulatory Information source: Patient Notes: 52-year-old female history of multiple kidney stones on the left side presents with complaints of nausea vomiting and left flank pain. Patient noted she felt warm at home. She denies any diarrhea states she was seen by urologist who referred her to a provider that she will see on the first. Patient notes symptoms have since worsened TRAVEL OUTSIDE OF THE [place] IN LAST 30 DAYS: No - HPI Onset: Yesterday Onset/Duration: Persistent Quality of pain: Achy Severity: Mild Pain Level: 1 Associated symptoms: Fever, Nausea, Vomiting Exacerbated by: Denies Relieved by: Denies Similar symptoms previously: Yes Recently seen / treated by doctor: Yes - Related Data Allergies/Adverse Reactions: levofloxacin [From Levaquin] Allergy (Verified 03/05/17 14:42) Sulfa (Sulfonamide Antibiotics) Allergy (Verified 03/05/17 14:42) Past Medical History - Social History Smoking Status: Current Every Day Smoker Cigarette use (# per day): Yes Chew tobacco use (# tins/day): No Smoking Education Provided: No Frequency of alcohol use: None Drug Abuse: None Family History: Reviewed & Not Pertinent Patient has suicidal ideation: No Patient has homicidal ideation: No - Past Medical History Cardiac Medical History: Reports: Hx Hypercholesterolemia Denies: Hx Atrial Fibrillation, Hx Congestive Heart Failure, Hx Coronary Artery Disease, Hx DVT, Hx Heart Attack, Hx Hypertension, Hx Pulmonary Embolism Pulmonary Medical History: Denies: Hx Asthma, Hx COPD, Hx Sleep Apnea Neurological Medical History: Reports: Hx Cerebrovascular Accident. Denies: Hx Seizures Endocrine Medical History: Reports: Hx Diabetes Mellitus Type 2, Hx Hypothyroidism - Postoperative; surgery for goiter. Denies: Hx Diabetes Mellitus Type 1, Hx Hyperthyroidism Renal/ Medical History: Reports: Hx Kidney Stones. Denies: Hx Peritoneal Dialysis GI Medical History: Reports: Hx Gastroesophageal Reflux Disease. Denies: Hx Cirrhosis, Hx Hepatitis Musculoskeltal Medical History: Denies Hx Arthritis Psychiatric Medical History: Denies: Hx Depression Infectious Medical History: Denies: Hx Hepatitis Past Surgical History: Reports: Hx Cholecystectomy, Hx Genitourinary Surgery - BLADDER LIFT, Hx Kidney (Renal Surgery) - left nephrostomy tube 2008, Other - Left nephrostomy tube, 2008, due to large stone; bladder tack - Immunizations Hx Diphtheria, Pertussis, Tetanus Vaccination: Yes Hx Pneumococcal Vaccination: 09/18/16 Review of Systems - Review of Systems Notes: REVIEW OF SYSTEMS: CONSTITUTIONAL : admits ot feeling hot EENT: Denies eye, ear, throat, or mouth pain or symptoms. Denies nasal or sinus congestion or discharge. Denies throat, tongue, or mouth swelling or difficulty swallowing. CARDIOVASCULAR: Denies chest pain. Denies palpitations or racing or irregular heart beat. Denies ankle edema. RESPIRATORY: Denies cough, cold, or chest congestion. Denies shortness of breath, difficulty breathing, or wheezing. GASTROINTESTINAL: left flank pain, nausea vomtiing GENITOURINARY: Denies difficulty urinating, painful urination, burning, frequency, blood in urine, or discharge. FEMALE GENITOURINARY: Denies vaginal bleeding, heavy or abnormal periods, irregular periods. Denies vaginal discharge or odor. MUSCULOSKELETAL: Denies back or neck pain or stiffness. Denies joint pain or swelling. SKIN: Denies rash, lesions or sores. HEMATOLOGIC : Denies easy bruising or bleeding. LYMPHATIC: Denies swollen, enlarged glands. NEUROLOGICAL: Denies confusion or altered mental status. Denies passing out or loss of consciousness. Denies dizziness or lightheadedness. Denies headache. Denies weakness or paralysis or loss of use of either side. Denies problems with gait or speech. Denies sensory loss, numbness, or tingling. Denies seizures. PSYCHIATRIC: Denies anxiety or stress. Denies depression, suicidal ideation, or homicidal ideation. ALL OTHER SYSTEMS REVIEWED AND NEGATIVE. PHYSICAL EXAMINATION: GENERAL: Well-appearing, well-nourished and in no acute distress. HEAD: Atraumatic, normocephalic. EYES: strabismus ENT: Nares patent, oropharynx clear without exudates. Moist mucous membranes. NECK: Normal range of motion, supple without lymphadenopathy LUNGS: Breath sounds clear to auscultation bilaterally and equal. No wheezes rales or rhonchi. HEART: Regular rate and rhythm without murmurs ABDOMEN: Soft, left cva tenderness Female : deferred Musculoskeletal: Normal range of motion, no pitting or edema. No cyanosis. NEUROLOGICAL: Cranial nerves grossly intact. Normal speech, normal gait. Normal sensory, motor exams PSYCH: Normal mood, normal affect. SKIN: Warm, Dry, normal turgor, no rashes or lesions noted. Dictation was performed using [employer] voice recognition software Physical Exam - Vital signs Vitals: Temp Pulse Resp BP Pulse Ox 97.9 F 89 20 127/71 H 95 08/09/17 22:48 08/09/17 22:48 08/09/17 22:48 08/09/17 22:48 08/09/17 22:48 Course - Re-evaluation Re-evalutation: 08/09/17 23:17 Lab work imaging pain to rule out pyelonephritis versus kidney stone 08/10/17 02:09 Patient was sent for an ultrasound given elevated liver enzymes, no acute abnormalities noted there, patient was offered admission but defers, she prefers outpatient treatment, given that she is afebrile at this time overall looks well has no significant white count elevation I will allow her to leave with understand that if symptoms do worsen she must return immediately, patient states she understands and will follow instructions significant other in the room agrees with discharge as well After performing a Medical Screening Examination, I estimate there is LOW risk for ACUTE APPENDICITIS, BOWEL OBSTRUCTION, ACUTE CHOLECYSTITIS, PERFORATED DIVERTICULITIS, INCARCERATED HERNIA, PANCREATITIS, PELVIC INFLAMMATORY DISEASE, PERFORATED ULCER, ECTOPIC , or TUBO-OVARIAN ABSCESS, thus I consider the discharge disposition reasonable. Also, there is no evidence or peritonitis , sepsis, or toxicity. I have reevaluated this patient multiple times and no significant life threatening changes are noted. The patient and I have discussed the diagnosis and risks, and we agree with discharging home with close follow-up with the understanding that symptoms and presentations can change. We also discussed returning to the Emergency Department immediately if new or worsening symptoms occur. We have discussed the symptoms which are most concerning (e.g., bloody stool, fever, changing or worsening pain, vomiting) that necessitate immediate return. - Vital Signs Vital signs: Temp Pulse Resp BP Pulse Ox 98.6 F 76 18 110/54 L 96 08/10/17 01:54 08/10/17 01:54 08/10/17 01:54 08/10/17 01:54 08/10/17 01:54 - Laboratory Result Diagrams: 08/09/17 23:15 08/09/17 23:15 Laboratory results interpreted by me: 08/09/17 08/09/1718 23:15 23:15 23:15 WBC 12.4 H Absolute Neutrophils 9.0 H Sodium 136.2 L Glucose 326 H AST 285 H ALT 255 H Alkaline Phosphatase 508 H Urine Protein 100 H Urine Glucose (UA) >=500 H Urine Ketones TRACE H Urine Blood SMALL H Urine Nitrite POSITIVE H Ur Leukocyte Esterase MODERATE H - Diagnostic Test Radiology reviewed: Image reviewed, Reports reviewed Discharge - Discharge Clinical Impression: Pyelonephritis, Elevated liver enzymes Condition: Stable Disposition: HOME, SELF-CARE Instructions: Pyelonephritis ([facility]) Additional Instructions: Please contact the following to set appt [facility] [place] [address] [facility] Office [address] [place], [place] [phone] [place] [facility] [address] [facility]. [place], [place] [phone] Prescriptions: Cephalexin Monohydrate [Keflex 500 mg Capsule] 500 mg PO BID #20 capsule Ondansetron [Zofran Odt 4 mg Tablet] 1 - 2 tab PO Q4H PRN #15 tab.rapdis PRN Reason: For Nausea/Vomiting Oxycodone HCl 5 mg PO Q6 #14 capsule
[2017-08-09 23:31] LABS: ABSOLUTE BASOPHILS # (AUTO) 0.1 10^3/uL (0.0-0.2); ABSOLUTE LYMPHOCYTES (AUTO) 2.3 10^3/uL (0.5-4.7); ABSOLUTE MONOCYTES (AUTO) 0.9 10^3/uL (0.1-1.4); BASOPHILS % (AUTO) 0.8 % (0-2); EOSINOPHILS % (AUTO) 0.4 % (0-6); HEMATOCRIT 41.4 % (36.0-47.0); LYMPHOCYTES % (AUTO) 18.4 % (13-45); MEAN CORPUSCULAR HEMOGLOBIN 29.4 pg (27.0-33.4); MEAN CORPUSCULAR HGB CONC 33.9 g/dL (32.0-36.0); MEAN CORPUSCULAR VOLUME 87 fl (80-97); MONOCYTES % (AUTO) 7.6 % (3-13); PLATELET COUNT 167 10^3/uL (150-450); RED BLOOD COUNT 4.78 10^6/uL (3.72-5.28); RED CELL DISTRIBUTION WIDTH 13.5 % (11.5-14.0); SEGMENTED NEUTROPHILS % (AUTO) 72.8 % (42-78); TOTAL CELLS COUNTED % (AUTO) 100 %; WHITE BLOOD COUNT 12.4 10^3/uL (4.0-10.5)
[2017-08-09 23:45] LABS: ALANINE AMINOTRANSFERASE 255 U/L (9-52); ALBUMIN 4.5 g/dL (3.5-5.0); ALKALINE PHOSPHATASE 508 U/L (38-126); ANION GAP 12 (5-19); ASPARTATE AMINO TRANSFERASE 285 U/L (14-36); BILIRUBIN,DIRECT 0.3 mg/dL (0.0-0.4); BILIRUBIN,TOTAL 1.2 mg/dL (0.2-1.3); BLOOD UREA NITROGEN 14 mg/dL (7-20); CALCIUM 9.3 mg/dL (8.4-10.2); CARBON DIOXIDE 22 mmol/L (22-30); CHLORIDE 102 mmol/L (98-107); GLUCOSE 326 mg/dL (75-110); LIPASE 74.9 U/L (23-300); POTASSIUM 4.3 mmol/L (3.6-5.0); SODIUM 136.2 mmol/L (137-145); TOTAL PROTEIN 7.1 g/dL (6.3-8.2)
[2017-08-09 23:47] LABS: APPEARANCE,URINE CLOUDY; BILIRUBIN,URINE NEGATIVE (NEGATIVE); COLOR,URINE AMBER; GLUCOSE, URINE >=500 mg/dL (NEGATIVE); KETONES,URINE TRACE mg/dL (NEGATIVE); LEUKOCYTE ESTERASE,URINE MODERATE (NEGATIVE); NITRITE,URINE POSITIVE (NEGATIVE); PROTEIN,URINE 100 mg/dL (NEGATIVE); URINE SPECIFIC GRAVITY 1.035; UROBILINOGEN,URINE NEGATIVE mg/dL (<2.0)
[2017-08-09] MEDS ORDERED: CEFTRIAXONE INJ 1000 MG VIAL IV ONE (23:49)
[2017-08-10] MEDS ORDERED: METOCLOPRAMIDE HCL INJ/PF 10 MG/2 ML SDV IV ONE ×2 (00:20→00:32)
[2017-08-10] MEDS ORDERED: FENTANYL CITRATE INJ/PF 100 MCG/2 ML AMPUL IV ONE ×2 (00:20→00:32)
[2017-08-10] MEDS ORDERED: NORMAL SALINE 1000 ML 1,000 ML IV ONE (00:21)
--- NOTE | 2017-08-10 00:31 | RADIOLOGY REPORT (SQ) ---
EXAM DESCRIPTION: CT ABDOMEN AND PELVIS WITHOUT CONTRAST CLINICAL HISTORY: flank pain left COMPARISON: 03/23/2017 TECHNIQUE: CT of the abdomen and pelvis without IV contrast. FINDINGS: Abdomen: The liver has normal size and density. Prior cholecystectomy. There is a 4.1 cm cystic structure involving the tail of the pancreas which is similar in size to previous studies. No abnormalities of the spleen or adrenal glands. Multiple fragmented calculi identified in in the lower pole of the left kidney with small foci of air again identified in the left renal collecting system. Mild left hydronephrosis. No definite obstructing ureteral calculi identified. No hydroureter. Cortical defects in the left kidney are stable. No right-sided hydronephrosis or obstructing ureteral calculi. Aortoiliac atherosclerosis. IVC is unremarkable. Scattered enlarged left periaortic lymph nodes which are stable in appearance. No free intraperitoneal air. The stomach and duodenum have normal course. Pelvis: Uterus is not enlarged. Small amount of air in the urinary bladder. This may be related to catheterization. No free pelvic fluid or lymphadenopathy. No dilated loops of large or small bowel. Normal appendix. The visualized lung bases are clear. No destructive bone lesions identified. Degenerative change of the spine. DLP: 455.34 mGy-cm IMPRESSION: 1. No obstructing ureteral calculi identified. 2. Redemonstrated nonobstructing left renal calculi with decreased left-sided caliectasis from the comparison study. Foci of air are again identified in the left renal collecting system. Left retroperitoneal lymphadenopathy is also again identified. Stable cortical defects are identified. Chronic pyelonephritis is a consideration given persistent lymphadenopathy. 3. Redemonstrated 4.1 cm cystic structure involving the tail of the pancreas. This is stable from previous studies. This exam was performed according to our departmental dose-optimization program, which includes automated exposure control, adjustment of the mA and/or kV according to patient size and/or use of iterative reconstruction technique.
--- NOTE | 2017-08-10 01:56 | RADIOLOGY REPORT (SQ) ---
EXAM DESCRIPTION: U/S ABDOMEN LIMITED W/O DOP CLINICAL HISTORY: elevated liver enzymes COMPARISON: None. TECHNIQUE: Real-time sonographic images of the right upper abdomen were obtained using a curved multihertz transducer. FINDINGS: Hypodense structure involving the tail of the pancreas measuring 4.1 cm. This is compatible with previously visualized 4.1 cm cystic lesion involving the tail of the pancreas. The visualized portions of the aorta and IVC are unremarkable. The liver has normal contour and increased echogenicity. Hepatopedal flow in the portal vein. Common bile duct measures 1.4 cm. Prior cholecystectomy. The right kidney measures 12.0 cm in length. No hydronephrosis, solid renal mass, or shadowing calculi. IMPRESSION: 1. Cholecystectomy. 2. Hepatic steatosis. 3. Mild prominence of the common bile duct. This may be related to prior cholecystectomy. If there is concern for biliary obstruction MRCP could provide more complete characterization. 4. There is a 4.1 cm cystic structure at the tail of the pancreas corresponds with abnormality previously seen on CT.
[2017-08-10 02:38] VITALS: BP 118/69
== END 2017-08-10 02:30 | disposition home or self-care (01) ==
LOC: ER 22:35
DX: N12 Tubulo-interstitial nephritis, not specified as acute or chronic (principal); R74.8 Abnormal levels of other serum enzymes; R11.2 Nausea with vomiting, unspecified; M54.9 Dorsalgia, unspecified; F17.210 Nicotine dependence, cigarettes, uncomplicated; E78.00 Pure hypercholesterolemia, unspecified; E11.9 Type 2 diabetes mellitus without complications; Z88.2 Allergy status to sulfonamides; Z86.73 Personal history of transient ischemic attack (TIA), and cerebral infarction without residual deficits; Z87.442 Personal history of urinary calculi; Z90.49 Acquired absence of other specified parts of digestive tract
CPT/HCPCS: 96376; 99284; 96375; 96365; 36415; 87040; 83690; 85025; 80053; 81001; 76705; 76380; J3010 ×2; J2765; J0696; J2405; J7030

== ENCOUNTER 2017-08-13 23:51 | Emergency (ER) | payer OTHER ==
[2017-08-14] MEDS ORDERED: KETOROLAC TROMETHAMINE INJ/PF 30 MG/1 ML SDV IV ONE (03:09)
--- NOTE | 2017-08-14 03:37 | ER Document Report ---
ED General - General Chief Complaint: Syncope Stated Complaint: FALL Time Seen by Provider: 08/14/17 02:49 Notes: Patient is 52-year-old female presents for complaints of pain in her left abdomen flank. She has this been ongoing now for over a week. She was seen here recently diagnosed with kidney infection. She also had a CT scan which shows that she chronically has intrarenal stones in left side which are unchanged comparison to her previous scans. She said she did see a local urologist who is referring her to another urologist to discuss the procedure to remove the stones. She says she has not made an appointment yet with the other urologist. Should today at work she passed out from the pain. She denies any vomiting. No fevers. No chest pain. No shortness of breath. No other complaints at this time. TRAVEL OUTSIDE OF THE [place] IN LAST 30 DAYS: No - Related Data Allergies/Adverse Reactions: levofloxacin [From Levaquin] Allergy (Verified 03/05/17 14:42) Sulfa (Sulfonamide Antibiotics) Allergy (Verified 03/05/17 14:42) Past Medical History - Social History Smoking Status: Current Every Day Smoker Chew tobacco use (# tins/day): No Frequency of alcohol use: None Drug Abuse: None Family History: Reviewed & Not Pertinent Patient has suicidal ideation: No Patient has homicidal ideation: No - Past Medical History Cardiac Medical History: Reports: Hx Hypercholesterolemia Denies: Hx Atrial Fibrillation, Hx Congestive Heart Failure, Hx Coronary Artery Disease, Hx DVT, Hx Heart Attack, Hx Hypertension, Hx Pulmonary Embolism Pulmonary Medical History: Denies: Hx Asthma, Hx COPD, Hx Sleep Apnea Neurological Medical History: Reports: Hx Cerebrovascular Accident. Denies: Hx Seizures Endocrine Medical History: Reports: Hx Diabetes Mellitus Type 2, Hx Hypothyroidism - Postoperative; surgery for goiter. Denies: Hx Diabetes Mellitus Type 1, Hx Hyperthyroidism Renal/ Medical History: Reports: Hx Kidney Stones. Denies: Hx Peritoneal Dialysis GI Medical History: Reports: Hx Gastroesophageal Reflux Disease. Denies: Hx Cirrhosis, Hx Hepatitis Musculoskeltal Medical History: Denies Hx Arthritis Psychiatric Medical History: Denies: Hx Depression Infectious Medical History: Denies: Hx Hepatitis Past Surgical History: Reports: Hx Cholecystectomy, Hx Genitourinary Surgery - BLADDER LIFT, Hx Kidney (Renal Surgery) - left nephrostomy tube 2008, Hx Thyroid Surgery - Removal 2010, Other - Left nephrostomy tube, 2009, due to large stone; bladder tack - Immunizations Hx Diphtheria, Pertussis, Tetanus Vaccination: Yes Hx Pneumococcal Vaccination: 09/18/16 Review of Systems - Review of Systems Notes: My Normal Review Basic REVIEW OF SYSTEMS: CONSTITUTIONAL : Denies fever, chills, or sweats. Denies recent illness. EENT: Denies eye, ear, throat, or mouth pain or symptoms. Denies nasal or sinus congestion. CARDIOVASCULAR: Denies chest pain. RESPIRATORY: Denies cough, cold, or chest congestion. Denies shortness of breath, difficulty breathing, or wheezing. GASTROINTESTINAL: Left-sided flank abdominal pain. Some nausea. GENITOURINARY: Denies difficulty urinating, painful urination, burning, frequency, or blood in urine. MUSCULOSKELETAL: Denies neck or back pain or joint pain or swelling. SKIN: Denies rash or skin lesions. NEUROLOGICAL: Denies altered mental status or loss of consciousness. Denies headache. Denies weakness or paralysis or loss of use of either side. Denies problems with gait or speech. Denies sensory or motor loss. ALL OTHER SYSTEMS REVIEWED AND NEGATIVE. Physical Exam - Vital signs Vitals: BP Pulse Ox 119/79 97 08/14/17 02:33 08/14/17 02:33 - Notes Notes: General Appearance: Well nourished, alert, cooperative, no acute distress, moderate obvious discomfort. Vitals: reviewed, See vital signs table. Head: no swelling or tenderness to the head Eyes: PERRL, EOMI, Conjuctiva clear Mouth: No decreasd moisture Lungs: No wheezing, No rales, No rhonci, No accessory muscle use, good air exchange bilaterally. Heart: Normal rate, Regular rythm, No murmur, no rub Abdomen: Normal BS, soft, No rigidity, no anterior abdominal tenderness to palpation. Some pain to palpation over left flank., No guarding, no rebound Extremities: strength 5/5 in all extremities, good pulses in all extremities, no swelling or tenderness in the extremities, no edema. Skin: warm, dry, appropriate color, no rash Neuro: speech clear, oriented x 3, normal affect, responds appropriately to questions. Course - Re-evaluation Re-evalutation: 08/14/17 06:29 Please take a medical patient's laboratory evaluation is unremarkable except for elevated blood sugar for which we did give her insulin. She looks well and feels improved after Toradol. Appears that this kidney pain seems to be recurrent problem. She has had recent CT scans and ultrasounds which showed that the she has chronic indwelling stones in the kidney but no ureteral stones. I did a repeat ultrasound today and there is no evidence of hydronephrosis to see just a ureteral stone. I did obtain a cath urine specimen which showed that she has no evidence of infection. She looks well and her vital signs are completely normal. She says that she passed out because of pain in her flank was severe. She had no other concerning symptoms associated with syncope. She did not have chest pain, headache, focal weakness or numbness, or any seizure-like activity. I do not suspect dissection. She has normal vital signs and she has no midline pain. Also she has had recent CT scans which did not show any evidence of aortic aneurysm. I feel she is safe to be discharged home with this time. I encourage follow-up with her primary care doctor tomorrow. I encouraged her follow-up with the urologist as soon as possible. Encouraged her return to ER if she has worsening pain, recurrent syncope vomiting, fevers, or feels unwell. Patient agrees with plan and will be discharged home. Dictation of this chart was performed using voice recognition software; therefore, there may be some unintended grammatical errors. 08/14/17 06:32 - Vital Signs Vital signs: Temp Pulse Resp BP Pulse Ox 17 118/56 L 93 08/14/17 05:01 08/14/17 05:01 08/14/17 05:01 - Laboratory Result Diagrams: 08/14/17 04:24 08/14/17 04:24 Laboratory results interpreted by me: 08/14/17 08/14/17 03:43 04:24 Chloride 96 L Glucose 413 H* Urine Glucose (UA) >=500 H Urine Ketones TRACE H Urine Blood SMALL H - EKG Interpretation by Me Additional EKG results interpreted by me: 08/14/17 03:37 EKG is reviewed and interpreted by me. EKG shows sinus rhythm with rate of [address] segment elevation or depression. No ischemic T-wave inversions. Patient does have a right bundle branch block which is unchanged comparison to her previous EKG from November 09, 2016. MA interval, QTc intervals are within normal range. QRS duration is prolonged. Discharge - Discharge Clinical Impression: Flank pain Syncope Qualifiers: Syncope type: unspecified Qualified Code(s): R55 - Syncope and collapse Condition: Good Disposition: HOME, SELF-CARE Additional Instructions: Please take the pain medicine as prescribed. Please follow up with the urologist you have been referred to. Please return to the ER if you have recurrent worsening pain, chest pain, headache, fevers, vomiting, or feel unwell. Follow up with Dr. Jones tomorrow for revaluation. Prescriptions: Ketorolac Tromethamine [Toradol 10 mg Tablet] 10 mg PO Q8HP PRN #12 tablet PRN Reason: pain Forms: Return to Work Referrals: YULISSA JONES MD [Primary Care Provider] - Follow up tomorrow
[2017-08-14 04:05] LABS: APPEARANCE,URINE CLEAR; BILIRUBIN,URINE NEGATIVE (NEGATIVE); COLOR,URINE STRAW; GLUCOSE, URINE >=500 mg/dL (NEGATIVE); KETONES,URINE TRACE mg/dL (NEGATIVE); LEUKOCYTE ESTERASE,URINE NEGATIVE (NEGATIVE); NITRITE,URINE NEGATIVE (NEGATIVE); PROTEIN,URINE NEGATIVE (NEGATIVE); UROBILINOGEN,URINE NEGATIVE mg/dL (<2.0)
[2017-08-14 04:42] LABS: ABSOLUTE BASOPHILS # (AUTO) 0.2 10^3/uL (0.0-0.2); ABSOLUTE EOSINOPHILS # (AUTO) 0.1 10^3/uL (0.0-0.6); ABSOLUTE LYMPHOCYTES (AUTO) 2.4 10^3/uL (0.5-4.7); ABSOLUTE MONOCYTES (AUTO) 0.8 10^3/uL (0.1-1.4); ABSOLUTE NEUT (AUTO) 6.7 10^3/uL (1.7-8.2); BASOPHILS % (AUTO) 1.5 % (0-2); EOSINOPHILS % (AUTO) 1.3 % (0-6); HEMATOCRIT 41.8 % (36.0-47.0); HEMOGLOBIN 14.1 g/dL (12.0-15.5); LYMPHOCYTES % (AUTO) 23.6 % (13-45); MEAN CORPUSCULAR HEMOGLOBIN 29.2 pg (27.0-33.4); MEAN CORPUSCULAR HGB CONC 33.8 g/dL (32.0-36.0); MEAN CORPUSCULAR VOLUME 86 fl (80-97); MONOCYTES % (AUTO) 7.6 % (3-13); PLATELET COUNT 188 10^3/uL (150-450); RED BLOOD COUNT 4.83 10^6/uL (3.72-5.28); RED CELL DISTRIBUTION WIDTH 13.3 % (11.5-14.0); TOTAL CELLS COUNTED % (AUTO) 100 %; WHITE BLOOD COUNT 10.2 10^3/uL (4.0-10.5)
[2017-08-14 05:03] LABS: ANION GAP 16 (5-19); BLOOD UREA NITROGEN 19 mg/dL (7-20); CALCIUM 9.6 mg/dL (8.4-10.2); CARBON DIOXIDE 25 mmol/L (22-30); CHLORIDE 96 mmol/L (98-107); POTASSIUM 4.3 mmol/L (3.6-5.0)
[2017-08-14 05:28] LABS: GLUCOSE 413 mg/dL (75-110)
[2017-08-14] MEDS ORDERED: INSULIN REG, HUMAN 100 UNIT/ML 3 ML VIAL (PYX) SUBCUT ONE (05:34)
--- NOTE | 2017-08-14 06:39 | RADIOLOGY REPORT (SQ) ---
EXAM DESCRIPTION: U/S RETROPERITON [facility] CLINICAL HISTORY: left sided pain, Hx of kidney stone COMPARISON: 08/10/2017 TECHNIQUE: Real-time sonographic images of the retroperitoneum were obtained using a curved multihertz transducer. FINDINGS: The right kidney measures 11.2 cm in length. The left kidney measures 7.4 cm in length. Mild left hydronephrosis. Hyperechoic foci in the inferior pole of the left kidney compatible with known calculi. The urinary bladder is unremarkable. IMPRESSION: 1. No significant interval change in left renal atrophy with mild left hydronephrosis and punctate nonobstructing calculi.
[2017-08-14 07:06] VITALS: BP 114/62
--- NOTE | 2017-08-14 08:56 | EKG REPORT ---
SEVERITY:- ABNORMAL ECG - SINUS RHYTHM RIGHT BUNDLE BRANCH BLOCK : Confirmed by: Thomas Miramontes MD 14-Aug-2017 08:56:03
== END 2017-08-14 07:06 | disposition home or self-care (01) ==
LOC: ER 23:51
DX: N20.1 Calculus of ureter (principal); R55 Syncope and collapse; E11.65 Type 2 diabetes mellitus with hyperglycemia; I45.10 Unspecified right bundle-branch block; R10.9 Unspecified abdominal pain; R11.0 Nausea; F17.200 Nicotine dependence, unspecified, uncomplicated; Z88.1 Allergy status to other antibiotic agents; Z88.2 Allergy status to sulfonamides
CPT/HCPCS: 93005; 99284; 51701; 96374; 36415; 85025; 80048; 81001; 76775; 93010; J1885; J1815

== ENCOUNTER → 2017-09-02 | Outpatient (CLI) | payer OTHER ==
[2017-09-02 11:48] LABS: ABSOLUTE BASOPHILS # (AUTO) 0.1 10^3/uL (0.0-0.2); ABSOLUTE EOSINOPHILS # (AUTO) 0.2 10^3/uL (0.0-0.6); ABSOLUTE LYMPHOCYTES (AUTO) 3.2 10^3/uL (0.5-4.7); ABSOLUTE MONOCYTES (AUTO) 0.6 10^3/uL (0.1-1.4); ABSOLUTE NEUT (AUTO) 4.1 10^3/uL (1.7-8.2); BASOPHILS % (AUTO) 0.8 % (0-2); HEMATOCRIT 40.2 % (36.0-47.0); HEMOGLOBIN 13.4 g/dL (12.0-15.5); MEAN CORPUSCULAR HEMOGLOBIN 29.1 pg (27.0-33.4); MEAN CORPUSCULAR HGB CONC 33.4 g/dL (32.0-36.0); MEAN CORPUSCULAR VOLUME 87 fl (80-97); MONOCYTES % (AUTO) 7.9 % (3-13); PLATELET COUNT 195 10^3/uL (150-450); RED BLOOD COUNT 4.61 10^6/uL (3.72-5.28); SEGMENTED NEUTROPHILS % (AUTO) 50.3 % (42-78); TOTAL CELLS COUNTED % (AUTO) 100 %; WHITE BLOOD COUNT 8.1 10^3/uL (4.0-10.5)
[2017-09-02 12:12] LABS: ALANINE AMINOTRANSFERASE 50 U/L (9-52); ALBUMIN 4.5 g/dL (3.5-5.0); ALKALINE PHOSPHATASE 102 U/L (38-126); ANION GAP 13 (5-19); ASPARTATE AMINO TRANSFERASE 27 U/L (14-36); BILIRUBIN,DIRECT 0.2 mg/dL (0.0-0.4); BILIRUBIN,TOTAL 0.3 mg/dL (0.2-1.3); BLOOD UREA NITROGEN 17 mg/dL (7-20); CALCIUM 9.9 mg/dL (8.4-10.2); CARBON DIOXIDE 25 mmol/L (22-30); CHLORIDE 108 mmol/L (98-107); CHOLESTEROL 109.84 mg/dL (0-200); GLUCOSE 74 mg/dL (75-110); POTASSIUM 4.2 mmol/L (3.6-5.0); TOTAL PROTEIN 6.7 g/dL (6.3-8.2); TRIGLYCERIDES 120 mg/dL (<150)
[2017-09-02 12:23] LABS: DIRECT LDL 51 mg/dL (<100)
[2017-09-03 07:42] LABS: HEPATITIS A AB IGM Negative (Negative); HEPATITIS B CORE AB IGM Negative (Negative); HEPATITS B SURFACE ANTIGEN Negative (Negative)
[2017-09-03 09:15] LABS: HEPATITIS C VIRUS ANTIBODY 0.1 s/co ratio (0.0-0.9)
[2017-09-03 15:37] LABS: CREATININE URINE 63.8 mg/dL (Not Estab.); MICROALBUMIN URINE 24.8 ug/mL (Not Estab.)
== END ==
LOC: OD 10:43
PROVIDERS: ATTEND Internal Medicine Geriatric Medicine
DX: E11.21 Type 2 diabetes mellitus with diabetic nephropathy (principal); E11.65 Type 2 diabetes mellitus with hyperglycemia; R94.5 Abnormal results of liver function studies
CPT/HCPCS: 36415; 80053; 80061; 80074; 82043; 82570; 85025

== ENCOUNTER 2017-10-12 17:05 | Emergency (ER) | payer OTHER ==
[2017-10-12] MEDS ORDERED: ONDANSETRON 4 MG TAB.RAPDIS PO ONE (17:58)
[2017-10-12] MEDS ORDERED: KETOROLAC TROMETHAMINE INJ/PF 30 MG/1 ML SDV IV ONE (17:58)
--- NOTE | 2017-10-12 17:59 | ER Document Report ---
ED Medical Screen (RME) - General Chief Complaint: Flank Pain Stated Complaint: FLANK PAIN Time Seen by Provider: 10/12/17 17:57 Notes: Patient reports 2 days of severe left flank pain with nausea. TRAVEL OUTSIDE OF THE [place] IN LAST 30 DAYS: No - Related Data Allergies/Adverse Reactions: levofloxacin [From Levaquin] Allergy (Verified 10/12/17 17:06) Sulfa (Sulfonamide Antibiotics) Allergy (Verified 10/12/17 17:06) Past Medical History - Past Medical History Cardiac Medical History: Reports: Hx Hypercholesterolemia Denies: Hx Atrial Fibrillation, Hx Congestive Heart Failure, Hx Coronary Artery Disease, Hx DVT, Hx Heart Attack, Hx Hypertension, Hx Pulmonary Embolism Pulmonary Medical History: Denies: Hx Asthma, Hx COPD, Hx Sleep Apnea Neurological Medical History: Reports: Hx Cerebrovascular Accident. Denies: Hx Seizures Endocrine Medical History: Reports: Hx Diabetes Mellitus Type 2, Hx Hypothyroidism - Postoperative; surgery for goiter. Denies: Hx Diabetes Mellitus Type 1, Hx Hyperthyroidism Renal/ Medical History: Reports: Hx Kidney Stones. Denies: Hx Peritoneal Dialysis GI Medical History: Reports: Hx Gastroesophageal Reflux Disease. Denies: Hx Cirrhosis, Hx Hepatitis Musculoskeltal Medical History: Denies Hx Arthritis Psychiatric Medical History: Denies: Hx Depression Infectious Medical History: Denies: Hx Hepatitis Past Surgical History: Reports: Hx Cholecystectomy, Hx Genitourinary Surgery - BLADDER LIFT, Hx Kidney (Renal Surgery) - left nephrostomy tube 2008, Hx Thyroid Surgery - Removal 2010, Other - Left nephrostomy tube, 2008, due to large stone; bladder tack - Immunizations Hx Diphtheria, Pertussis, Tetanus Vaccination: Yes History of Influenza Vaccine for 03/2017 - 08/2017 Season: No Physical Exam - Vital signs Vitals: Temp Pulse Resp BP Pulse Ox 97.8 F 91 15 105/72 96 10/12/17 17:08 10/12/17 17:08 10/12/17 17:08 10/12/17 17:08 10/12/17 17:08 Course - Vital Signs Vital signs: Temp Pulse Resp BP Pulse Ox 97.8 F 91 15 105/72 96 10/12/17 17:08 10/12/17 17:08 10/12/17 17:08 10/12/17 17:08 10/12/17 17:08
[2017-10-12] MEDS ORDERED: KETOROLAC TROMETHAMINE 60 MG/2 ML SDV IM ONE (18:20)
[2017-10-12 18:42] LABS: ABSOLUTE BASOPHILS # (AUTO) 0.1 10^3/uL (0.0-0.2); ABSOLUTE EOSINOPHILS # (AUTO) 0.3 10^3/uL (0.0-0.6); ABSOLUTE LYMPHOCYTES (AUTO) 2.8 10^3/uL (0.5-4.7); ABSOLUTE NEUT (AUTO) 3.9 10^3/uL (1.7-8.2); BASOPHILS % (AUTO) 0.7 % (0-2); EOSINOPHILS % (AUTO) 3.4 % (0-6); HEMATOCRIT 44.3 % (36.0-47.0); LYMPHOCYTES % (AUTO) 35.1 % (13-45); MEAN CORPUSCULAR HEMOGLOBIN 29.4 pg (27.0-33.4); MEAN CORPUSCULAR HGB CONC 33.8 g/dL (32.0-36.0); MEAN CORPUSCULAR VOLUME 87 fl (80-97); MONOCYTES % (AUTO) 12.1 % (3-13); PLATELET COUNT 180 10^3/uL (150-450); RED CELL DISTRIBUTION WIDTH 14.4 % (11.5-14.0); SEGMENTED NEUTROPHILS % (AUTO) 48.7 % (42-78); TOTAL CELLS COUNTED % (AUTO) 100 %; WHITE BLOOD COUNT 7.9 10^3/uL (4.0-10.5)
[2017-10-12 18:58] LABS: ALANINE AMINOTRANSFERASE 41 U/L (9-52); ALBUMIN 4.5 g/dL (3.5-5.0); ALKALINE PHOSPHATASE 126 U/L (38-126); ANION GAP 16 (5-19); ASPARTATE AMINO TRANSFERASE 33 U/L (14-36); BILIRUBIN,DIRECT 0.3 mg/dL (0.0-0.4); BILIRUBIN,TOTAL 0.7 mg/dL (0.2-1.3); BLOOD UREA NITROGEN 22 mg/dL (7-20); CALCIUM 9.7 mg/dL (8.4-10.2); CARBON DIOXIDE 23 mmol/L (22-30); CHLORIDE 107 mmol/L (98-107); GLUCOSE 89 mg/dL (75-110); POTASSIUM 3.9 mmol/L (3.6-5.0); SODIUM 145.8 mmol/L (137-145); TOTAL PROTEIN 7.5 g/dL (6.3-8.2)
[2017-10-12 18:59] LABS: APPEARANCE,URINE CLOUDY; BILIRUBIN,URINE NEGATIVE (NEGATIVE); COLOR,URINE YELLOW; GLUCOSE, URINE NEGATIVE (NEGATIVE); KETONES,URINE NEGATIVE (NEGATIVE); LEUKOCYTE ESTERASE,URINE LARGE (NEGATIVE); NITRITE,URINE POSITIVE (NEGATIVE); PROTEIN,URINE 30 mg/dL (NEGATIVE); URINE SPECIFIC GRAVITY 1.018; UROBILINOGEN,URINE NEGATIVE mg/dL (<2.0)
--- NOTE | 2017-10-12 19:05 | RADIOLOGY REPORT (SQ) ---
EXAM DESCRIPTION: CT ABD/PELVIS NO ORAL OR IV COMPLETED DATE/TIME: 10/12/2017 6:40 pm REASON FOR STUDY: left flank pain COMPARISON: 03/23/2017 TECHNIQUE: CT scan of the abdomen and pelvis performed without intravenous or oral contrast. Images reviewed with lung, soft tissue, and bone windows. Reconstructed coronal and sagittal MPR images revi ewed. All images stored on PACS. All CT scanners at this facility use dose modulation, iterative reconstruction, and/or weight based d osing when appropriate to reduce radiation dose to as low as reasonably achievable (ALARA). [facility]: Dose Right [facility]: CareDose [facility]: Dose Right [facility]: Teradose 4D [facility]: Trusted Opinion RADIATION DOSE: CT Rad equipment meets quality standard of care and radiation dose reduction techniq ues were employed. CTDIvol: 5.5 mGy. DLP: 298 mGy-cm.mGy. LIMITATIONS: None. FINDINGS: LOWER CHEST: No significant findings. No nodules or infiltrates. NON-CONTRASTED LIVER, SPLEEN, ADRENALS: Evaluation limited by lack of IV contrast. No identified sign ificant masses. PANCREAS: Similar 3.6 cm cyst in the pancreatic tail. No peripancreatic inflammatory changes. GALLBLADDER: Surgically absent. RIGHT KIDNEY AND URETER: No suspicious masses. Assessment limited by lack of IV contrast. No signif icant calcifications. No hydronephrosis or hydroureter. LEFT KIDNEY AND URETER: Similar appearance of gas in the left renal upper pole calices, though dimini shed compared with the prior study. Numerous calcified stones are present throughout the renal colle cting system as well as in the UPJ. No ureteral stone or acute obstruction identified. Assessment l imited by lack of IV contrast. AORTA AND RETROPERITONEUM: No aneurysm. Similar left upper retroperitoneal adenopathy. BOWEL AND PERITONEAL CAVITY: No obvious masses or inflammatory changes. No free fluid. APPENDIX: Normal. PELVIS, BLADDER, AND ABDOMINAL WALL:No abnormal masses. No free fluid. Bladder decompressed. BONES: No acute findings. OTHER: No other significant finding. IMPRESSION: Similar appearance of gas in the left renal upper pole calices, though diminished compar ed with the prior study. Numerous calcified stones are present throughout the renal collecting syste m as well as in the UPJ. No ureteral stone or acute obstruction identified. Similar left upper retro peritoneal adenopathy. Similar 3.6 cm cyst in the pancreatic tail. No peripancreatic inflammatory changes. COMMENT: Quality ID # [id number]: Final reports with documentation of one or more dose reduction techniques (e.g., Automated exposure control, adjustment of the mA and/or kV according to patient size, use of iterative reconstruction technique) TECHNICAL DOCUMENTATION: JOB ID: [id number] [place]-72 2010 [employer]- All Rights Reserved Reading location - IP/workstation name: [email or web address]
[2017-10-12] MEDS ORDERED: CEFTRIAXONE 1 GM/D5W RTU 50 ML IV ONE (20:06)
--- NOTE | 2017-10-12 20:12 | ER Document Report ---
ED General - General Chief Complaint: Flank Pain Stated Complaint: FLANK PAIN Time Seen by Provider: 10/12/17 17:57 TRAVEL OUTSIDE OF THE [place] IN LAST 30 DAYS: No - HPI Notes: Patient is a 52-year-old female with a history of type 1 diabetes, insulin- dependent, who presents to the ED complaining of left flank pain that radiates into her groin 2 days. Patient states that her pain has been relatively constant. Patient does not report any issues with urinations. She has been eating and drinking light abilities. She is having normal bowel movements as well. Patient denies any injury. Patient reports an allergy to levofloxacin and sulfa antibiotics. Patient states that she does have a history of kidney stones. She denies any other recent illness. Denies any headache, fever, neck pain, changes in vision/speech/mentation/hearing, URI, sore throat, chest pain, palpitations, syncope, cough, shortness of breath, wheeze, dyspnea, abdominal pain, nausea/vomiting/diarrhea, urinary retention, dysuria, hematuria, loss of control of bowel or bladder, numbness/tingling, saddle anesthesia, muscle paralysis/weakness, or rash. - Related Data Allergies/Adverse Reactions: levofloxacin [From Levaquin] Allergy (Verified 10/12/17 17:06) Sulfa (Sulfonamide Antibiotics) Allergy (Verified 10/12/17 17:06) Past Medical History - Social History Smoking Status: Current Every Day Smoker Chew tobacco use (# tins/day): No Frequency of alcohol use: None Drug Abuse: None Family History: Reviewed & Not Pertinent Patient has suicidal ideation: No Patient has homicidal ideation: No - Past Medical History Cardiac Medical History: Reports: Hx Hypercholesterolemia Denies: Hx Atrial Fibrillation, Hx Congestive Heart Failure, Hx Coronary Artery Disease, Hx DVT, Hx Heart Attack, Hx Hypertension, Hx Pulmonary Embolism Pulmonary Medical History: Denies: Hx Asthma, Hx COPD, Hx Sleep Apnea Neurological Medical History: Reports: Hx Cerebrovascular Accident. Denies: Hx Seizures Endocrine Medical History: Reports: Hx Diabetes Mellitus Type 2, Hx Hypothyroidism - Postoperative; surgery for goiter. Denies: Hx Diabetes Mellitus Type 1, Hx Hyperthyroidism Renal/ Medical History: Reports: Hx Kidney Stones. Denies: Hx Peritoneal Dialysis GI Medical History: Reports: Hx Gastroesophageal Reflux Disease. Denies: Hx Cirrhosis, Hx Hepatitis Musculoskeltal Medical History: Denies Hx Arthritis Psychiatric Medical History: Denies: Hx Depression Infectious Medical History: Denies: Hx Hepatitis Past Surgical History: Reports: Hx Cholecystectomy, Hx Genitourinary Surgery - BLADDER LIFT, Hx Kidney (Renal Surgery) - left nephrostomy tube 2008, Hx Thyroid Surgery - Removal 2010, Other - Left nephrostomy tube, 2008, due to large stone; bladder tack - Immunizations Hx Diphtheria, Pertussis, Tetanus Vaccination: Yes Hx Pneumococcal Vaccination: 09/18/16 Review of Systems - Review of Systems -: Yes All other systems reviewed and negative Physical Exam - Vital signs Vitals: Temp Pulse Resp BP Pulse Ox 97.8 F 91 15 105/72 96 10/12/17 17:08 10/12/17 17:08 10/12/17 17:08 10/12/17 17:08 10/12/17 17:08 - Notes Notes: PHYSICAL EXAMINATION: GENERAL: Well-appearing, well-nourished and in no acute distress. A&Ox4. LUNGS: Breath sounds clear to auscultation bilaterally and equal. No wheezes rales or rhonchi. HEART: Regular rate and rhythm without murmurs, rubs, gallops. ABDOMEN: Soft, nontender, nondistended abdomen. No guarding, no rebound. No masses appreciated. Normal bowel sounds present. + mild CVA tenderness. Musculoskeletal: FROM to passive/active. Strength 5+/5. Extremities: No cyanosis, clubbing, or edema b/l. Peripheral pulses 2+. Capillary refill less than 3 seconds. NEUROLOGICAL: Normal speech, normal gait. Normal sensory, motor exams PSYCH: Normal mood, normal affect. SKIN: Warm, Dry, normal turgor, no rashes or lesions noted. Course - Re-evaluation Re-evalutation: 10/12/17 20:14 Patient is an afebrile, well-hydrated, 52-year-old female who presents to the ED with a UTI and suspected pyelonephritis. Vitals are acceptable. PE is otherwise unremarkable. Patient does have numerous small calculi within the renal system not including the ureters and without any obstruction. Patient is tolerating p.o. without any difficulties. She does not have any tachycardia, tachypnea, or hypoxia. CBC, CMP unremarkable for any acute pathology. See CT scan results. See urinalysis results. Urine culture is pending. Patient was given 1 g of Rocephin IV. Reviewed case with Dr. Vazquez who is in agreement with dispo and plan. I will send her home with a prescription for Keflex to take 3 times a day. Low suspicion/risk for acute appendicitis, bowel obstruction, acute cholecystitis, acute cholangitis, perforated diverticulitis, incarcerated hernia, pancreatitis, perforated ulcer, peritonitis, sepsis, or other systemic emergent condition at this time. Patient is aware that her condition can change from initial presentation and she needs to monitor symptoms closely and seek medical attention if any acute changes. Conservative measures otherwise for symptoms. Recheck with urology tomorrow. Recheck with your PCM in 3-5 days. Return to the ED with any worsening/concerning symptoms otherwise as reviewed in discharge. Patient is in agreement. - Vital Signs Vital signs: Temp Pulse Resp BP Pulse Ox 97.8 F 91 15 105/72 96 10/12/17 17:08 10/12/17 17:08 10/12/17 17:08 10/12/17 17:08 10/12/17 17:08 - Laboratory Result Diagrams: 10/12/17 18:20 10/12/17 18:20 Laboratory results interpreted by me: 10/12/17 10/12/17 10/12/17 18:20 18:20 18:20 RDW 14.4 H Sodium 145.8 H BUN 22 H Urine Protein 30 H Urine Blood SMALL H Urine Nitrite POSITIVE H Ur Leukocyte Esterase LARGE H Discharge - Discharge Clinical Impression: Pyelonephritis UTI (urinary tract infection) Qualifiers: Urinary tract infection type: site unspecified Hematuria presence: with hematuria Qualified Code(s): N39.0 - Urinary tract infection, site not specified ; R31.9 - Hematuria, unspecified; R31.9 - Hematuria, unspecified Condition: Stable Disposition: HOME, SELF-CARE Instructions: Cephalexin ([facility]), Pyelonephritis ([facility]), Urinary Tract Infection ( [facility]) Additional Instructions: Push fluids (i.e. water, cranberry juice) Proper hygenic technique Keep the skin clean Tylenol/ibuprofen as needed May use over the counter AZO for burning with urination Take medications as directed F/u with your PCM in 3-5 days for a recheck F/u with urology tomorrow * Return to the ED with any worsening symptoms and/or development of fever, headache, chest pain, palpitations, syncope, shortness of breath, trouble breathing, abdominal pain, n/v/d, blood in stool/urine, loss of control of bowel /bladder, urinary retention, or other worsening symptoms that are concerning to you. Prescriptions: Cephalexin Monohydrate [Keflex 500 mg Capsule] 500 mg PO TID #30 capsule Referrals: YULISSA JONES MD [Primary Care Provider] - Follow up in 3-5 days [facility] [Provider Group] - Follow up tomorrow SEAN BRUNSON MD [[facility]] - Follow up tomorrow
[2017-10-12] MEDS ORDERED: CEPHALEXIN 500 MG CAPSULE PO ONE (20:19)
[2017-10-12] MEDS ORDERED: CEFTRIAXONE SODIUM 1,000 MG in DEXTROSE 5%-WATER 100 ML IV ONE (20:30)
[2017-10-12] MEDS ORDERED: CEFTRIAXONE INJ 1000 MG VIAL ONE (20:32)
[2017-10-12 21:19] VITALS: BP 114/71
== END 2017-10-12 21:28 | disposition home or self-care (01) ==
LOC: ER 17:05
DX: N12 Tubulo-interstitial nephritis, not specified as acute or chronic (principal); N20.0 Calculus of kidney; E10.9 Type 1 diabetes mellitus without complications; F17.200 Nicotine dependence, unspecified, uncomplicated; Z88.1 Allergy status to other antibiotic agents; Z88.2 Allergy status to sulfonamides
CPT/HCPCS: 99284; 96372; 96365; 36415; 87086; 85025; 87088; 80053; 81001; 87186; 74176; J1885; S0119; J0696

== ENCOUNTER 2017-11-13 23:50 | Emergency (ER) | payer OTHER ==
[2017-11-14] MEDS ORDERED: KETOROLAC TROMETHAMINE INJ/PF 30 MG/1 ML SDV IV ONE (00:24)
[2017-11-14] MEDS ORDERED: NORMAL SALINE 1000 ML 1,000 ML IV ONE (00:24)
[2017-11-14 00:52] LABS: ABSOLUTE EOSINOPHILS # (AUTO) 0.1 10^3/uL (0.0-0.6); ABSOLUTE LYMPHOCYTES (AUTO) 1.5 10^3/uL (0.5-4.7); ABSOLUTE MONOCYTES (AUTO) 1.4 10^3/uL (0.1-1.4); BASOPHILS % (AUTO) 0.3 % (0-2); EOSINOPHILS % (AUTO) 0.5 % (0-6); HEMATOCRIT 41.2 % (36.0-47.0); HEMOGLOBIN 13.6 g/dL (12.0-15.5); LYMPHOCYTES % (AUTO) 10.8 % (13-45); MEAN CORPUSCULAR HEMOGLOBIN 28.8 pg (27.0-33.4); MEAN CORPUSCULAR VOLUME 88 fl (80-97); MONOCYTES % (AUTO) 9.9 % (3-13); PLATELET COUNT 135 10^3/uL (150-450); RED BLOOD COUNT 4.72 10^6/uL (3.72-5.28); RED CELL DISTRIBUTION WIDTH 14.7 % (11.5-14.0); SEGMENTED NEUTROPHILS % (AUTO) 78.5 % (42-78); TOTAL CELLS COUNTED % (AUTO) 100 %
[2017-11-14] MEDS ORDERED: MORPHINE SULFATE 10 MG/ML INJ IV PRN (01:45)
--- NOTE | 2017-11-14 01:49 | ER Document Report ---
ED General - General Chief Complaint: Flank Pain Stated Complaint: LUMBAR PAIN Time Seen by Provider: 11/14/17 00:23 Notes: Patient is a 52-year-old female with past medical history of recurrent kidney infections, hypertension, who presents with 24 hours of progressively worsening left flank pain and suprapubic abdominal pain. She notes associated nausea and vomiting as well as subjective fever. She reports that this feels similar to when she has had kidney infections in the past. She does describe the pain in her flank as being a throbbing, aching, stabbing pain. Nothing improves or worsens her symptoms. She has not seen her primary doctor regarding today's concerns. TRAVEL OUTSIDE OF THE [place] IN LAST 30 DAYS: No - Related Data Allergies/Adverse Reactions: levofloxacin [From Levaquin] Allergy (Verified 10/12/17 17:06) Sulfa (Sulfonamide Antibiotics) Allergy (Verified 10/12/17 17:06) Past Medical History - General Information source: Patient - Social History Smoking Status: Current Every Day Smoker Chew tobacco use (# tins/day): No Frequency of alcohol use: None Drug Abuse: None Lives with: Spouse/Significant other Family History: Reviewed & Not Pertinent Patient has suicidal ideation: No Patient has homicidal ideation: No - Past Medical History Cardiac Medical History: Reports: Hx Hypercholesterolemia Denies: Hx Atrial Fibrillation, Hx Congestive Heart Failure, Hx Coronary Artery Disease, Hx DVT, Hx Heart Attack, Hx Hypertension, Hx Pulmonary Embolism Pulmonary Medical History: Denies: Hx Asthma, Hx COPD, Hx Sleep Apnea Neurological Medical History: Reports: Hx Cerebrovascular Accident. Denies: Hx Seizures Endocrine Medical History: Reports: Hx Diabetes Mellitus Type 2, Hx Hypothyroidism - Postoperative; surgery for goiter. Denies: Hx Diabetes Mellitus Type 1, Hx Hyperthyroidism Renal/ Medical History: Reports: Hx Kidney Stones. Denies: Hx Peritoneal Dialysis GI Medical History: Reports: Hx Gastroesophageal Reflux Disease. Denies: Hx Cirrhosis, Hx Hepatitis Musculoskeltal Medical History: Denies Hx Arthritis Psychiatric Medical History: Denies: Hx Depression Infectious Medical History: Denies: Hx Hepatitis Past Surgical History: Reports: Hx Cholecystectomy, Hx Genitourinary Surgery - BLADDER LIFT, Hx Kidney (Renal Surgery) - left nephrostomy tube 2008, Hx Thyroid Surgery - Removal 2010, Other - Left nephrostomy tube, 2008, due to large stone; bladder tack - Immunizations Hx Diphtheria, Pertussis, Tetanus Vaccination: Yes Hx Pneumococcal Vaccination: 09/18/16 Review of Systems - Review of Systems Notes: Constitutional: Positive for subjective fever. HENT: Negative for sore throat. Eyes: Negative for visual changes. Cardiovascular: Negative for chest pain. Respiratory: Negative for shortness of breath. Gastrointestinal: Positive for lower abdominal pain and flank pain. Positive for vomiting. Genitourinary: Positive for dysuria. Musculoskeletal: Negative for back pain. Skin: Negative for rash. Neurological: Negative for headaches, weakness or numbness. 10 point ROS negative except as marked above and in HPI. Physical Exam - Vital signs Vitals: Temp Pulse Resp BP Pulse Ox 98.9 F 110 H 18 102/60 94 11/13/17 23:56 11/13/17 23:56 11/13/17 23:56 11/13/17 23:56 11/13/17 23:56 Interpretation: Tachycardic Notes: PHYSICAL EXAMINATION: GENERAL: Appears moderately uncomfortable but no acute distress HEAD: Atraumatic, normocephalic. EYES: Pupils equal round and reactive to light, extraocular movements intact, sclera anicteric, conjunctiva are normal. ENT: nares patent, oropharynx clear without exudates. Moderately dry mucous membranes. NECK: Normal range of motion, supple without lymphadenopathy LUNGS: Breath sounds clear to auscultation bilaterally and equal. No wheezes rales or rhonchi. HEART: Regular tachycardia without murmurs ABDOMEN: Soft, exquisite left CVA tenderness. Mild tenderness to palpation in the suprapubic region. No other localized areas of tenderness. No rebound or guarding. EXTREMITIES: Normal range of motion, no pitting or edema. No cyanosis. NEUROLOGICAL: No focal neurological deficits. Moves all extremities spontaneously and on command. PSYCH: Normal mood, normal affect. SKIN: Warm, Dry, normal turgor, no rashes or lesions noted. Course - Re-evaluation Re-evalutation: 11/14/17 01:49 Presentation is most consistent with acute pyelonephritis. Laboratories do demonstrate a large amount of white blood cells in the urine as well as bacteria. Patient has had constitutional symptoms at home as well as a fever. CVA tenderness is present on exam. The remainder laboratories are relatively unremarkable without evidence of renal dysfunction. I do not suspect an acute appendicitis, biliary pathology, pancreatitis, intra-abdominal abscess, or tubo- ovarian abscess based on history and examination. Patient has been given a dose of IV ceftriaxone and a liter of fluids. Patient is able to tolerate oral intake without difficulty. Will be discharged home on 7 day course of cephalexin. A urine culture has been sent. Strict return precautions and follow-up recommendations have been discussed at length. - Vital Signs Vital signs: Temp Pulse Resp BP Pulse Ox 98.9 F 110 H 18 102/60 94 11/13/17 23:56 11/13/17 23:56 11/13/17 23:56 11/13/17 23:56 11/13/17 23:56 - Laboratory Result Diagrams: 11/14/17 00:41 11/14/17 01:36 Laboratory results interpreted by me: 11/14/17 11/14/17 11/14/17 00:41 01:36 02:01 WBC 14.0 H RDW 14.7 H Plt Count 135 L Seg Neutrophils % 78.5 H Lymphocytes % 10.8 L Absolute Neutrophils 11.0 H Sodium 146.5 H Potassium 3.3 L Chloride 114 H Carbon Dioxide 21 L Glucose 123 H Calcium 8.3 L Total Protein 5.7 L Albumin 3.2 L Urine Protein 100 H Urine Blood LARGE H Ur Leukocyte Esterase LARGE H Discharge - Discharge Clinical Impression: Pyelonephritis Nausea and vomiting Qualifiers: Vomiting type: unspecified Vomiting Intractability: non-intractable Qualified Code(s): R11.2 - Nausea with vomiting, unspecified Condition: Good Disposition: HOME, SELF-CARE Additional Instructions: You have been diagnosed with a condition called pyelonephritis which is an infection involving your kidneys and bladder. You have been given a dose of antibiotics here in the emergency department to help begin to treat this infection. Your also being sent home on antibiotics. Please start taking these later on today when you fill the prescription. Complete the course even if you feel better. Please return if you have persistent vomiting, pass out, have worsening pain, become unable to tolerate fluids, or have any other symptoms that are concerning to you. Please follow-up with your primary care physician in the next 24-48 hours. Prescriptions: Cephalexin Monohydrate [Keflex 500 mg Capsule] 500 mg PO Q6H 7 Days capsule
[2017-11-14 02:11] LABS: ALANINE AMINOTRANSFERASE 33 U/L (9-52); ALBUMIN 3.2 g/dL (3.5-5.0); ALKALINE PHOSPHATASE 90 U/L (38-126); ANION GAP 12 (5-19); ASPARTATE AMINO TRANSFERASE 15 U/L (14-36); BILIRUBIN,DIRECT 0.3 mg/dL (0.0-0.4); BILIRUBIN,TOTAL 0.7 mg/dL (0.2-1.3); BLOOD UREA NITROGEN 16 mg/dL (7-20); CALCIUM 8.3 mg/dL (8.4-10.2); CARBON DIOXIDE 21 mmol/L (22-30); CHLORIDE 114 mmol/L (98-107); GLUCOSE 123 mg/dL (75-110); LIPASE 44.5 U/L (23-300); POTASSIUM 3.3 mmol/L (3.6-5.0); SODIUM 146.5 mmol/L (137-145); TOTAL PROTEIN 5.7 g/dL (6.3-8.2)
[2017-11-14 02:18] LABS: APPEARANCE,URINE CLOUDY; BILIRUBIN,URINE NEGATIVE (NEGATIVE); COLOR,URINE YELLOW; GLUCOSE, URINE NEGATIVE (NEGATIVE); KETONES,URINE NEGATIVE (NEGATIVE); LEUKOCYTE ESTERASE,URINE LARGE (NEGATIVE); NITRITE,URINE NEGATIVE (NEGATIVE); PROTEIN,URINE 100 mg/dL (NEGATIVE); URINE SPECIFIC GRAVITY 1.014; UROBILINOGEN,URINE NEGATIVE mg/dL (<2.0)
[2017-11-14] MEDS ORDERED: CEFTRIAXONE INJ 1000 MG VIAL IV ONE (02:46)
[2017-11-14 04:03] VITALS: BP 109/62
== END 2017-11-14 04:01 | disposition home or self-care (01) ==
LOC: ER 23:50
DX: N10 Acute pyelonephritis (principal); R11.2 Nausea with vomiting, unspecified; R50.9 Fever, unspecified; E78.00 Pure hypercholesterolemia, unspecified; Z86.73 Personal history of transient ischemic attack (TIA), and cerebral infarction without residual deficits; Z87.442 Personal history of urinary calculi; Z90.49 Acquired absence of other specified parts of digestive tract
CPT/HCPCS: 99284; 96361; 96375; 96365; 36415; 87086; 83690; 85025; 87088; 80053; 81001; 87186; J1885; J2270; J0696; J7030

== ENCOUNTER → 2017-12-16 | Outpatient (CLI) | payer OTHER ==
[2017-12-16 12:36] LABS: FREE T3 3.4 pg/mL (2.77-5.27); FREE T4 (FREE THYROXINE) 0.86 ng/dL (0.78-2.19)
[2017-12-16 12:50] LABS: THYROID STIMULATING HORMONE 2.88 uIU/mL (0.47-4.68)
== END ==
LOC: OD 11:19
PROVIDERS: ATTEND Internal Medicine Geriatric Medicine
DX: E03.9 Hypothyroidism, unspecified (principal); E11.65 Type 2 diabetes mellitus with hyperglycemia; E11.21 Type 2 diabetes mellitus with diabetic nephropathy
CPT/HCPCS: 36415; 82043; 82570; 83036; 84439; 84443; 84481

== ENCOUNTER 2017-12-26 18:23 | Emergency (ER) | payer OTHER ==
--- NOTE | 2017-12-26 18:33 | ER Document Report ---
ED Medical Screen (RME) - General Chief Complaint: Low Blood Sugar Stated Complaint: BLOOD SUGAR ISSUE Time Seen by Provider: 12/26/17 18:30 Notes: RAPID MEDICAL EVALUATION DISCLOSURE I have seen this patient as part of a Rapid Medical Evaluation and, if applicable, placed any initially appropriate orders. The patient will be seen and fully evaluated, including a full history and physical exam, by a provider ( in Main ED or Fast Track) when a room becomes available. 52-year-old female PMH diabetes here with complaints of dry cough over the past few days and today started to have some nausea, shortness of breath, and just feeling bad all over. The shortness of breath started only when the extreme nausea started and she feels it is related to the nausea. She does not currently have any shortness of breath chest pain diaphoresis lightheadedness but does feel nauseous. Denies vomiting diarrhea dysuria frequency abdominal pain back/flank pain. Her blood sugar at home was 50 but she has not been taking more insulin than she has been directed. EXAM CTAB RRR Mild suprapubic TTP TRAVEL OUTSIDE OF THE [place] IN LAST 30 DAYS: No - Related Data Allergies/Adverse Reactions: levofloxacin [From Levaquin] Allergy (Verified 10/12/17 17:06) Sulfa (Sulfonamide Antibiotics) Allergy (Verified 10/12/17 17:06) Past Medical History - Past Medical History Cardiac Medical History: Reports: Hx Hypercholesterolemia Denies: Hx Atrial Fibrillation, Hx Congestive Heart Failure, Hx Coronary Artery Disease, Hx DVT, Hx Heart Attack, Hx Hypertension, Hx Pulmonary Embolism Pulmonary Medical History: Denies: Hx Asthma, Hx COPD, Hx Sleep Apnea Neurological Medical History: Reports: Hx Cerebrovascular Accident. Denies: Hx Seizures Endocrine Medical History: Reports: Hx Diabetes Mellitus Type 2, Hx Hypothyroidism - Postoperative; surgery for goiter. Denies: Hx Diabetes Mellitus Type 1, Hx Hyperthyroidism Renal/ Medical History: Reports: Hx Kidney Stones. Denies: Hx Peritoneal Dialysis GI Medical History: Reports: Hx Gastroesophageal Reflux Disease. Denies: Hx Cirrhosis, Hx Hepatitis Musculoskeltal Medical History: Denies Hx Arthritis Psychiatric Medical History: Denies: Hx Depression Infectious Medical History: Denies: Hx Hepatitis Past Surgical History: Reports: Hx Cholecystectomy, Hx Genitourinary Surgery - BLADDER LIFT, Hx Kidney (Renal Surgery) - left nephrostomy tube 2008, Hx Thyroid Surgery - Removal 2010, Other - Left nephrostomy tube, 2008, due to large stone; bladder tack - Immunizations Hx Diphtheria, Pertussis, Tetanus Vaccination: Yes History of Influenza Vaccine for 03/2017 - 08/2017 Season: No Doctor's Discharge - Discharge Referrals: YULISSA JONES MD [Primary Care Provider] - Follow up as needed
--- NOTE | 2017-12-26 19:16 | ER Document Report ---
ED Blood Sugar Problem <TREVOR WHALEY - Last Filed: 12/26/17 21:30> - General Mode of Arrival: Ambulatory Information source: Patient TRAVEL OUTSIDE OF THE [place] IN LAST 30 DAYS: No <MARTHA TYSON - Last Filed: 12/26/17 21:40> - General Chief Complaint: Low Blood Sugar Stated Complaint: BLOOD SUGAR ISSUE Time Seen by Provider: 12/26/17 18:30 Notes: 52 y.o female with HLD, type 2 DM, CVA in September 2016 and Hypothyroidism presents to the ED with low BGL of onset late last night. at bedside reports that she has not eaten today the amount which she normally eats but reports that she would eat something after getting a low blood glucose reading. Pt reports some nausea when her BGL drops around 50. Pt reports a change in her diabetes medication about a month ago when she was taken off of Lantis because she is uninsured. She reports taking Levamir 25 units morning and night and Humalog on a sliding scale. She states that she is also taking Losartan for kidney protection, thyroid medication and medication for HLD at home. 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 She also reports that her CVA in September of 2016 left her with weakness to her right side at baseline. (MARTHA TYSON) - Related Data Allergies/Adverse Reactions: levofloxacin [From Levaquin] Allergy (Verified 10/12/17 17:06) Sulfa (Sulfonamide Antibiotics) Allergy (Verified 10/12/17 17:06) Past Medical History - General Information source: Patient - Social History Smoking Status: Current Every Day Smoker Cigarette use (# per day): Yes - 1 pack/day Chew tobacco use (# tins/day): No Smoking Education Provided: Yes Frequency of alcohol use: None Drug Abuse: None Family History: Reviewed & Not Pertinent Patient has suicidal ideation: No Patient has homicidal ideation: No - Past Medical History Cardiac Medical History: Reports: Hx Hypercholesterolemia, Hx Hypertension Neurological Medical History: Reports: Hx Cerebrovascular Accident Endocrine Medical History: Reports: Hx Diabetes Mellitus Type 2, Hx Hypothyroidism - Postoperative; surgery for goiter Renal/ Medical History: Reports: Hx Kidney Stones GI Medical History: Reports: Hx Gastroesophageal Reflux Disease Past Surgical History: Reports: Hx Cholecystectomy, Hx Genitourinary Surgery - BLADDER LIFT, Hx Kidney (Renal Surgery) - left nephrostomy tube 2008, Hx Thyroid Surgery - Removal 2010, Other - Left nephrostomy tube, 2008, due to large stone; bladder tack - Immunizations Hx Diphtheria, Pertussis, Tetanus Vaccination: Yes Hx Pneumococcal Vaccination: 09/18/16 <AMRTHA TYSON - Last Filed: 12/26/17 21:40> Review of Systems - Review of Systems Constitutional: See HPI, Other - Low BGL EENT: No symptoms reported Cardiovascular: No symptoms reported Respiratory: No symptoms reported Gastrointestinal: See HPI, Nausea Genitourinary: No symptoms reported Female Genitourinary: No symptoms reported Musculoskeletal: No symptoms reported Skin: No symptoms reported Hematologic/Lymphatic: No symptoms reported Neurological/Psychological: No symptoms reported -: Yes All other systems reviewed and negative <MARTHA TYSON - Last Filed: 12/26/17 21:40> Physical Exam <TREVOR WHALEY - Last Filed: 12/26/17 21:30> <MARTHA TYSON - Last Filed: 12/26/17 21:40> - Vital signs Vitals: Temp Pulse Resp BP Pulse Ox 97.1 F 69 22 H 105/65 98 12/26/17 18:37 12/26/17 18:37 12/26/17 18:37 12/26/17 18:37 12/26/17 18:37 - Notes Notes: Physical Exam: General: Alert, appears well. HEENT: Normocephalic. Atraumatic. PERRL. LT lazy eye. Missing LT upper teeth. Neck: Supple. Non-tender. Respiratory: No respiratory distress. Clear and equal breath sounds bilaterally. Cardiovascular: Regular rate and rhythm. Abdominal: Normal Inspection. Soft, non-tender. No distension. Normal Bowel Sounds. Back: Non-tender. No deformity or step off. Extremities: Moves all four extremities. Upper extremities: Normal inspection. Normal ROM. Lower extremities: Normal inspection. No edema. Normal ROM. Neurological: Normal cognition. AAOx3. Speech is deliberate and weakness to RT facial muscles and RT sided extremities consistent with hx of CVA in September of 2016. Psychological: Normal affect. Normal Mood. Skin: Warm. Dry. Normal color. (MARTHA TYSON) Course - Laboratory Result Diagrams: 12/26/17 18:41 12/26/17 18:41 <TREVOR WHALEY - Last Filed: 12/26/17 21:30> - Laboratory Result Diagrams: 12/26/17 18:41 12/26/17 18:41 <MARTHA TYSON - Last Filed: 12/26/17 21:40> - Vital Signs Vital signs: Temp Pulse Resp BP Pulse Ox 97.1 F 69 22 H 105/65 98 12/26/17 18:37 12/26/17 18:37 12/26/17 18:37 12/26/17 18:37 12/26/17 18:37 - Laboratory Laboratory results interpreted by me: 12/26/17 12/26/17 12/26/17 18:41 18:41 18:41 RDW 15.6 H Sodium 148.5 H Chloride 109 H Glucose 68 L POC Glucose Urine Glucose (UA) 150 H Urine Nitrite POSITIVE H Urine Urobilinogen 2.0 H Ur Leukocyte Esterase MODERATE H 12/26/17 20:45 RDW Sodium Chloride Glucose POC Glucose 111 H Urine Glucose (UA) Urine Nitrite Urine Urobilinogen Ur Leukocyte Esterase Discharge <TREVRO WHALEY - Last Filed: 12/26/17 21:30> <MARTHA TYSON - Last Filed: 12/26/17 21:40> - Discharge Clinical Impression: Hypoglycemia Urinary tract infection Qualifiers: Urinary tract infection type: site unspecified Hematuria presence: with hematuria Qualified Code(s): N39.0 - Urinary tract infection, site not specified Condition: Stable Disposition: HOME, SELF-CARE Additional Instructions: Urinary Tract Infection: Your evaluation indicates that you have a urinary tract infection. This is due to germs growing in the bladder. This is a common problem. This infection usually responds quickly to antibiotics. Your antibiotic should be taken exactly as prescribed. Drink plenty of fluids -- three to four quarts a day. Occasionally, a bladder anesthetic will be prescribed to help stop the feeling of urgency until the antibiotic has a chance to clear the infection. This may cause your urine to be dark orange. Certain urine infections require a culture. If the doctor obtained a culture, the results will be back in two days. You should call to see if a change in treatment is needed. A repeat urinalysis after you finish treatment is often recommended. The physician will let you know if further testing is required. Call the doctor if you develop fever, chills, flank pain, inability to urinate, or blood in the urine. Hypoglycemia: You have been having hypoglycemia (low blood sugar). Typical symptoms of hypoglycemia are shaking, sweating, headache, and confusion. When severe, unconsciousness or seizure may occur. Hypoglycemia occurs when a person taking insulin or diabetes pills has a change in the amount of blood sugar available - - due to exercise, decreased food intake, or alcohol. Should you feel symptoms of hypoglycemia again, immediately take some form of sugar such as sweetened juice. As the reaction subsides, eat a complex carbohydrate such as bread. If possible, check your blood sugar using a chemical strip. If episodes are occurring without obvious explanation, contact your physician for further evaluation. Take the medication as prescribed for your bladder infection. Drink plenty of fluids. Check your sugars throughout the day and evening, and if they begin to drop, then eat something with calories in it. Reduce your Levemir dose to 20 units tonight and be sure to eat before you go to bed. Follow-up with Dr. Jones tomorrow if you continue to have low blood sugars or any other symptoms. RETURN TO THE EMERGENCY ROOM IF ANY NEW OR WORSENING SYMPTOMS. Prescriptions: Cephalexin Monohydrate [Keflex 500 mg Capsule] 500 mg PO TID #15 capsule Forms: Return to Work Referrals: YULISSA JONES MD [Primary Care Provider] - Follow up tomorrow Scribe Attestation: 12/26/17 20:43 I personally performed the services described in the documentation, reviewed and edited the documentation which was dictated to the scribe in my presence, and it accurately records my words and actions. (TREVOR WHALEY) Scribe Documentation - Scribe Written by Jose Enrique:: Jose Enrique Haynes [id number]/[id number] acting as scribe for Dr.:: Fani <MARTHA TYSON - Last Filed: 12/26/17 21:40>
[2017-12-26 19:19] LABS: ABSOLUTE BASOPHILS # (AUTO) 0.1 10^3/uL (0.0-0.2); ABSOLUTE EOSINOPHILS # (AUTO) 0.2 10^3/uL (0.0-0.6); ABSOLUTE LYMPHOCYTES (AUTO) 3.7 10^3/uL (0.5-4.7); ABSOLUTE MONOCYTES (AUTO) 0.7 10^3/uL (0.1-1.4); ABSOLUTE NEUT (AUTO) 4.6 10^3/uL (1.7-8.2); BASOPHILS % (AUTO) 0.7 % (0-2); EOSINOPHILS % (AUTO) 2.6 % (0-6); HEMATOCRIT 43.2 % (36.0-47.0); HEMOGLOBIN 14.6 g/dL (12.0-15.5); LYMPHOCYTES % (AUTO) 39.5 % (13-45); MEAN CORPUSCULAR HEMOGLOBIN 29.2 pg (27.0-33.4); MEAN CORPUSCULAR HGB CONC 33.7 g/dL (32.0-36.0); MEAN CORPUSCULAR VOLUME 86 fl (80-97); MONOCYTES % (AUTO) 7.6 % (3-13); PLATELET COUNT 180 10^3/uL (150-450); RED CELL DISTRIBUTION WIDTH 15.6 % (11.5-14.0); SEGMENTED NEUTROPHILS % (AUTO) 49.6 % (42-78); TOTAL CELLS COUNTED % (AUTO) 100 %; WHITE BLOOD COUNT 9.3 10^3/uL (4.0-10.5)
[2017-12-26 19:31] LABS: APPEARANCE,URINE SLIGHTLY-CLOUDY; BILIRUBIN,URINE NEGATIVE (NEGATIVE); COLOR,URINE YELLOW; GLUCOSE, URINE 150 mg/dL (NEGATIVE); KETONES,URINE NEGATIVE (NEGATIVE); LEUKOCYTE ESTERASE,URINE MODERATE (NEGATIVE); NITRITE,URINE POSITIVE (NEGATIVE); PROTEIN,URINE NEGATIVE (NEGATIVE); URINE SPECIFIC GRAVITY 1.021
[2017-12-26 19:39] LABS: ALANINE AMINOTRANSFERASE 30 U/L (9-52); ALBUMIN 4.6 g/dL (3.5-5.0); ALKALINE PHOSPHATASE 89 U/L (38-126); ANION GAP 16 (5-19); ASPARTATE AMINO TRANSFERASE 16 U/L (14-36); BILIRUBIN,DIRECT 0.3 mg/dL (0.0-0.4); BILIRUBIN,TOTAL 0.4 mg/dL (0.2-1.3); BLOOD UREA NITROGEN 16 mg/dL (7-20); CALCIUM 9.4 mg/dL (8.4-10.2); CARBON DIOXIDE 24 mmol/L (22-30); CHLORIDE 109 mmol/L (98-107); GLUCOSE 68 mg/dL (75-110); LIPASE 278.3 U/L (23-300); POTASSIUM 3.6 mmol/L (3.6-5.0); SODIUM 148.5 mmol/L (137-145); TOTAL PROTEIN 7.4 g/dL (6.3-8.2)
--- NOTE | 2017-12-26 20:07 | RADIOLOGY REPORT (SQ) ---
EXAM DESCRIPTION: CHEST 2 VIEWS COMPLETED DATE/TIME: 12/26/2017 7:57 pm REASON FOR STUDY: cough, hypoglycemia; eval pneumonia COMPARISON: 11/09/2016 EXAM PARAMETERS: NUMBER OF VIEWS: two views TECHNIQUE: Digital Frontal and Lateral radiographic views of the chest acquired. RADIATION DOSE: NA LIMITATIONS: none FINDINGS: LUNGS AND PLEURA: No acute opacities, masses or pneumothorax. No pleural effusion. MEDIASTINUM AND HILAR STRUCTURES: Stable. HEART AND VASCULAR STRUCTURES: Heart normal size. No evidence for failure. BONES: No acute findings. HARDWARE: None in the chest. OTHER: No other significant finding. IMPRESSION: NO ACUTE RADIOGRAPHIC FINDING IN THE CHEST. TECHNICAL DOCUMENTATION: JOB ID: [id number] [id number] 2010 [employer]- All Rights Reserved Reading location - IP/workstation name: [email or web address]
[2017-12-26] MEDS ORDERED: DEXTROSE 40% GEL 15 GM TUBE PO ONE (20:21)
[2017-12-26] MEDS ORDERED: ONDANSETRON 4 MG TAB.RAPDIS PO ONE (20:45)
[2017-12-26] MEDS ORDERED: CEPHALEXIN 500 MG CAPSULE PO ONE (20:45)
[2017-12-26 21:59] VITALS: BP 114/67
== END 2017-12-26 22:04 | disposition home or self-care (01) ==
LOC: ER 18:23
DX: N39.0 Urinary tract infection, site not specified (principal); E11.649 Type 2 diabetes mellitus with hypoglycemia without coma; E78.5 Hyperlipidemia, unspecified; Z86.73 Personal history of transient ischemic attack (TIA), and cerebral infarction without residual deficits; R11.0 Nausea; F17.210 Nicotine dependence, cigarettes, uncomplicated; I10 Essential (primary) hypertension
CPT/HCPCS: 99285; 36415; 87086; 82962; 83690; 85025; 87088; 80053; 81001; 87186; 71046; S0119